=== PATIENT | male | born 1965 | race Caucasian/White ===

== ENCOUNTER 2023-06-26 22:52 | Inpatient (IN) | payer OTHER, SELFPAY ==
[2023-06-26 18:03] VITALS: BP 139/77
[2023-06-26 18:07] LABS: Glucose - Point of Care 334 mg/dl (70-99)
[2023-06-26 18:22] VITALS: BP 129/76
[2023-06-26 18:28] VITALS: BMI 15.7
[2023-06-26] MEDS: NSS 1000 IV ×2 (18:44→21:41)
[2023-06-26 18:47] LABS: Venous Blood Gas B.E. -3.2 mmol/L (-4 to +4); Venous Blood Gas pCO2 39 mmHg (35-48); Venous Blood Gas pH 7.36 (7.32-7.43); Venous Blood Gas pO2 49 mmHg (30-50)
[2023-06-26 18:57] LABS: % Basophils 0.6 % (0-2); % Eosinophils 3.3 % (0-6); % Immature Granulocytes 0.4 % (0-0.5); % Lymphocytes 19.8 % (20.5-51.1); % Monocytes 9.4 % (1.7-9.3); % Neutrophils 66.5 % (42.2-75.2); Absolute Basophils 0.1 10^3/uL (0-0.2); Absolute Eosinophils 0.3 10^3/uL (0-0.7); Absolute Lymphocytes 1.9 10^3/uL (1.2-3.4); Absolute Monocytes 0.9 10^3/uL (0.1-0.6); Absolute Neutrophils 6.3 10^3/uL (1.4-6.5); Hematocrit 28.6 % (39.0-52.0); Hemoglobin 10.6 g/dL (13.0-18.0); Mean Corp Hgb Conc. 37.1 g/dL (33.0-37.0); Mean Corpuscular Hgb 34.9 pg (27.0-31.0); Mean Corpuscular Volume 94.1 fL (80.0-94.0); Nucleated Red Blood Cells % 0 % (-); Red Blood Cell Count 3.04 10^6/uL (4.70-6.10); Red Cell Dist. Width 14.4 % (11.5-14.5); White Blood Cell Count 9.5 10^3/uL (4.8-10.8)
--- NOTE | 2023-06-26 18:58 | ED.GENMED ---
History of Present Illness
General
Chief Complaint: Blood Sugar Problem
Time Seen by Provider: 06/26/23 18:40
Travel History
Have you had any contact with someone who has COVID-19?: No
Do you have any symptoms of coronavirus? Fever > 100 degrees, chills, cough, shortness of breath, sore throat, loss of taste or smell, muscle aches, or headache?: No
History of Present Illness
History of Present Illness:
57-year-old male with history of insulin-dependent diabetes, alcoholic cirrhosis with ascites, and hypertension presents to the emergency department from [facility], accompanied by a staff member, for evaluation of mental status changes
in association with elevated blood sugar for the past 5 days. According to staff member the sugars are occasionally reading 'high' but today were in the 500s. Patient states to me he has been a resident at the [facility] for 6 months but the
staff member refutes this states it has been much shorter than that, states 'probably a few weeks'. Pt can provide little history otherwise.
Review of Systems
Review of Systems
Allergies reviewed?: Yes
All Other Systems: ROS reviewed and negative except as documented in HPI and ROS
Phy Exam
Physical Exam
Physical Exam:
GEN: Well appearing, NAD, WDWN
Eyes: PERRLA, EOMs intact, no scleral icterus
HENT: NCAT, oral mucosa moist, no JVD, no cervical adenopathy.
Lungs: CTAB, no wheezes, rales, rhonchi, normal chest wall excursion
Cardiac: RRR, no M/R/G, no peripheral edema. Radial pulses 2+ bilat
Abdomen: S, NT, ND, NABS, no masses or hepatosplenomegaly
Neuro: Alert, follows commands however appears to be confused, disoriented to time place and year, appears to be ataxic when ambulating, no focal extremity weakness
MSK: No gross deformity or ecchymosis. No edema. No digital clubbing
Skin: No rashes, petechiae. Normal color, no pallor or jaundice.
Psych: Calm, cooperative, proper hygiene
Course
Orders/Labs/Results
Orders:
Orders
06/26/23 18:40
B-Hydroxybutyrate Urgent
Comment: ADDON
Complete Blood Count/With Diff Urgent
Comprehensive Metabolic Panel Urgent
Ferritin Urgent
Comment: ADD ON
Folate Urgent
Comment: ADD ON
Iron Urgent
Comment: ADD ON
Magnesium Urgent
Comment: ADD ON
Serum Osmolality Urgent
Comment: ADD ON
TSH Reflex To Free T4 Urgent
Comment: ADD ON
Total Iron Binding Urgent
Comment: ADD ON
Venous Blood Gas Urgent
%Oxygen/Room Air: 98
Vitamin B12 Urgent
Comment: ADD ON
06/26/23 18:43
0.9% Sodium Chloride 1000 ml [Nss] 1,000 ml IV BOLUS
06/26/23 18:56
Add On- LAB Urgent
Tests Added?: acetone (beta hydroxy)
06/26/23 19:17
Ammonia Urgent
Prothrombin Time Urgent
06/26/23 19:59
CT Head W/o Iv Contrast Urgent
Comment:
Reason For Exam: altered mental status
0.9% Sodium Chloride 1000 ml [Nss] 1,000 ml IV BOLUS
Insulin Aspart [NOVOLOG vial] 15 units SC NOW STA
06/26/23 20:40
Osmolality, Random Urine Urgent
Date Specimen was Collected: 06/26/23
Time Specimen was Collected: 19:00
Comment: ADD ON
Urinalysis Reflex To Culture Urgent
Date Specimen was Collected: 06/26/23
Time Specimen was Collected: 19:00
Urine Sodium Urgent
Date Specimen was Collected: 06/26/23
Time Specimen was Collected: 19:00
Comment: ADD ON
02/17/24 21:43
Bedside Glucose- Treatment ONCE
Lactulose [Duphalac/Chronulac] 20 grams PO NOW STA
06/26/23 22:08
US Abdomen Limited Urgent
Comment:
Reason For Exam: eval for ascites
06/26/23 22:10
Add On- LAB Urgent
Tests Added?: tsh with free t4, urine na, urine osmo , serum osmo,mag
06/26/23 22:19
Add On- LAB Urgent
Tests Added?: b12 folate iron tibc, ferritin
06/26/23 22:20
Admit/Transfer Patient As Directed
Co-Sign Provider:
Level of Care: Inpatient admission
Assign to:: Telemetry
Physician / Group: evelyn blanco
Diagnosis: enceph poss etoh wtihdrawal vs wernicki vs hyperammonemia
Reason for Telemetry: Arrhythmia
Date to Stop Telemetry: 06/29/23
Time to Stop Telemetry: 11:00
Reason for Hospitalization: enceph poss etoh wtihdrawal vs wernicki vs hyperammonemia
Expected length of stay greater than two midnights?: Yes
ELOS- Estimated Length of Stay in days: 4
I certify the patient meets the requirements for IP care: Yes
Code Status As Directed
Resuscitation Status: Full Code
CefTRIAXone [Rocephin] 1,000 mg IV NOW STA
06/26/23 22:24
Sterile Water [Sterile Water For Injection] 10 ml IV NOW STA
06/26/23 23:00
Flush (0.9% Sodium Chloride) [Flush (Nss)] See Dose Instructions IV PER PROTOCOL
06/26/23 23:31
0.9% Sodium Chloride 1000 ml [Nss] 1,000 ml IV 60 mls/hr
0.9% Sodium Chloride [Nss (Preservative Free)] See Protocol IV PRN PRN
Dextrose 50%-Water [Dextrose 50% Syringe] 12.5 grams IV [id number] PRN
FOLic ACID [Folvite] 1 mg 0.9% Sodium Chloride 50 ml [Nss] 50 ml IV DAILYPRN
Glucagon [GlucaGen] 1 mg IM PRN PRN
Lorazepam [Ativan] 1 mg IV Q1HPRN PRN
Lorazepam [Ativan] 1 mg PO Q2HPRN PRN
Lorazepam [Ativan] 2 mg IV Q1HPRN PRN
Mirtazapine [Remeron] 15 mg PO HS PRN
Pantoprazole [Protonix] 40 mg PO HSPRN PRN
06/26/23 23:31
Case Management Consult Once
Case Management Consult: Other
Comment: Substance abuse counseling
DIETARY CONSULT Routine
Reason for Consult: Nutrition support, possible refeeding guidelines
Urinalysis Routine
Urine Drug Abuse Screen Routine
Activity As Directed
Activity Level: As Tolerated
Bedside Glucose Monitoring As Directed
Frequency: AC&HS
Comment: Change to q6h if pt on TPN, tube feeding or not eating
Intake/ Output As Directed
Frequency: Per unit guidelines
MSAS SCORE As Directed
MSAS Score 0-4: Repeat MSAS every 2 hours until 0-4 for three consecutive assessments, then every 4 hours x 48
hours.
MSAS Score 5-7: For MILD withdrawl symptoms. Repeat MSAS and RASS every 2 hours
MSAS Score 8-11: For MODERATE withdrawal symptoms. Repeat MSAS and RASS every 1 hour. Consider ICU or IMU
level of care.
MSAS Score > 11: For SEVERE withdrawal symptoms. Repeat MSAS and RASS every 1 hour. Notify provider, consider
ICU level of care.
MSAS Additional Instructions: If no improvement or no decrease in score from severe to moderate within 12
hours, consult psychiatry
MSAS Notify Provider: Notify provider if patient requires more than 10 mg of Lorazepam in eight hour period.
Neurological Checks As Directed
Frequency: q4h
Pneumatic Compression Sleeves As Directed
Type: Knee high
Precautions As Directed
Type of Precautions: Other
Comment: fall
Vital Signs As Directed
Frequency: Per unit guidelines
Ot Eval And Treat Routine
Pt Eval And Treat Routine
Activity Level: As Tolerated
DX Deep Vein Thrombosis Video Routine
06/26/23 23:47
Alcohol Urgent
B-Hydroxybutyrate Urgent
GGTP Urgent
Magnesium Urgent
Phosphorus Urgent
06/27/23 00:00
Thiamine Injection 200 mg IV Q8
06/27/23 Breakfast
1800 calorie (15 carb) Diabetic
At Your Request: Full Participation
Complete Blood Count/With Diff IN AM
Comprehensive Metabolic Panel IN AM
Glycohemoglobin (HgbA1c) IN AM
06/27/23 07:30
Insulin Aspart Corrective Mod [Novolog Flexpen-Moderate Resistance] See Protocol SC AC
06/27/23 08:00
Docusate Sodium [Colace] 100 mg PO BID
FOLic ACID [Folvite] 1 mg PO DAILY
Ferrous Sulfate [Feosol] 325 mg PO DAILY
Fluticasone/Salmeterol 115/21 [Advair Hfa 115/21 Mcg Inhaler] 2 puff INH R BID
Ipratropium/Albuterol Sulfate [Duoneb] 3 ml INH R TID
Lactulose [Duphalac/Chronulac] 45 grams PO TID
venlafaxine 150 mg PO DAILY
06/27/23 22:00
ARIPiprazole [Abilify] 5 mg PO HS
Prazosin HCl [Minipress] 5 mg PO HS
06/27/23 23:00
CefTRIAXone [Rocephin] 1,000 mg IV Q24H
Sterile Water [Sterile Water For Injection] 10 ml IV Q24H
06/28/23 06:00
Complete Blood Count/With Diff IN AM
Comprehensive Metabolic Panel IN AM
06/29/23 06:00
Complete Blood Count/With Diff IN AM
Comprehensive Metabolic Panel IN AM
06/29/23 11:00
DC Protocol for Telemetry ONCE
06/30/23 08:00
Thiamine HCl [Vitamin B1] 100 mg PO BID
Abnormal Lab Results
06/26/23 06/26/23 06/26/23
18:06 18:40 19:17
RBC 3.04 L 10^6/uL
(4.70-6.10)
Hgb 10.6 L g/dL
(13.0-18.0)
Hct 28.6 L %
(39.0-52.0)
MCV 94.1 H fL
(80.0-94.0)
MCH 34.9 H pg
(27.0-31.0)
MCHC 37.1 H g/dL
(33.0-37.0)
Plt Count 65 L 10^3/uL
(130-400)
MPV 10.9 H fL
(7.4-10.4)
Absolute Monos (auto) 0.9 H 10^3/uL
(0.1-0.6)
Lymphocytes % 19.8 L %
(20.5-51.1)
Monocytes % 9.4 H %
(1.7-9.3)
PT 19.0 H Sec
(11.4-14.6)
Sodium 129 L mmol/L
(135-145)
Carbon Dioxide 21 L mmol/L
(22-30)
BUN 24 H mg/dl
(9-20)
Creatinine 1.7 H mg/dL
(0.7-1.3)
Glucose 314 H mg/dl
(70-99)
TIBC 212 L ug/dl
(261-462)
Total Bilirubin 2.5 H mg/dl
(0.2-1.3)
ALT 57 H U/L
(0-50)
Ammonia 66 H umol/L
(9-30)
Total Protein 5.6 L g/dl
(6.3-8.2)
Albumin 2.5 L g/dl
(3.5-5.0)
Urine Glucose
POC Glucose 334 H mg/dl
(70-99)
06/26/23 06/26/23 06/26/23
20:40 20:50 22:05
RBC
Hgb
Hct
MCV
MCH
MCHC
Plt Count
MPV
Absolute Monos (auto)
Lymphocytes %
Monocytes %
PT
Sodium
Carbon Dioxide
BUN
Creatinine
Glucose
TIBC
Total Bilirubin
ALT
Ammonia
Total Protein
Albumin
Urine Glucose Trace A
(Negative)
POC Glucose 314 H mg/dl 273 H mg/dl
(70-99) (70-99)
06/26/23 18:40
06/26/23 18:40
Vital Signs
Initial and Last Documented VS:
Initial Vital Signs
Temp Pulse Resp BP Pulse Ox
98.2 F 89 18 139/77 100
06/26/23 18:03 06/26/23 18:03 06/26/23 18:03 06/26/23 18:03 06/26/23 18:03
Last Documented Vital Signs
Temp Pulse Resp BP Pulse Ox
98.2 F 86 14 106/70 99
06/26/23 18:03 06/26/23 23:15 06/26/23 23:15 06/26/23 23:00 06/26/23 19:45
MDM/Problems Addressed
MDM/Problems Addressed:
Patient is clearly encephalopathic but the source is not known at this time. Certainly could consider Warnicke Korsakoff syndrome however patient's recent sobriety would suggest against this developing acutely. I feel he is likely out of the
timeframe for alcohol withdrawal. That said it is not known exactly how long he has been in a sober living house and how compliant with restrictions he has been. Unfortunately history is quite limited as the patient cannot provide any solid
details. Elevated ammonia level may suggest hepatic encephalopathy however he was noted to be elevated to a greater degree earlier this week at his facility and his mental status is only worsened. CT of the head is unremarkable. Will admit to the
hospitalist service for further management
*Critical Care Note
Total Time (30-74mins, 75-104mins- exclusive of procedures): Not Applicable
ED Attending Note
-
Portions of this chart may have been created with voice recognition software.� Occasional wrong word or��sound alike� substitutions may have occurred due to the inherent limitations of voice recognition software.
Discharge Plan
Departure
Patient Disposition: Admit
Date of Disposition: 06/26/23
Time of Disposition: 21:45
Presentation/result/management discussed w/ accepting MD/DO: Hospitalist
Discharge Problem:
Acute metabolic encephalopathy, Hyperammonemia
Interventions
Interventions:
*Risk Screen - Suicide Last Done: 06/26/23 18:28
*General Assessment Last Done: 06/26/23 18:28
*Neglect/Abuse Screening Last Done: 06/26/23 18:28
ED- Fall Risk Assessment Last Done: 06/26/23 18:28
*ED COVID-19 Vaccine History Last Done: 06/26/23 18:28
*Nursing Disposition Last Done: 06/26/23 23:40
ED- Neurological Assessment Last Done: 06/26/23 18:28
Discharge Date and Time
Discharge Date/Time: 06/26/23 23:41
[2023-06-26 19:00] VITALS: BP 109/49
[2023-06-26 19:00] LABS: Venous Blood Gas O2 Therapy %Oxygen/Room Air 98
[2023-06-26 19:10] LABS: ALT (SGPT) 57 U/L (0-50); AST (SGOT) 46 U/L (17-59); Albumin 2.5 g/dl (3.5-5.0); Alkaline Phosphatase 90 U/L (38-126); Blood Urea Nitrogen 24 mg/dl (9-20); Calcium 9.1 mg/dl (8.4-10.2); Carbon Dioxide 21 mmol/L (22-30); Chloride 102 mmol/L (98-107); Estimated Creatinine Clearance 37 ml/min; Glucose 314 mg/dl (70-99); Potassium 4.2 mmol/L (3.5-5.1); Sodium 129 mmol/L (135-145); Total Bilirubin 2.5 mg/dl (0.2-1.3); Total Protein 5.6 g/dl (6.3-8.2); eGFR 47.02
[2023-06-26 19:15] LABS: Mean Platelet Volume 10.9 fL (7.4-10.4)
[2023-06-26 19:16] LABS: Platelet Count 65 10^3/uL (130-400)
[2023-06-26 19:22] LABS: B-Hydroxybutyrate 0.08 mmol/L (0.02-0.27)
--- NOTE | 2023-06-26 19:31 | PHANOTE ---
06/26/2023, [employer], spoke to Behavioral Health Wrapper Stemmer Operator (BHT) from [facility] to obtain pt.'s med history; used a list that BHT provided; could not confirm these meds. with another source as pt. has no pharmacy fill data or [facility]
records. Nurse Practitioner from facility states that pt. uses Novolog Insulin on a sliding scale ACHS (sliding scale: if BS 130 = 2 units; 180 = 4 units; 230 = 6 units; 280 = 8 units; 330 = 10 units; 380 = 12 units; over 400 call BIZTALK SOFTWARE DEVELOPER).
[2023-06-26 19:46] LABS: INR 1.62
[2023-06-26 19:48] LABS: Ammonia 66 umol/L (9-30)
[2023-06-26] MEDS: NOVOLOG vial 15 UNITS SC (20:46)
[2023-06-26 20:53] LABS: Urine Albumin Negative (Neg - Trace); Urine Bilirubin Negative (Negative); Urine Character Clear (Clear); Urine Color Yellow; Urine Glucose Trace (Negative); Urine Ketone Negative (Negative); Urine Leukocyte Negative (Negative); Urine Nitrite Negative (Negative); Urine Occult Blood Negative (Negative); Urine Urobilinogen 1+ (Neg - 1+)
[2023-06-26 20:55] LABS: Glucose - Point of Care 314 mg/dl (70-99)
[2023-06-26 21:00] VITALS: BP 135/65
--- NOTE | 2023-06-26 21:54 | HPS.HSE ---
Addendum entered and electronically signed by Oliver Pollard MD 06/26/23 23:28:
Attending addendum.
Pt independently seen, interviewed and examined. Agree with DIRECTOR CLINICAL RESEARCH note below.
57 man with change of mental status and confusion, alcoholism, not currently drinking.
Exam: Abd soft, non-focal. Very confused.
ct head:�chronic small vessel ischemic disease
A/P:
Change of mental status can be Encephalopathy� 2/2 to poss Wernickes vs Alcohol withdrawal vs Hyperammonemia, vs hyperglycemia
SBP less likely given normal WBC, no fever, no abd pain, no ascites on US.
+ Visual hallucinations seeing 'zebras'
INR 1.62, ALT 57, T. bili 2.5
Start MSAs screen protocol and give
IV thiamine,
IV folate,
IV Ativan
See integrity manager note below for further details on
-PT/OT/case management consult
#Hx alcoholic cirrhosis with history of ascites
#HX paracentesis X 1 in past unsure when
#Hyperammonemia
#DM2 with acute hyperglycemia
#ERIN versus CKD 3B
#Hyponatremia�mild
#chronic daily prednisone unclear reason?
#Gerd
#Anemia�macrocytic
#Thrombocytopenia likely secondary to alcoholic serum versus
#Depression
#Restless leg syndrome
�
Original Note:
Family Physician
-
Family Physician: * NONE
Chief Complaint
-
confusion
History of Present Illness
57-year-old male from [facility] with hyperglycemia for the past 5 days sugars in the 500s. The staff reported to ER ammonia was 88 and currently in the ER is 66. Patient is currently confused when asked where he is at he stated'
my business'. He believes he is in a hospital he is not oriented to year or month. He answers questions with '2 hours' he believes he has been confused he states he believes he has not taken his meds in a few days although is unsure. He denies
current headache, blurred vision, chest pain, palpitations, shortness of breath, cough, nausea, vomiting, diarrhea he denies abdominal pain although was tender on palpation but states 'I always have that'. he has past medical history of alcoholic
cirrhosis with ascites, history of paracentesis x 1 in past HTN, DM 2 since age 32s.
Medical History
Past Medical History
Past Medical History: Reports Other ( alcoholic cirrhosis with ascites, HTN, DM 2.)
Past Surgical History: Reports None
Social History
Tobacco: Non-smoker
Alcohol: Former (24- 30 beers day thinks stopped 2 months ago )
Drug: None
Family History
Family History: Unable to Obtain
Allergies / Home Medications
Allergies reflects when Allergies were last updated in [employer].
Home Medications with original date entered in [employer]
Allergy/Medication List:
Allergies
Allergy/AdvReac Type Severity Reaction Status Date / Time
bee venom protein (honey bee) Allergy Unknown Verified 06/26/23 18:07
Home Medications
aripiprazole 5 mg tablet 5 mg PO HS 06/26/23
ascorbic acid (vitamin C) 500 mg tablet (Vitamin C) 500 mg PO DAILY 06/26/23
diclofenac sodium 1 % topical gel 1 g topical DAILYPRN PRN apply to B/L knees 06/26/23
docusate sodium 100 mg capsule 100 mg PO BID 06/26/23
ferrous sulfate 325 mg (65 mg iron) tablet 325 mg PO DAILY 06/26/23
fluticasone 250 mcg-salmeterol 50 mcg/dose blistr powdr for inhalation (Wixela Inhub) 1 inh inhalation R BID 06/26/23
glipizide 2.5 mg tablet 2.5 mg PO DAILY 06/26/23
insulin aspart U-100 100 unit/mL (3 mL) subcutaneous pen (Novolog FlexPen U-100 Insulin aspart) 0 sliding scale dose SC ACHS 06/26/23
ipratropium 0.5 mg-albuterol 3 mg (2.5 mg base)/3 mL nebulization soln 3 ml inhalation R TID 06/26/23
lactulose 10 gram/15 mL oral solution 45 ml PO TID 06/26/23
lisinopril 10 mg tablet 10 mg PO DAILY 06/26/23
mirtazapine 15 mg tablet 15 mg PO HS PRN antidepressant 06/26/23
omeprazole 20 mg capsule,delayed release 20 mg PO HSPRN PRN gerd 06/26/23
prazosin 5 mg capsule 5 mg PO HS 06/26/23
prednisone 20 mg tablet 20 mg PO DAILY 06/26/23
spironolactone 100 mg tablet 100 mg PO DAILY 06/26/23
venlafaxine 75 mg tablet 150 mg PO DAILY 06/26/23
Review of Systems
-
History Source: Patient and Other (staff at sober living )
A 12 point ROS was completed and negative except as noted: Yes
Constitutional: Reports Other (confusion); Denies Fever or Chills
EENT: Denies Tearing or Runny Nose
Respiratory: Denies Cough or Trouble Breathing
Cardiac: Denies Chest Pain, Diaphoresis, Palpitations or Syncope
Abdomen/GI: Denies Abdominal Pain, Nausea, Vomiting, Diarrhea, Constipated, Bloody Stools or Black Stools
: Denies Dysuria, Frequency or Flank Pain
Musculoskeletal: Denies Joint Pain or Edema
Skin: Denies Itching or Rash
Neurological: Denies Dizzy, Headache or Weakness
Endocrine: Reports No Symptoms
Hematologic/Lymphatic: Reports No Symptoms
Psych: Reports Calm
Physical Exam
Vital Signs
Vital Signs
Temp Pulse Resp BP Pulse Ox
98.2 F 78 13 135/65 99
06/26/23 18:03 06/26/23 21:15 06/26/23 21:15 06/26/23 21:00 06/26/23 19:45
Physical Exam
General: Comfortable and Other (confused but awake thinks he is at a hospital in [place] unsure of year , date month or place of living, answers with ' its my buisness or 2 hours')
HEENT: NormoCephalic, Anicteric, Moist mucous membranes, PERRLA, Offerle Conjunctivae and Neck Nontender
Respiratory: Clear; No Wheezes, Rales or Rhonchi
Cardiac: S1/S2 and Regular Rhythm; No Murmur, Rub, Gallop or Peripheral Edema
Breast: Deferred by me
GI: Soft, Non Distended, Normal Bowel Sounds, Tender (generalized but soft abdomen ) and No Hepatosplenomegaly
Genito-urinary: Deferred by me
Musculoskeletal: No Clubbing, No Cyanosis and No Edema
Neuro: Awake, Alert (confused but awake thinks he is at a hospital in [place] unsure of year , date month or place of living, answers with ' its my buisness or 2 hours'), No Motor Deficits and No Sensory Deficits; No Slurred Speech, Facial Droop or
Tremors
Psych: Calm
Laboratory Results
-
06/26/23 18:40
06/26/23 18:40
Laboratory Results
PT 19.0 Sec (11.4-14.6) H 06/26/23 19:17
INR 1.62 06/26/23 19:17
Total Bilirubin 2.5 mg/dl (0.2-1.3) H 06/26/23 18:40
AST 46 U/L (17-59) 06/26/23 18:40
ALT 57 U/L (0-50) H 06/26/23 18:40
Alkaline Phosphatase 90 U/L (38-126) 06/26/23 18:40
Impression/Plan
-
Impression/plan:
Admit to telemetry
#Encephalopathy 2/2 to poss Wernickes vs Alcohol withdrawal vs Hyperammonemia
Visual hallucinations seeing zebras to Er although denies
INR 1.62, ALT 57, T. bili 2.5
-MSAs screen protocol IV thiamine, IV folate, IV Ativan
-PT/OT/case management consult
ct head: chronic small vessel ischemic disease
#Hx alcoholic cirrhosis with history of ascites
#HX paracentesis X 1 in past unsure when
WBC negative, afebrile low suspicion for SBP but reports tenderness on exam
will check abd ultrasound for ascites if present will need IR consult for paracentesis
- Will cover for SBP with Iv Rocephin
#Hyperammonemia
Ammonia 66
-Resume lactulose 45mg tid
#DM2 with acute hyperglycemia
BS 314 check HgbA1c, beta hydroxybutyrate
-SSI
hold glipizide
#ERIN versus CKD 3B
creat 1.7, bun 24
Iv Nss 60 cc/hr x 1 liter
-Hold Lisinopril 10 mg daily ,hold spironlactone
#Hyponatremia�mild
NA 129
TSH with T4 reflex, urine Osmo, urine NA, serum Osmo
#chronic daily prednisone unclear reason?
cont prednisone 20 mg daily
#Gerd
-cont omeprazole
#Anemia�macrocytic
Hgb 10.6, MCV 94.1
-Check B12, folate, iron panel
-cont feosol
#Thrombocytopenia likely secondary to alcoholic serum versus
PLT 65 follow CBC
#Depression
cont effexor
#Restless leg syndrome
cont requip
DVT prophylaxis
SCDs
Full code
[2023-06-26 22:00] VITALS: BP 136/70
[2023-06-26] MEDS: DUPHALAC/CHRONULAC 20 GRAMS PO (22:06)
[2023-06-26 22:07] LABS: Glucose - Point of Care 273 mg/dl (70-99)
[2023-06-26 22:57] LABS: Osmolality Urine 339 mOsm/kg (300-900)
[2023-06-26 22:59] LABS: Osmolality Serum 289 mOsm/kg (275-300)
[2023-06-26 23:00] VITALS: BP 106/70
[2023-06-26 23:05] LABS: Iron 56 ug/dl (49-181); Magnesium 1.8 mg/dl (1.6-2.3)
[2023-06-26 23:14] LABS: Percent Saturation 26 % (20-50); Total Iron Binding Capacity 212 ug/dl (261-462)
[2023-06-26] MEDS: STERILE WATER FOR INJECTION 10 ML IV (23:14)
[2023-06-26] MEDS: ROCEPHIN 1000 MG IV (23:14)
[2023-06-26 23:28] LABS: TSH Reflex To Free T4 2.13 uIU/ml (0.47-4.68)
[2023-06-26 23:34] LABS: Urine Sodium 40 mmol/L (30-90)
--- NOTE | 2023-06-26 23:45 | PTCARENOTE ---
Received pt from ED via stretcher. Ambulated to bed with assist x1. AAOx1-2. Unable to state place, month and president. Pt unable to answer all admission questions and difficulty following commands. Pt unable to demonstrate use of call traylor. Bed
alarm placed. telemetry monitor #15 placed and reading NSR. Assessed and oriented to room. Call traylor within close reach. Will continue to monitor.
[2023-06-26 23:47] LABS: Glucose - Point of Care 212 mg/dl (70-99)
[2023-06-27] VITALS (8 sets, daily range): BP systolic 136–160; BP diastolic 66–86; PULSE 89; O2SAT 97; BMI 29.6
[2023-06-27 00:17] LABS: Magnesium 1.8 mg/dl (1.6-2.3); Phosphorus 3.2 mg/dl (2.5-4.5)
[2023-06-27] MEDS: NSS 1000 IV (00:17)
[2023-06-27] MEDS: THIAMINE INJECTION 200 MG IV ×4 (00:18→23:13)
[2023-06-27 00:23] LABS: B-Hydroxybutyrate 0.09 mmol/L (0.02-0.27)
[2023-06-27 00:26] LABS: GGTP 85 U/L (15-73)
[2023-06-27 00:39] LABS: Folate 5.7 ng/ml (2.76-20); Vitamin B12 > 1000 pg/ml (239-931)
[2023-06-27 00:40] LABS: Alcohol None Detected
[2023-06-27 08:02] LABS: Glucose - Point of Care 155 mg/dl (70-99)
[2023-06-27] MEDS: DUONEB 3 ML INH ×3 (08:22→20:13)
[2023-06-27] MEDS: ADVAIR HFA 115/21 MCG INHALER 2 PUFF INH ×2 (08:23→20:14)
[2023-06-27] MEDS: NOVOLOG FLEXPEN-MODERATE RESISTANCE 1 UNITS SC (08:29)
[2023-06-27] MEDS: FEOSOL 325 MG PO (08:30)
[2023-06-27] MEDS: COLACE 100 MG PO ×2 (08:30→21:05)
[2023-06-27] MEDS: EFFEXOR XR 150 MG PO (08:30)
[2023-06-27] MEDS: DELTASONE 20 MG PO (08:31)
[2023-06-27] MEDS: FOLVITE 1 MG PO (08:31)
[2023-06-27] MEDS: DUPHALAC/CHRONULAC 45 GRAMS PO ×3 (08:31→21:15)
[2023-06-27 08:32] LABS: ALT (SGPT) 52 U/L (0-50); AST (SGOT) 49 U/L (17-59); Albumin 2.4 g/dl (3.5-5.0); Alkaline Phosphatase 83 U/L (38-126); Blood Urea Nitrogen 24 mg/dl (9-20); Calcium 8.7 mg/dl (8.4-10.2); Carbon Dioxide 20 mmol/L (22-30); Chloride 109 mmol/L (98-107); Estimated Creatinine Clearance 75 ml/min; Glucose 145 mg/dl (70-99); Potassium 4.1 mmol/L (3.5-5.1); Sodium 134 mmol/L (135-145); Total Bilirubin 2.5 mg/dl (0.2-1.3); Total Protein 5.5 g/dl (6.3-8.2); eGFR 59.36
[2023-06-27 08:37] LABS: % Basophils 0.8 % (0-2); % Eosinophils 4.7 % (0-6); % Immature Granulocytes 0.8 % (0-0.5); % Lymphocytes 21.1 % (20.5-51.1); % Monocytes 12.5 % (1.7-9.3); % Neutrophils 60.1 % (42.2-75.2); Absolute Basophils 0.1 10^3/uL (0-0.2); Absolute Eosinophils 0.3 10^3/uL (0-0.7); Absolute Immature Granulocytes 0.1 10^3/uL (0-0.05); Absolute Lymphocytes 1.4 10^3/uL (1.2-3.4); Absolute Monocytes 0.8 10^3/uL (0.1-0.6); Hematocrit 28.7 % (39.0-52.0); Hemoglobin 10.6 g/dL (13.0-18.0); Mean Corp Hgb Conc. 36.9 g/dL (33.0-37.0); Mean Corpuscular Hgb 33.3 pg (27.0-31.0); Mean Corpuscular Volume 90.3 fL (80.0-94.0); Mean Platelet Volume 11.4 fL (7.4-10.4); Nucleated Red Blood Cells % 0 % (-); Platelet Count 59 10^3/uL (130-400); Red Blood Cell Count 3.18 10^6/uL (4.70-6.10); Red Cell Dist. Width 14.7 % (11.5-14.5); White Blood Cell Count 6.6 10^3/uL (4.8-10.8)
[2023-06-27 10:26] LABS: Glycohemoglobin (HgbA1c) 8.8 % (4.0-5.6)
--- NOTE | 2023-06-27 11:13 | W.PN.HOSP.TC ---
Today's Communication/Plan
-
consult psych and neuro
follow ammonia
agree with high dose thiamine repletion
check MRI w & w/o contrast
Assessment / Plan
Assessment / Plan
pt is a 57 year old male
Encephalopathy�of unclear cause--doubt CVA, doubt ETOH WD, seems to be an expressive and receptive aphasia--possible Wernicke's vs Hyperammonemia (NH3 66)--reported Visual hallucinations with seeing zebras to ED although denied to admitting MD--cont
MSAS, cont thiamine, folate--start lactulose and follow ammonia--consult psych/neuro
Hx alcoholic cirrhosis with history of ascites/HX paracentesis X 1 in past unsure when--low suspicion for SBP--US no ascites--stop rocephin
Hyperammonemia--lactulose 45mg tid--follow level
DM2 with acute hyperglycemia--BS 314 check HgbA1c, beta hydroxybutyrate--SSI--�restart glipizide
ERIN versus CKD 3B--no previous labs here--creat improved from 1.7 to 1.4�-Hold Lisinopril 10 mg daily, hold spironlactone--restart as soon as able
Hyponatremia�mild--improved from 129 to 134--TSH WNL
chronic daily prednisone unclear reason?--cont prednisone 20 mg daily--watch for stress dose steroid needs
GERD-�-cont omeprazole
Anemia of chronic disease--iron, B12, folate all WNL�cont feosol
Thrombocytopenia likely secondary to alcoholic serum versus--plt low
Depression--�cont effexor
Restless leg syndrome--cont requip
DVT prophylaxis--SCDs
CODE STATUS -- FULL CODE
Anticipated Discharge: > 48 hours
Subjective/Interval History
-
Date of Service: June 27, 2023
pt with expressive aphasia and what seems like receptive as well from speaking with nursing and therapy
Objective Data
-
Labs:
Laboratory Results
06/27/23
06:47
WBC 6.6
Hgb 10.6 L
Hct 28.7 L
Plt Count 59 L
Sodium 134 L
Potassium 4.1
Chloride 109 H
Carbon Dioxide 20 L
BUN 24 H
Creatinine 1.4 H
Glucose 145 H
Calcium 8.7
Total Bilirubin 2.5 H
AST 49
ALT 52 H
Alkaline Phosphatase 83
Vital Signs:
max temp for 24 hours
06/27/23
03:41
Temp 99.2 F
Vital Signs
Temp Pulse Resp BP Pulse Ox
98.6 F 88 14 149/68 95
06/27/23 07:48 06/27/23 08:29 06/27/23 08:29 06/27/23 07:48 06/27/23 08:29
I&O
06/26/23 06/27/23 06/28/23
06:59 06:59 06:59
Intake Total 450 / 450
Balance 450 / 450
Review of Systems
-
Unable to obtain full review of systems at this time due to: Acuity
Physical Exam
-
General: Well Developed, Well Nourished and No Apparent Distress
HEENT: Normocephalic and Atraumatic; Negative Oxygen
Respiratory: Clear to Auscultation; Negative Wheezes, Rhonchi or Crackles
Cardiac: Regular Rhythm and S1/S2; Negative Murmur
GI: Soft, Nontender, Nondistended and Normal Bowel Sounds
Musculoskeletal: No Clubbing, No Cyanosis and No Edema
Neuro: Awake
Psych: Calm
--- NOTE | 2023-06-27 11:47 | CON.NEURO ---
Consultation
Order
Date of Consultation: 06/27/23
Reason for Consult: encephalopathy
CC: none
HPI: This is a 57-year-old RH man who presented to [facility] on June 26, 2023 with encephalopathy.
Mr. Mccormack is unable to provide a history due to dysphasia. He denies history of headache, recent head trauma, motor or sensory deficits and states that he had a seizure in the past
ER VS: 139/77, 89, afebrile
PDMP:no Rxed meds
Labs: glucose�212, creatinine�1.4, negative alcohol, unremarkable urinalysis, hemoglobin A1c�8.8, platelets�59, normal WBCs, ammonia-66.
CT head-Mild volume loss and leukoaraiosis.
EKG-not available
PMH: EtOH addiction in remission, HTN, DM, obesity, hepatic cirrhosis, EARLINE,
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
FH: Noncontributory to current presenting
All NKDA:
ROS: Negative for headache, tongue injury, weakness, change in vision strength or sensory
General: Well developed. In no acute distress.
Cardio: Regular rate and rhythm without murmur. Extremities are without cyanosis or edema.
Neuro:
Mental Status: Alert, oriented to age, not to place or time. Expressive greater than receptive nonfluent aphasia. Perseverates.
Cranial Nerves: Pupils are equally round and reactive to light. EOMs full. BTT BL. No ptosis. No nystagmus. Face symmetric. Normal hearing AU. The palate elevated well. SCMs and traps 5/5. Tongue midline. No dysarthria.
Motor: Normal bulk and tone. No pronator or arm drift. Strength 5/5 throughout. No clonus.
Reflexes: 2+ throughout the upper extremities and 3 knees. Plantar responses flexor bilaterally. Negative Marcella's bilateral
Sensory: Limited exam due to poor attention
Coordination: Bilateral UE myoclonus
Gait: deferred
Assessment and Plan:
I. Encephalopathy, likely toxic-metabolic. Rule out vascular and infectious etiologies
II. Thrombocytopenia
III. History of EtOH addiction
-Seizure precautions
-Will obtain collateral history
-Brain MRI wo earline MAURO
-Routine EEG
-Please check TFTs, CK, ua tox.
-Start acyclovir
-Continue IV thiamine
-EKG
-Will follow
I personally reviewed all radiology and labs along with past medical records pertinent to current medical problems. Total time spent in patient care is 60 minutes.
Thank you for allowing us to participate in the care of this patient. We will continue to follow. Please do not hesitate to contact us with any questions or concerns.
Subjective/Objective
Subjective Data
Date of Service: June 27, 2023
Objective Data
Vital Signs
Temp Pulse Resp BP Pulse Ox
36.8 C 97 18 147/83 100
06/27/23 11:19 06/27/23 11:19 06/27/23 11:19 06/27/23 11:19 06/27/23 11:19
Lab Results
06/27/23 06:47
06/27/23 06:47
PT 19.0 Sec (11.4-14.6) H 06/26/23 19:17
INR 1.62 06/26/23 19:17
Sodium 134 mmol/L (135-145) L 06/27/23 06:47
Potassium 4.1 mmol/L (3.5-5.1) 06/27/23 06:47
BUN 24 mg/dl (9-20) H 06/27/23 06:47
Glucose 145 mg/dl (70-99) H 06/27/23 06:47
Calcium 8.7 mg/dl (8.4-10.2) 06/27/23 06:47
Phosphorus 3.2 mg/dl (2.5-4.5) 06/26/23 23:47
Vitamin B12 > 1000 pg/ml (239-931) H 06/26/23 18:40
Patient Allergies
bee venom protein (honey bee) Allergy (Verified 06/26/23 18:07)
Unknown
Medications
-
Active Medications
Generic Name Dose Route Start Last Admin
Trade Name Freq PRN Reason Stop Dose Admin
Albuterol/Ipratropium 3 ml 06/27/23 08:00 06/27/23 08:22
Ipratropium 0.5/Albuterol 3 Mg (3 Ml Ampul) INH 07/25/23 07:59 3 ml
R TID SHIRA Administration
Protocol
Aripiprazole 5 mg 06/27/23 22:00
Aripiprazole 5 Mg Tablet PO 07/25/23 21:59
HS SHIRA
Dextrose 12.5 grams 06/26/23 23:31
Dextrose 50% (0.5 Grams/Ml) 50 Ml Syringe IV 07/24/23 23:30
[id number] PRN
hypoglycemia
Protocol
Docusate Sodium 100 mg 06/27/23 08:00 06/27/23 08:30
Docusate Sodium 100 Mg Capsule PO 07/25/23 07:59 100 mg
BID SHIRA Administration
Ferrous Sulfate 325 mg 06/27/23 08:00 06/27/23 08:30
Ferrous Sulfate 325 Mg Tablet PO 07/25/23 07:59 325 mg
DAILY SHIRA Administration
Folic Acid 1 mg 06/27/23 08:00 06/27/23 08:31
Folic Acid 1 Mg Tablet PO 07/25/23 07:59 1 mg
DAILY SHIRA Administration
Glucagon 1 mg 06/26/23 23:31
Glucagon 1 Mg Vial IM 07/24/23 23:30
PRN PRN
hypoglycemia
Protocol
Folic Acid 1 mg/ Sodium 50.2 mls @ 200.8 mls/hr 06/26/23 23:31
Chloride IV 07/24/23 23:30
DAILYPRN PRN
if NPO
Sodium Chloride 1,000 mls @ 60 mls/hr 06/26/23 23:31 06/27/23 00:17
Nss IV 06/27/23 16:10 1,000 mls
.[id number] SHIRA Administration
Insulin Aspart 0 units 06/27/23 07:30 06/27/23 08:29
Insulin Aspart Moderate Resistance 300 Units/3 Ml Pen.Injctr SC 07/25/23 07:29 1 units
AC SHIRA Administration
Protocol
Lactulose 45 grams 06/27/23 08:00 06/27/23 08:31
Lactulose Solution (20 Grams/30 Ml) 30 Ml Cup PO 07/25/23 07:59 45 grams
TID SHIRA Administration
Lorazepam 1 mg 06/26/23 23:31
Lorazepam 1 Mg Tablet PO 07/24/23 23:30
Q2HPRN PRN
MSAS 5-7
Lorazepam 1 mg 06/26/23 23:31
Lorazepam 2 Mg/Ml Vial IV 07/24/23 23:30
Q1HPRN PRN
MSAS 8-11
Lorazepam 2 mg 06/26/23 23:31
Lorazepam 2 Mg/Ml Vial IV 07/24/23 23:30
Q1HPRN PRN
MSAS > 11
Mirtazapine 15 mg 06/26/23 23:31
Mirtazapine 15 Mg Regular Release Tablet PO 07/24/23 23:30
HS PRN
antidepressant
Pantoprazole Sodium 40 mg 06/26/23 23:31
Pantoprazole 40 Mg Delayed Release Tablet PO 07/24/23 23:30
HSPRN PRN
GERD
Prazosin HCl 5 mg 06/27/23 22:00
Prazosin 5 Mg Capsule PO 07/25/23 21:59
HS SHIRA
Prednisone 20 mg 06/27/23 08:00 06/27/23 08:31
Prednisone 20 Mg Tablet PO 07/25/23 07:59 20 mg
DAILY SHIRA Administration
Fluticasone/Salmeterol 2 puff 06/27/23 08:00 06/27/23 08:23
Advair Hfa 115/21 Inhaler INH 07/25/23 07:59 2 puff
R BID SHIRA Administration
Sodium Chloride 0 flush 06/26/23 23:00
Sodium Chloride 0.9% (Flush) Syringe IV 07/24/23 22:59
PER PROTOCOL SHIRA
Sodium Chloride 0 ml 06/26/23 23:31
Sodium Chloride 0.9% (Preservative Free) 10 Ml Vial IV 07/24/23 23:30
PRN PRN
To dilute IV Ativan
Protocol
Thiamine HCl 200 mg 06/27/23 00:00 06/27/23 08:30
Thiamine (100 Mg/Ml) 2 Ml Vial IV 06/29/23 16:01 200 mg
Q8 SHIRA Administration
Thiamine HCl 100 mg 06/30/23 08:00
Thiamine 100 Mg Tablet PO 07/28/23 07:59
BID SHIRA
Venlafaxine HCl 150 mg 06/27/23 08:30 06/27/23 08:30
Venlafaxine 150 Mg Extended Release Capsule PO 07/25/23 08:29 150 mg
DAILY SHIRA Administration
Home Medications
Medication Instructions Recorded
aripiprazole 5 mg tablet 5 mg PO HS Mental Health/Anxiety 06/26/23
ascorbic acid (vitamin C) 500 mg 500 mg PO DAILY Supplement 06/26/23
tablet (Vitamin C)
diclofenac sodium 1 % topical gel 1 g topical DAILYPRN PRN apply to 06/26/23
B/L knees
docusate sodium 100 mg capsule 100 mg PO BID Constipation 06/26/23
ferrous sulfate 325 mg (65 mg 325 mg PO DAILY Supplement 06/26/23
iron) tablet
fluticasone 250 mcg-salmeterol 50 1 inh inhalation R BID 06/26/23
mcg/dose blistr powdr for Lung/Breathing Issues
inhalation (Wixela Inhub)
glipizide 2.5 mg tablet 2.5 mg PO DAILY Diabetes 06/26/23
insulin aspart U-100 100 unit/mL 0 sliding scale dose SC ACHS 06/26/23
(3 mL) subcutaneous pen (Novolog Diabetes
FlexPen U-100 Insulin aspart)
ipratropium 0.5 mg-albuterol 3 mg 3 ml inhalation R TID 06/26/23
(2.5 mg base)/3 mL nebulization Lung/Breathing Issues
soln
lactulose 10 gram/15 mL oral 45 ml PO TID Liver Issues 06/26/23
solution
lisinopril 10 mg tablet 10 mg PO DAILY Blood Pressure 06/26/23
mirtazapine 15 mg tablet 15 mg PO HS PRN antidepressant 06/26/23
omeprazole 20 mg capsule,delayed 20 mg PO HSPRN PRN gerd 06/26/23
release
prazosin 5 mg capsule 5 mg PO HS Blood Pressure 06/26/23
prednisone 20 mg tablet 20 mg PO DAILY Liver Issues 06/26/23
spironolactone 100 mg tablet 100 mg PO DAILY Liver Issues 06/26/23
venlafaxine 75 mg tablet,extended 150 mg PO DAILY Depression 06/27/23
release 24 hr
Vital Signs and Labs
-
Vital Signs and Labs:
Vital Signs
Temp Pulse Resp BP Pulse Ox
36.8 C 97 18 147/83 100
06/27/23 11:19 06/27/23 11:19 06/27/23 11:19 06/27/23 11:19 06/27/23 11:19
Lab Results
06/27/23 06:47
06/27/23 06:47
PT 19.0 Sec (11.4-14.6) H 06/26/23 19:17
INR 1.62 06/26/23 19:17
Sodium 134 mmol/L (135-145) L 06/27/23 06:47
Potassium 4.1 mmol/L (3.5-5.1) 06/27/23 06:47
BUN 24 mg/dl (9-20) H 06/27/23 06:47
Glucose 145 mg/dl (70-99) H 06/27/23 06:47
Calcium 8.7 mg/dl (8.4-10.2) 06/27/23 06:47
Phosphorus 3.2 mg/dl (2.5-4.5) 06/26/23 23:47
Vitamin B12 > 1000 pg/ml (239-931) H 06/26/23 18:40
Home Medications
-
Home Medications
aripiprazole 5 mg tablet 5 mg PO HS Mental Health/Anxiety 06/26/23
ascorbic acid (vitamin C) 500 mg tablet (Vitamin C) 500 mg PO DAILY Supplement 06/26/23
diclofenac sodium 1 % topical gel 1 g topical DAILYPRN PRN apply to B/L knees 06/26/23
docusate sodium 100 mg capsule 100 mg PO BID Constipation 06/26/23
ferrous sulfate 325 mg (65 mg iron) tablet 325 mg PO DAILY Supplement 06/26/23
fluticasone 250 mcg-salmeterol 50 mcg/dose blistr powdr for inhalation (Wixela Inhub) 1 inh inhalation R BID Lung/Breathing Issues 06/26/23
glipizide 2.5 mg tablet 2.5 mg PO DAILY Diabetes 06/26/23
insulin aspart U-100 100 unit/mL (3 mL) subcutaneous pen (Novolog FlexPen U-100 Insulin aspart) 0 sliding scale dose SC ACHS Diabetes 06/26/23
ipratropium 0.5 mg-albuterol 3 mg (2.5 mg base)/3 mL nebulization soln 3 ml inhalation R TID Lung/Breathing Issues 06/26/23
lactulose 10 gram/15 mL oral solution 45 ml PO TID Liver Issues 06/26/23
lisinopril 10 mg tablet 10 mg PO DAILY Blood Pressure 06/26/23
mirtazapine 15 mg tablet 15 mg PO HS PRN antidepressant 06/26/23
omeprazole 20 mg capsule,delayed release 20 mg PO HSPRN PRN gerd 06/26/23
prazosin 5 mg capsule 5 mg PO HS Blood Pressure 06/26/23
prednisone 20 mg tablet 20 mg PO DAILY Liver Issues 06/26/23
spironolactone 100 mg tablet 100 mg PO DAILY Liver Issues 06/26/23
venlafaxine 75 mg tablet,extended release 24 hr 150 mg PO DAILY Depression 06/27/23
Medications
-
Medications:
Generic Name Dose Route Start Last Admin
Trade Name Freq PRN Reason Stop Dose Admin
Albuterol/Ipratropium 3 ml 06/27/23 08:00 06/27/23 08:22
Ipratropium 0.5/Albuterol 3 Mg (3 Ml Ampul) INH 07/25/23 07:59 3 ml
R TID SHIRA Administration
Protocol
Aripiprazole 5 mg 06/27/23 22:00
Aripiprazole 5 Mg Tablet PO 07/25/23 21:59
HS SHIRA
Dextrose 12.5 grams 06/26/23 23:31
Dextrose 50% (0.5 Grams/Ml) 50 Ml Syringe IV 07/24/23 23:30
[id number] PRN
hypoglycemia
Protocol
Docusate Sodium 100 mg 06/27/23 08:00 06/27/23 08:30
Docusate Sodium 100 Mg Capsule PO 07/25/23 07:59 100 mg
BID SHIRA Administration
Ferrous Sulfate 325 mg 06/27/23 08:00 06/27/23 08:30
Ferrous Sulfate 325 Mg Tablet PO 07/25/23 07:59 325 mg
DAILY SHIRA Administration
Folic Acid 1 mg 06/27/23 08:00 06/27/23 08:31
Folic Acid 1 Mg Tablet PO 07/25/23 07:59 1 mg
DAILY SHIRA Administration
Glucagon 1 mg 06/26/23 23:31
Glucagon 1 Mg Vial IM 07/24/23 23:30
PRN PRN
hypoglycemia
Protocol
Folic Acid 1 mg/ Sodium 50.2 mls @ 200.8 mls/hr 06/26/23 23:31
Chloride IV 07/24/23 23:30
DAILYPRN PRN
if NPO
Insulin Aspart 0 units 06/27/23 07:30 06/27/23 08:29
Insulin Aspart Moderate Resistance 300 Units/3 Ml Pen.Injctr SC 07/25/23 07:29 1 units
AC SHIRA Administration
Protocol
Lactulose 45 grams 06/27/23 08:00 06/27/23 08:31
Lactulose Solution (20 Grams/30 Ml) 30 Ml Cup PO 07/25/23 07:59 45 grams
TID SHIRA Administration
Lorazepam 1 mg 06/26/23 23:31
Lorazepam 1 Mg Tablet PO 07/24/23 23:30
Q2HPRN PRN
MSAS 5-7
Lorazepam 1 mg 06/26/23 23:31
Lorazepam 2 Mg/Ml Vial IV 07/24/23 23:30
Q1HPRN PRN
MSAS 8-11
Lorazepam 2 mg 06/26/23 23:31
Lorazepam 2 Mg/Ml Vial IV 07/24/23 23:30
Q1HPRN PRN
MSAS > 11
Mirtazapine 15 mg 06/26/23 23:31
Mirtazapine 15 Mg Regular Release Tablet PO 07/24/23 23:30
HS PRN
antidepressant
Pantoprazole Sodium 40 mg 06/26/23 23:31
Pantoprazole 40 Mg Delayed Release Tablet PO 07/24/23 23:30
HSPRN PRN
GERD
Prazosin HCl 5 mg 06/27/23 22:00
Prazosin 5 Mg Capsule PO 07/25/23 21:59
HS SHIRA
Prednisone 20 mg 06/27/23 08:00 06/27/23 08:31
Prednisone 20 Mg Tablet PO 07/25/23 07:59 20 mg
DAILY SHIRA Administration
Fluticasone/Salmeterol 2 puff 06/27/23 08:00 06/27/23 08:23
Advair Hfa 115/21 Inhaler INH 07/25/23 07:59 2 puff
R BID SHIRA Administration
Sodium Chloride 0 flush 06/26/23 23:00
Sodium Chloride 0.9% (Flush) Syringe IV 07/24/23 22:59
PER PROTOCOL SHIRA
Sodium Chloride 0 ml 06/26/23 23:31
Sodium Chloride 0.9% (Preservative Free) 10 Ml Vial IV 07/24/23 23:30
PRN PRN
To dilute IV Ativan
Protocol
Thiamine HCl 200 mg 06/27/23 00:00 06/27/23 08:30
Thiamine (100 Mg/Ml) 2 Ml Vial IV 06/29/23 16:01 200 mg
Q8 SHIRA Administration
Thiamine HCl 100 mg 06/30/23 08:00
Thiamine 100 Mg Tablet PO 07/28/23 07:59
BID SHIRA
Venlafaxine HCl 150 mg 06/27/23 08:30 06/27/23 08:30
Venlafaxine 150 Mg Extended Release Capsule PO 07/25/23 08:29 150 mg
DAILY SHIRA Administration
--- NOTE | 2023-06-27 11:53 | PTCARENOTE ---
Pt neuro status' When asked his name he stated over and over again '7 7' When i asked his name he stated 'terrible' several times. I again looked at his wrist band Id and said. Your name is... and stated his first name, he was then able to say both
his first and last name. I then asked him his day and he stated [birth year] but mumbled the year. I stated 1965 and he nodded. he was not able to tell me where he lives or where he was at. He was speaking in one word responses to me saying the same
thing but never an appropriate response. When i asked him yes or no questions, he was able to appropriately say yes or no. I asked are you in pain he said 'yes in my head.' When i asked where he said right but jestured to his left ear. Then i
said where is your pain and he said 'seven' I pressed on his belly and said does this hurt and he said'yes' and he guarded. During my neuro check i asked him to raise his eye brows. He raised his eye brows but would not release them until i
stated, ok relax your eyes. Same thing occured with every task i gave him. When i asked raise your arms he kept his arms up (no pronation) until i stated. To test this, I asked him to raise his arms and walked into the bathroom to empty his
urinal, his arms were stilled up in the air. his pupils 4 and brisk. expressive and possible receptive aphasia noted. When giving him his pills. He was unable to do the task. he was unsure on how to take the pills. he said what do i do. I said you
need to swollow your pills. he stated how. I said open your mouth. he then openend his mouth. I put pill on his tongue and then i said now you need to swollow. he swallowed BEFORE i even put the straw in his mouth. Then i attempted another pill
this time i structed to suck on the straw for water and he was able to complete the task. When breakfast came he did well with his eggs and moldovan toast. no mess noted. There was a bowl of cereal to the left of the main dish. I was standing in the
hallway to observe how he did. he attempted to pick up truck driver bowel of cereal, instead he picked up the main dish and took it to his mouth to drink the milk. At this point, i assisted the patient and helped him to eat his cereal. when asked to use his
spoon he was unable to do so, but when i put the spoon in his hand, he did and started but he spilled it eery where. I did help to feed him cereal. I spoke with nutrition to ensure he has more finger foods to preserve his independence. MD aware
of the above findings and testing ordered. HRR I++ with PVD looking BLE good pulses. ABD very large, distended hyperactive BS obese tender with guarding. Bed alarm on and call traylor in hand. Pt has made no attempts to get OOB without assistance
[2023-06-27 11:58] LABS: Glucose - Point of Care 304 mg/dl (70-99)
[2023-06-27 12:23] LABS: Ammonia 128 umol/L (9-30)
[2023-06-27 12:36] LABS: Creatine Phosphokinase 198 U/L (55-170)
[2023-06-27] MEDS: NOVOLOG FLEXPEN-MODERATE RESISTANCE 7 UNITS SC (13:56)
--- NOTE | 2023-06-27 14:31 | CM ---
sugar cane farm manager reviewed patient's chart and met with patient and patient was admitted from [facility] in [place] [phone] to [facility]. Patient has been at the [facility] for 34 days and plan is to complete 6 months.
Per Jonas patient's FIELD ADMINISTRATOR [phone] at [facility] in [place] patient is generally independent with adl's and ambulation, no dme, patient was living in [place], never but has parents that are still living there per Jonas.
Per Jonas patient has been clean and sober for 8 months with one relapse. Patient has a benefits appointment on 06/29, and if patient is still at [facility] she will need to be notified to reschedule the appointment.
[facility] Need to call [facility] at [phone] to make them aware that patient was admitted to [facility]
Plan; To follow up with Jonas the FIELD ADMINISTRATOR at [facility], who manages patient care.
--- NOTE | 2023-06-27 14:36 | PTCARENOTE ---
Ammonia level noted, Pt pale with large abdomen tender hyperactive BS, distended no fluid wave noted, stool pasty pale orange song large amount foul odor. Pt unaware that he moved his bowels . Pt had large amount of urine in diaper as well. Pt
needs to have a st cath for UA UDS, i encouraged pt to drink some fluid so i can do straigth cath shortly. PT now resting
--- NOTE | 2023-06-27 14:43 | PTCARENOTE ---
Pt had acute on set of jumping out of bed to stand to void. when he stands to void, he puts both hands in his diaper to cup the urine. He has two urinals at the bedside, brand new one on left and one on right. when we found him he was tangled in
his IV wrapped one ict account manager around his top of head. He was unable to tell me why he jumped out of bed. We did institute continuous video monitoring to assist with saftey. In addition, the FINE UNHAIRER and my self have instituted bi hourly rounding to asses
comfort, pain, need to deficate, void or to drink something in attempt to reduce jumping out of bed. Pt is currently resting in his bed with call traylor in hand.
--- NOTE | 2023-06-27 16:44 | CON.MD ---
Consultation - Medical
-
Pt seen/ chart reviewed; discussed with nursing staff.
Pt is a 57 year old white male who was brought to the ER by staff at the sober house where he lives. Unfortunately there is no psychiatric history available, and pt is unable to give a history. ER note stated that they were told pt had a recent
change in mental status.
Pt was calm but completely confused on exam. He could repeat his name, and then the number 238 as an answer to every other question. He was unable to speak even one coherent sentence. I asked him several basic questions, and he could not
comprehend my meaning. When I asked him to raise his arms he did not follow orders; when I demonstrated raising my arms he copied my motion.
Unable to obtain either history or full MSE at this time.
Of note pt's medications from home include Abilify 5, Effexor 150 and remeron 15- which would suggest diagnosis of depression.
My impression from the limited info available is a neurological disorder- most likely encephalopathy, unlikely a psychiatric disorder. MRI scheduled for tomorrow.
[2023-06-27 17:20] LABS: Glucose - Point of Care 432 mg/dl (70-99)
[2023-06-27] MEDS: ZOVIRAX INJECTION 270 MG IV (17:54)
[2023-06-27] MEDS: DUPHALAC/CHRONULAC PO (18:01)
[2023-06-27 18:23] LABS: Glucose 390 mg/dl (70-99)
[2023-06-27] MEDS: NOVOLOG FLEXPEN-MODERATE RESISTANCE 11 UNITS SC (18:31)
--- NOTE | 2023-06-27 19:48 | PTCARENOTE ---
accuchecks at diner time was unable to read. we did a stat gluocse. Trim Setter unable to draw due to patient resistance . We got assistance with another magazine grinder loader and i assisted to help keep him calm. They were able to draw blood glucose
and it resulted at 390. After docking the accumeter bs was found to be 432. I did cover him with 11 units as per protocol and notified the provisioning specialist MD . Report given to next Rn
[2023-06-27] MEDS: KEPPRA 500 MG IV (21:06)
[2023-06-27] MEDS: ABILIFY 5 MG PO (21:07)
[2023-06-27] MEDS: MINIPRESS 5 MG PO (21:11)
[2023-06-27 21:20] LABS: Glucose - Point of Care 214 mg/dl (70-99)
[2023-06-28] VITALS (7 sets, daily range): BP systolic 125–159; BP diastolic 68–84; BMI 29.4
[2023-06-28 06:20] LABS: % Basophils 0.5 % (0-2); % Eosinophils 4.6 % (0-6); % Immature Granulocytes 0.8 % (0-0.5); % Lymphocytes 33.8 % (20.5-51.1); % Monocytes 12.3 % (1.7-9.3); Absolute Eosinophils 0.2 10^3/uL (0-0.7); Absolute Lymphocytes 1.3 10^3/uL (1.2-3.4); Absolute Monocytes 0.5 10^3/uL (0.1-0.6); Absolute Neutrophils 1.9 10^3/uL (1.4-6.5); Hematocrit 26.7 % (39.0-52.0); Hemoglobin 9.9 g/dL (13.0-18.0); Mean Corp Hgb Conc. 37.1 g/dL (33.0-37.0); Mean Corpuscular Hgb 34.5 pg (27.0-31.0); Mean Platelet Volume 10.4 fL (7.4-10.4); Nucleated Red Blood Cells % 0 % (-); Platelet Count 50 10^3/uL (130-400); Red Blood Cell Count 2.87 10^6/uL (4.70-6.10); Red Cell Dist. Width 14.2 % (11.5-14.5); White Blood Cell Count 3.9 10^3/uL (4.8-10.8)
[2023-06-28 07:10] LABS: ALT (SGPT) 46 U/L (0-50); AST (SGOT) 39 U/L (17-59); Albumin 2.3 g/dl (3.5-5.0); Alkaline Phosphatase 84 U/L (38-126); Blood Urea Nitrogen 27 mg/dl (9-20); Carbon Dioxide 17 mmol/L (22-30); Chloride 109 mmol/L (98-107); Estimated Creatinine Clearance 66 ml/min; Glucose 269 mg/dl (70-99); Potassium 4.2 mmol/L (3.5-5.1); Sodium 134 mmol/L (135-145); Total Bilirubin 2.1 mg/dl (0.2-1.3); Total Protein 5.3 g/dl (6.3-8.2); eGFR 50.57
[2023-06-28 07:41] LABS: Ammonia 82 umol/L (9-30)
[2023-06-28] MEDS: DUONEB 3 ML INH ×3 (07:52→19:33)
[2023-06-28] MEDS: ADVAIR HFA 115/21 MCG INHALER 2 PUFF INH ×2 (07:52→19:33)
[2023-06-28] MEDS: COLACE 100 MG PO ×2 (07:56→19:53)
[2023-06-28] MEDS: EFFEXOR XR 150 MG PO (07:57)
[2023-06-28] MEDS: FOLVITE 1 MG PO (07:57)
[2023-06-28] MEDS: THIAMINE INJECTION 200 MG IV ×2 (07:57→17:37)
[2023-06-28] MEDS: FEOSOL 325 MG PO (07:57)
[2023-06-28] MEDS: DELTASONE 20 MG PO (07:57)
[2023-06-28 07:59] LABS: Glucose - Point of Care 265 mg/dl (70-99)
[2023-06-28] MEDS: DUPHALAC/CHRONULAC 45 GRAMS PO ×4 (08:02→21:03)
[2023-06-28] MEDS: NOVOLOG FLEXPEN-MODERATE RESISTANCE 5 UNITS SC ×2 (08:05→11:57)
[2023-06-28] MEDS: KEPPRA IV (08:21)
--- NOTE | 2023-06-28 08:27 | W.PN.NEURO.1 ---
Today's Communication / Plan
-
-Check routine EEG
-Continue IV thiamine
-Continue monitoring glucose and aiming for goal normoglycemia
-Not going to recommend antiseizure medications
-Minimize sedating medications
-Follow liver function
-Continue Lactulose
Will follow as needed call with questions and concerns
Neuro Assessment/Plan
Assessment
57-year-old male presenting with change in mental status, history of cirrhosis, alcohol abuse, hypertensio, diabetes
Blood glucose was in the 500s range
Elevated ammonia
Examination showed asterixis and tremor
Mental status examination was concerning for aphasia
MRI brain with and without contrast shows no acute abnormality no chronic stroke or acute stroke no masses or edema
Patient appears to be improving as did fairly well on language testing 06/28
Presumed toxic metabolic encephalopathy due to hyperglycemia and hyperammonemia
Subjective/Objective
Subjective Data
Date of Service: June 28, 2023
No acute events, discussed my thought that patient likely had some brain dysfunction from high ammonia and hyperglycemia
Objective Data
Vital Signs
Temp Pulse Resp BP Pulse Ox
98.2 F 88 18 133/70 97
06/28/23 07:49 06/28/23 07:54 06/28/23 07:54 06/28/23 07:49 06/28/23 07:54
Lab Results
06/28/23 06:09
06/28/23 06:09
PT 19.0 Sec (11.4-14.6) H 06/26/23 19:17
INR 1.62 06/26/23 19:17
Sodium 134 mmol/L (135-145) L 06/28/23 06:09
Potassium 4.2 mmol/L (3.5-5.1) 06/28/23 06:09
BUN 27 mg/dl (9-20) H 06/28/23 06:09
Glucose 269 mg/dl (70-99) H 06/28/23 06:09
Calcium 9.0 mg/dl (8.4-10.2) 06/28/23 06:09
Phosphorus 3.2 mg/dl (2.5-4.5) 06/26/23 23:47
Vitamin B12 > 1000 pg/ml (239-931) H 06/26/23 18:40
Patient Allergies
bee venom protein (honey bee) Allergy (Verified 06/26/23 18:07)
Unknown
Review of Systems
-
History Source: Patient
All other systems: Reviewed and negative
Constitutional: No Symptoms
EENT: No Symptoms Reported
Respiratory: No Symptoms
Cardiac: No Symptoms
Abdomen/GI: No Symptoms
Genitourinary: No Symptoms
Musculoskeletal: No Symptoms
Skin: No Symptoms
Neuro: Speech Problem
Endocrine: No Symptoms
Hematologic / Lymphatic: No Symptoms
Allergy / Immunology: No Symptoms
Physical Exam
-
General: Comfortable
Eyes: No Ptosis
HEENT: Normocephalic
Neck: No Bruits Bilaterally
Respiratory: Clear to Auscultation
Cardiac: Regular Rhythm
GI: Normal Bowel Sounds
Skin: Unremarkable
Extremities: No Clubbing
Psych: Confused; Negative Agitated
Extended Neurological Exam
Attention Span & Concentration: Awake, Alert, Interactive and Other (Names about 3 states of [place] within 60 seconds, cannot tell time on the clock properly, difficulty with naming months of the backwards showing some inattention and difficulty with
mild complexity tasks, wide awake and conversational, pleasant)
Memory: Reduced
Tremor: Asterixis and Distal
Involuntary Movement: Asterixis
Speech: Other (Names simple objects well, obeys 3 and 4 step commands, repeats well)
Cranial Nerve II: Left Eye: Pupillary Reactivity Unremarkable, Pupillary Size Unremarkable and Visual Robins Intact
Cranial Nerve II: Right Eye: Pupillary Reactivity Unremarkable, Pupillary Size Unremarkable and Visual Robins Intact
Cranial Nerves III, IV, : Extraocular Movement: Extraocular Movement Full in all Directions
Cranial Nerve XI: Shoulder Shrug: Unremarkable
Cranial Nerve XII: Tongue Protusion: Midline
Muscle Strength, Overall: Full Throughout
Muscle Bulk & Tone: Bulk Unremarkable
Pronator Drift: No Drift in Upper Extremities
Data Reviewed
-
CT Head: Report Reviewed and Image Reviewed
MRI Head: Report Reviewed and Image Reviewed
EEG: Ordered and Pending
[2023-06-28 09:51] LABS: Urine Albumin Negative (Neg - Trace); Urine Bilirubin Negative (Negative); Urine Character Clear (Clear); Urine Color Amber; Urine Glucose Trace (Negative); Urine Ketone Negative (Negative); Urine Leukocyte Negative (Negative); Urine Nitrite Negative (Negative); Urine Occult Blood Negative (Negative); Urine Urobilinogen 2+ (Neg - 1+)
--- NOTE | 2023-06-28 10:38 | EEG.RPT ---
Electroencephalogram Report
Recording
Date of EE06/28/23
Type of EEG: Routine
Length of EEG recordin minutes
Done with Video Recording: Yes
Patient Status: Inpatient
Recording Conditions: Awake and Drowsy
Hyperventilation Performed: No
Photic Stimulation Performed: Yes
Report
LOW THAN 1 HOUR EEG REPORT
EEG INTERPRETATION:
Moderately abnormal EEG for age in wakefulness through sleep due to diffuse bihemispheric slowing
CLINICAL CORRELATION:
This study was suggestive of diffuse cortical dysfunction without focal abnormality. No seizures were recorded.
Clinical correlation is advised.
METHODS:
A 21 channel digitized electroencephalogram (EEG) was performed at the bedside. The 10/20 international system of electrode placement was used with ECG and lateral/vertical eye movements recorded. Persyst quantitative EEG analysis was performed.
QUALITY OF STUDY:
Fair-good
ELECTROENCEPHALOGRAPHER IMPRESSION(S):
Background
Amplitude: Unremarkable
Anterior-Posterior Organization: Fair
Maximum: Theta
Asymmetry: None
Sleep
Drowsiness present
Photic Stimulation
Failed to activate the record
ECG
Normal sinus rhythm
[2023-06-28 10:40] LABS: Amphetamines Negative (Negative); Barbiturates Negative (Negative); Benzodiazepines Negative (Negative); Buprenorphine Negative (Negative); Cocaine Negative (Negative); Marijuana Negative (Negative); Methadone Negative (Negative); Methamphetamines Negative (Negative); Opiates Negative (Negative); Phencyclidine Negative (Negative); Tricyclic Antidepressants Negative (Negative)
[2023-06-28 11:45] LABS: Glucose - Point of Care 259 mg/dl (70-99)
--- NOTE | 2023-06-28 12:10 | W.PN.UPDATE ---
Update Note
Progress Note Update
Pt seen, chart reviewed. Pt lying in bed, sleeping soundly, not waking to verbal attempts to arouse him. Pt has elevated ammonia level, hx of alcoholic cirrhosis. Unable to obtain any further history regarding his psych med regimen/treatment.
Imp: TME, with lethargy
history of depression, details unavailable
Rec: continue current mgt
will continue to follow and assess when pt's mental state more clear
--- NOTE | 2023-06-28 16:13 | W.PN.HOSP.TC ---
Today's Communication/Plan
-
continue lactulose
continue supportive measures
stop msas/ativan
Assessment / Plan
Assessment / Plan
pt is a 57 year old male
Acute toxic metabolic encephalopathy
-CT head and MRI brain did not show any CVA
-Ammonia level with history of liver dysfunction question of hepatic encephalopathy, on lactulose therapy continue
-Patient had reported visual hallucination, neuro/psychiatric evaluation requested.
-UDS neg, alc neg. d/c ativan/MSAS
-EEG did not show any seizue activity
-avoid sedative medication, holding Remeron ,
Hx alcoholic cirrhosis with history of ascites
HX paracentesis X 1 in past unsure when
-low suspicion for SBP
-US no ascites
-stop rocephin
DM2 with acute hyperglycemia
-Hbga1c of 8.8, maintain on ISS.
ERIN versus CKD 3B
-no baseline labs available to compare with
-maintain on
-Hold Lisinopril 10 mg daily, hold spironolactone
Hyponatremia
- mild, monitor. TSH WNL
Chronic steroids use
-unclear reason, on prednisone 20mg/d
GERD
Anemia of chronic disease--iron, B12, folate all WNL�cont feosol
Thrombocytopenia likely secondary to alcoholic serum versus--plt low
Depression--�cont effexor
Restless leg syndrome--cont requip
DVT prophylaxis--SCDs
CODE STATUS -- FULL CODE
Anticipated Discharge: 24 - 48 hours
Subjective/Interval History
-
Date of Service: June 28, 2023
patient more awake and communicative today
Undergoing routine EEG
Objective Data
-
Labs:
Laboratory Results
06/28/23
06:09
WBC 3.9 L
Hgb 9.9 L
Hct 26.7 L
Plt Count 50 L
Sodium 134 L
Potassium 4.2
Chloride 109 H
Carbon Dioxide 17 L
BUN 27 H
Creatinine 1.6 H
Glucose 269 H
Calcium 9.0
Total Bilirubin 2.1 H
AST 39
ALT 46
Alkaline Phosphatase 84
Vital Signs:
Vital Signs
Temp Pulse Resp BP Pulse Ox
98.1 F 72 18 130/69 100
06/28/23 13:23 06/28/23 14:00 06/28/23 14:00 06/28/23 13:23 06/28/23 14:00
I&O
06/27/23 06/28/23 06/29/23
06:59 06:59 06:59
Intake Total 450 / 450 480 / 480
Balance 450 / 450 480 / 480
Review of Systems
-
Unable to obtain full review of systems at this time due to: Acuity
Physical Exam
-
General: No Apparent Distress
HEENT: Negative Oxygen
Respiratory: Clear to Auscultation; Negative Wheezes
Cardiac: Regular Rhythm and S1/S2; Negative Murmur
GI: Soft, Nontender and Nondistended
Musculoskeletal: No Edema
Neuro: Awake and Alert; Negative Oriented
Psych: Calm
[2023-06-28 17:07] LABS: Glucose - Point of Care 446 mg/dl (70-99)
[2023-06-28 17:47] LABS: Glucose 431 mg/dl (70-99)
[2023-06-28] MEDS: NOVOLOG FLEXPEN-MODERATE RESISTANCE 11 UNITS SC (17:48)
[2023-06-28] MEDS: NOVOLOG FLEXPEN 3 UNITS SC (17:53)
--- NOTE | 2023-06-28 18:05 | PTCARENOTE ---
When the tech took pt.'s blood sugar at 1630 the glucometer read RR High. When docked the glucose showed up as 446. The nurse put a stat blood glucose in. Result showed 431. Protocol followed pt. giving 3 unit standing scale and 11 units sliding
scale.
[2023-06-28] MEDS: ABILIFY 5 MG PO (21:03)
[2023-06-28] MEDS: MINIPRESS 5 MG PO (21:04)
[2023-06-28 21:56] LABS: Glucose - Point of Care 341 mg/dl (70-99)
[2023-06-29] VITALS (8 sets, daily range): BP systolic 137–159; BP diastolic 70–85; PULSE 87
[2023-06-29] MEDS: THIAMINE INJECTION 200 MG IV ×3 (00:41→15:55)
--- NOTE | 2023-06-29 04:36 | PTCARENOTE ---
Pt with large incontinent episode of stool/urine overnight. PCT reports pt found using chewing tobacco. Patient belonging searched and chewing tobacco placed in med bin on nurse cart. Pt aware.
[2023-06-29 06:51] LABS: % Basophils 0.3 % (0-2); % Eosinophils 5.5 % (0-6); % Monocytes 10.6 % (1.7-9.3); % Neutrophils 52.6 % (42.2-75.2); Absolute Eosinophils 0.2 10^3/uL (0-0.7); Absolute Lymphocytes 0.9 10^3/uL (1.2-3.4); Absolute Monocytes 0.3 10^3/uL (0.1-0.6); Absolute Neutrophils 1.6 10^3/uL (1.4-6.5); Hemoglobin 9.8 g/dL (13.0-18.0); Mean Corp Hgb Conc. 37.7 g/dL (33.0-37.0); Mean Corpuscular Hgb 35.6 pg (27.0-31.0); Mean Corpuscular Volume 94.5 fL (80.0-94.0); Mean Platelet Volume 11.4 fL (7.4-10.4); Nucleated Red Blood Cells % 0 % (-); Platelet Count 41 10^3/uL (130-400); Red Blood Cell Count 2.75 10^6/uL (4.70-6.10); White Blood Cell Count 3.1 10^3/uL (4.8-10.8)
[2023-06-29 06:57] LABS: ALT (SGPT) 54 U/L (0-50); AST (SGOT) 44 U/L (17-59); Albumin 2.5 g/dl (3.5-5.0); Alkaline Phosphatase 101 U/L (38-126); Blood Urea Nitrogen 24 mg/dl (9-20); Calcium 8.3 mg/dl (8.4-10.2); Carbon Dioxide 17 mmol/L (22-30); Chloride 107 mmol/L (98-107); Estimated Creatinine Clearance 70 ml/min; Glucose 294 mg/dl (70-99); Potassium 3.8 mmol/L (3.5-5.1); Sodium 129 mmol/L (135-145); Total Bilirubin 1.6 mg/dl (0.2-1.3); Total Protein 5.5 g/dl (6.3-8.2); eGFR 54.64
[2023-06-29 07:15] LABS: Glucose - Point of Care 292 mg/dl (70-99)
[2023-06-29] MEDS: ADVAIR HFA 115/21 MCG INHALER 2 PUFF INH ×2 (07:39→19:24)
[2023-06-29] MEDS: DUONEB 3 ML INH ×3 (07:39→19:24)
[2023-06-29] MEDS: NOVOLOG FLEXPEN-MODERATE RESISTANCE 5 UNITS SC (07:45)
[2023-06-29] MEDS: EFFEXOR XR 150 MG PO (07:45)
[2023-06-29] MEDS: NOVOLOG FLEXPEN 3 UNITS SC (07:46)
[2023-06-29] MEDS: COLACE 100 MG PO ×2 (07:47→20:08)
[2023-06-29] MEDS: DELTASONE 20 MG PO (07:47)
[2023-06-29] MEDS: FOLVITE 1 MG PO (07:47)
[2023-06-29] MEDS: FEOSOL 325 MG PO (07:47)
[2023-06-29] MEDS: DUPHALAC/CHRONULAC 45 GRAMS PO ×2 (09:07→12:13)
--- NOTE | 2023-06-29 10:30 | W.PN.UPDATE ---
Update Note
Progress Note Update
Patient seen at bedside, chart reviewed, discussed with staff. Mr. Mccormack is more awake and alert this AM.Still confused as to how he got to the hospital and what for. he was able to tell me he had a cold and was having a hard time recovering from
this, he was having difficulty breathing and was recently started on steroids (possibly a factor in initial presentation). He was also able to share that he was started on mediations for depression around the time he became sober (although his
timeline was difficult to recall). He feels the medications have been helpful. He was seeing a psychiatrist in [place]? and was [facility] while here in [place]. Remeron has been held for
lethargy. Today he is awake, alert, and oriented but with some continued confusion. He was cooperative and pleasant. Sleep reported as good overnight. No other issues or concerns at this time.
Impression/Plan:� TME with lethargy, elevated ammonia - improving; history of depression - continue with Effexor and Abilify, could resume Remeron once stabilized. To follow with OP psych on DC.
--- NOTE | 2023-06-29 10:36 | PN.DE.MGMTRT ---
Insulin Management
- -
06/29/2023 Diabetes Management Consult
Patient admitted from sober living facility with blood sugar problem. PMH of alcoholic cirrhosis with ascites, HTN, type 2 diabetes. Prior to admission was on novolog ss only. CRIME SCENE SPECIALIST from facility reported to pharmacist here that patient has huge
appetite and she was going to start lantus but was admitted here before first dose.
A1C on admission 8.8%, cr 1.5, egfr 54.64.
Glucose range 159 to 446.
Will start lantus 15 units @ hs and increase AC novolog to 5 units with corrective insulin.
Will follow.
Diabetes History
- -
Type of Diabetes: 2
Pre-Admission Diabetes Regimen
06/29/23
06:01
Creatinine 1.5 H
Lab Results
Hemoglobin A1c 8.8 % (4.0-5.6) H 06/27/23 06:47
Insulin Pump Settings
IP Diabetes Regimen
06/28/23 06/28/23 06/28/23
11:43 17:03 17:22
Glucose 431 H
POC Glucose 259 H 446 H
06/28/23 06/29/23 06/29/23
21:54 06:01 07:13
Glucose 294 H
POC Glucose 341 H 292 H
Patient Education
[2023-06-29 11:58] LABS: Glucose - Point of Care 363 mg/dl (70-99)
[2023-06-29] MEDS: NOVOLOG FLEXPEN-MODERATE RESISTANCE 9 UNITS SC ×2 (12:14→17:07)
[2023-06-29] MEDS: NOVOLOG FLEXPEN 6 UNITS SC ×2 (12:14→17:06)
--- NOTE | 2023-06-29 12:14 | PN.CDI ---
CDI
- -
CDI:
Physician Documentation Request
Admit Date: 06/26/23 22:52
Dear Doctor Tobi,
Please review the following and provide your response in the progress notes.
Clinical Indicators:
Pt admitted with Acute toxic metabolic encephalopathy/ Visual hallucinations
Progress note 06/28, ' ...-Ammonia level with history of liver dysfunction question of hepatic encephalopathy...'
Being treated with 45G QID / Ammonia levels 66, 128, 82
Clarify which of the following accurately represents the suspected acuity of the ( Hepatic Encephalopathy) :
Acute
Acute on Chronic
Chronic
Other
Use of terms such as suspected, likely, concern for, or probable (associated with a specific diagnosis that is being evaluated, monitored, or treated as if it exists) are acceptable and can be coded in the inpatient setting, when documented at the
time of discharge.
Thank you,
Nasra Barlow RN
CDI Specialist
[place] [facility]
Please use your independent medical judgment in providing your response.
--- NOTE | 2023-06-29 15:01 | W.PN.HOSP.TC ---
Today's Communication/Plan
-
BG control
continue lactulose
discharge tomorrow
Assessment / Plan
Assessment / Plan
pt is a 57 year old male
Acute toxic metabolic encephalopathy - Improved
-CT head and MRI brain did not show any CVA
-Ammonia level with history of liver dysfunction question of hepatic encephalopathy, on lactulose therapy continue
-Patient had reported visual hallucination, neuro/psychiatric evaluation requested.
-UDS neg, alc neg. d/c ativan/MSAS
-EEG did not show any seizue activity
-avoid sedative medication, holding Remeron ,
Hx alcoholic cirrhosis with history of ascites
HX paracentesis X 1 in past unsure when
-low suspicion for SBP
-US no ascites
-stop rocephin
DM2 with acute hyperglycemia
-Hbga1c of 8.8
-Diabetic CALL CENTER ASSOCIATE involved and patient insulin adjusted.
Presumed CKD 3B
-no baseline labs available to compare with
-maintain on
-Hold Lisinopril 10 mg daily, hold spironolactone
Hyponatremia
- mild, monitor. TSH WNL
Chronic steroids use
-unclear reason, on prednisone 20mg/d
GERD
Anemia of chronic disease--iron, B12, folate all WNL�cont feosol
Thrombocytopenia likely secondary to alcoholic serum versus--plt low
Depression--�cont effexor
Restless leg syndrome--cont requip
DVT prophylaxis--SCDs
CODE STATUS -- FULL CODE
Anticipated Discharge: Within 24 hours
Subjective/Interval History
-
Date of Service: June 29, 2023
mentation much better and patient coherent, have some slowness of thoughts
no other reported problems
Objective Data
-
Labs:
Laboratory Results
06/29/23
06:01
WBC 3.1 L
Hgb 9.8 L
Hct 26.0 L
Plt Count 41 L
Sodium 129 L
Potassium 3.8
Chloride 107
Carbon Dioxide 17 L
BUN 24 H
Creatinine 1.5 H
Glucose 294 H
Calcium 8.3 L
Total Bilirubin 1.6 H
AST 44
ALT 54 H
Alkaline Phosphatase 101
Vital Signs:
Vital Signs
Temp Pulse Resp BP Pulse Ox
97.3 F 91 16 159/78 99
06/29/23 11:22 06/29/23 13:55 06/29/23 13:55 06/29/23 11:22 06/29/23 13:55
I&O
06/28/23 06/29/23 06/30/23
06:59 06:59 06:59
Intake Total 480 / 480 4320 / 4320
Output Total 400 / 400
Balance 480 / 480 3920 / 3920
Review of Systems
-
Respiratory: Reports No Symptoms
Cardiac: Reports No Symptoms
Abdomen/GI: Reports No Symptoms
Physical Exam
-
General: No Apparent Distress
HEENT: Negative Oxygen
Respiratory: Clear to Auscultation; Negative Wheezes
Cardiac: Regular Rhythm and S1/S2; Negative Murmur
Musculoskeletal: No Edema
Neuro: Awake and Alert; Negative Oriented
Psych: Calm
--- NOTE | 2023-06-29 15:53 | CM ---
Received notification from attending that patient may be medically cleared for d/c tomorrow. [facility] and got a Notification # of [id number] after speaking to Jelly. She stated that all bills and
medical records should be faxed to: [facility] office of finance [id number] [place], [place].
Plan: Case management will continue to follow and assist with discharge planning. Patient may be medically stable for discharge tomorrow.
[2023-06-29] MEDS: SODIUM BICARBONATE 1300 MG PO ×2 (15:54→22:43)
[2023-06-29 16:31] LABS: Glucose - Point of Care 448 mg/dl (70-99)
[2023-06-29 17:00] LABS: Glucose 384 mg/dl (70-99)
[2023-06-29] MEDS: DUPHALAC/CHRONULAC PO ×2 (17:33→22:44)
[2023-06-29 22:00] LABS: Glucose - Point of Care 174 mg/dl (70-99)
[2023-06-29] MEDS: LANTUS 0.149999999999999994 UNITS SC (22:41)
[2023-06-29] MEDS: ABILIFY 5 MG PO (22:42)
[2023-06-29] MEDS: MINIPRESS 5 MG PO (22:42)
[2023-06-30] VITALS (7 sets, daily range): BP systolic 124–166; BP diastolic 75–88; PULSE 86; O2SAT 100
--- NOTE | 2023-06-30 04:39 | DOWNTIME ---
There was a [employer] Solutions Consultant Downtime on 06/30/2023 from 0111 to 06/30/2023 at 0405. Downtime documentation of patient's care, including medication administrations, has been reconciled in the electronic record per guidelines. Refer to the
patient's paper chart under the miscellaneous tab to see printed paper medication records and downtime forms.
[2023-06-30] MEDS: DUONEB 3 ML INH ×3 (07:29→20:10)
[2023-06-30] MEDS: ADVAIR HFA 115/21 MCG INHALER 2 PUFF INH ×2 (07:29→20:10)
[2023-06-30 08:01] LABS: Glucose - Point of Care 160 mg/dl (70-99)
[2023-06-30] MEDS: DUPHALAC/CHRONULAC 45 GRAMS PO ×3 (08:23→22:03)
[2023-06-30] MEDS: COLACE 100 MG PO ×2 (08:24→20:17)
[2023-06-30] MEDS: NOVOLOG FLEXPEN 10 UNITS SC ×3 (08:24→16:55)
[2023-06-30] MEDS: SODIUM BICARBONATE 1300 MG PO ×3 (08:24→22:03)
[2023-06-30] MEDS: DELTASONE 20 MG PO (08:24)
[2023-06-30] MEDS: FEOSOL 325 MG PO (08:24)
[2023-06-30] MEDS: VITAMIN B1 100 MG PO ×2 (08:24→20:17)
[2023-06-30] MEDS: FOLVITE 1 MG PO (08:24)
[2023-06-30] MEDS: EFFEXOR XR 150 MG PO (08:24)
[2023-06-30] MEDS: NOVOLOG FLEXPEN-MODERATE RESISTANCE 1 UNITS SC ×2 (08:25→11:40)
--- NOTE | 2023-06-30 10:58 | W.PN.UPDATE ---
Update Note
Progress Note Update
patient seen chart reviewed. discussed w dr kumar. the patient is a 57 yr old admitted for change in mental status. he is currently much improved and was able to converse very reasonably with me about the reasons for admission. he has hx of
alcoholism and is residing in a sober house currently. since coming to alcoholic cirrhosis w notably high ammonia, diabetes, uri sx all noted and are being treated. he remains however w glucose of 384 today sodium of 129 and cr of 1.5 as
well as anemia w hgb of 9.8 and macrocytic indices.(b12 folate are normal). the sodium is particulary relevant to psych among other medical issues given that he takes effexor. we discussed lowering the effexor to 112. 5 as stopping it abruptly can
cause wd sx. abilify less common but still can contribute to low sodium and it is not so clear he could not do w a lower dose and it has been decreased to 2 mg. explained to him the risk of TD w antipsychotics. mental status vill[facility] mr aranda looks
good. would follow sodium if it does not normalize or continues to fall would consider alternative antidep eg remeron or wellbutrin which can still cause hyponatremia but less likely. he told me of his odyssey to get rx for his med/psych issues. [place] [facility] will follow
[2023-06-30 11:37] LABS: Glucose - Point of Care 198 mg/dl (70-99)
--- NOTE | 2023-06-30 13:19 | PN.DE.MGMTRT ---
Insulin Management
- -
06/29/2023 Diabetes Management Consult
Patient admitted from sober living facility with blood sugar problem. PMH of alcoholic cirrhosis with ascites, HTN, type 2 diabetes. Prior to admission was on novolog ss only. TREE FARMER from facility reported to pharmacist here that patient has huge
appetite and she was going to start lantus but was admitted here before first dose.
A1C on admission 8.8%, cr 1.5, egfr 54.64.
Glucose range 159 to 446.
Will start lantus 15 units @ hs and increase AC novolog to 5 units with corrective insulin.
Will follow.
06/30/2023 Diabetes Management Follow up
Lantus started @ hs 15 units last hs., fasting glucose this AM 174. Will increase hs lantus to 17 units. Pre meal glucose as high as 448 yesterday with 6 units novolog AC. Will increase AC novolog to 10 units. Will follow.
Diabetes History
- -
Type of Diabetes: 2
Pre-Admission Diabetes Regimen
Lab Results
Hemoglobin A1c 8.8 % (4.0-5.6) H 06/27/23 06:47
Insulin Pump Settings
IP Diabetes Regimen
06/29/23 06/29/23 06/29/23
16:30 16:39 21:58
Glucose 384 H
POC Glucose 448 H 174 H
06/30/23 06/30/23
08:00 11:35
Glucose
POC Glucose 160 H 198 H
Patient Education
--- NOTE | 2023-06-30 14:38 | W.PN.HOSP.TC ---
Today's Communication/Plan
-
BG control
check BMP in AM
possible discharge tomorrow if BG better controlled
Assessment / Plan
Assessment / Plan
Acute toxic metabolic encephalopathy - Improved
-CT head and MRI brain did not show any CVA
-Ammonia level with history of liver dysfunction question of hepatic encephalopathy, on lactulose therapy continue
-Patient had reported visual hallucination, neuro/psychiatric evaluation requested.
-UDS neg, alc neg. d/c ativan/MSAS
-EEG did not show any seizue activity
-avoid sedative medication, holding Remeron ,
Hx alcoholic cirrhosis with history of ascites
HX paracentesis X 1 in past unsure when
-low suspicion for SBP
-US no ascites
-stop rocephin
DM2 with acute hyperglycemia
-Hbga1c of 8.8
-Blood glucose remains significantly uncontrolled, Premeal insulin dose increased to 10 units AC. Diabetic SENIOR ACCOUNT EXECUTIVE help appreciated.
Presumed CKD 3B
-no baseline labs available to compare with
-maintain on
-Hold Lisinopril 10 mg daily, hold spironolactone
Hyponatremia
-Likely from ADH excess with underlying liver issues. TSH within normal limit
-Discussed with patient if continues to trend down, will require to restrict fluid intake.
Chronic steroids use
-unclear reason, on prednisone 20mg/d
GERD
Anemia of chronic disease--iron, B12, folate all WNL�cont feosol
Thrombocytopenia likely secondary to alcoholic serum versus--plt low
Depression--�cont effexor
Restless leg syndrome--cont requip
DVT prophylaxis--SCDs
CODE STATUS -- FULL CODE
Anticipated Discharge: Within 24 hours
Subjective/Interval History
-
Date of Service: June 30, 2023
Mentation remains clear
no other issues .
Objective Data
-
Vital Signs:
Vital Signs
Temp Pulse Resp BP Pulse Ox
97.5 F 74 18 150/80 100
06/30/23 11:00 06/30/23 13:37 06/30/23 13:37 06/30/23 11:00 06/30/23 13:37
I&O
06/29/23 06/30/23 07/01/23
06:59 06:59 06:59
Intake Total 4320 / 4320 2039
Output Total 400 / 400
Balance 3920 / 3920 2039
Review of Systems
-
All other systems: Reviewed and negative
Physical Exam
-
General: No Apparent Distress
HEENT: Negative Oxygen
Respiratory: Clear to Auscultation; Negative Wheezes
Cardiac: Regular Rhythm and S1/S2; Negative Murmur
Musculoskeletal: No Edema
Neuro: Awake and Alert; Negative Oriented
Psych: Calm
[2023-06-30] MEDS: NOVOLOG FLEXPEN-MODERATE RESISTANCE SC (16:38)
[2023-06-30 16:53] LABS: Glucose - Point of Care 341 mg/dl (70-99)
[2023-06-30] MEDS: NOVOLOG FLEXPEN-MODERATE RESISTANCE 7 UNITS SC (16:54)
[2023-06-30] MEDS: DUPHALAC/CHRONULAC PO (17:46)
[2023-06-30 21:22] LABS: Glucose - Point of Care 126 mg/dl (70-99)
[2023-06-30] MEDS: ABILIFY 2 MG PO (22:04)
[2023-06-30] MEDS: MINIPRESS 5 MG PO (22:04)
[2023-06-30] MEDS: LANTUS 0.170000000000000012 UNITS SC (22:07)
[2023-07-01 03:02] VITALS: BP 130/74
[2023-07-01 06:53] LABS: Hematocrit 24.7 % (39.0-52.0); Hemoglobin 9.1 g/dL (13.0-18.0); Mean Corp Hgb Conc. 36.8 g/dL (33.0-37.0); Mean Corpuscular Hgb 33.7 pg (27.0-31.0); Mean Corpuscular Volume 91.5 fL (80.0-94.0); Mean Platelet Volume 10.7 fL (7.4-10.4); Platelet Count 37 10^3/uL (130-400); Red Cell Dist. Width 14.3 % (11.5-14.5); White Blood Cell Count 3.8 10^3/uL (4.8-10.8)
[2023-07-01 07:00] VITALS: BP 138/74
[2023-07-01 07:13] LABS: Blood Urea Nitrogen 19 mg/dl (9-20); Calcium 8.2 mg/dl (8.4-10.2); Carbon Dioxide 18 mmol/L (22-30); Chloride 109 mmol/L (98-107); Estimated Creatinine Clearance 75 ml/min; Glucose 152 mg/dl (70-99); Potassium 3.7 mmol/L (3.5-5.1); Sodium 130 mmol/L (135-145); eGFR 59.36
[2023-07-01] MEDS: ADVAIR HFA 115/21 MCG INHALER 2 PUFF INH (07:15)
[2023-07-01] MEDS: DUONEB 3 ML INH (07:15)
--- NOTE | 2023-07-01 07:34 | PN.DE.MGMTRT ---
Insulin Management
- -
06/29/2023 Diabetes Management Consult
Patient admitted from sober living facility with blood sugar problem. PMH of alcoholic cirrhosis with ascites, HTN, type 2 diabetes. Prior to admission was on novolog ss only. PEOPLESOFT HR DEVELOPER from facility reported to pharmacist here that patient has huge
appetite and she was going to start lantus but was admitted here before first dose.
A1C on admission 8.8%, cr 1.5, egfr 54.64.
Glucose range 159 to 446.
Will start lantus 15 units @ hs and increase AC novolog to 5 units with corrective insulin.
Will follow.
06/30/2023 Diabetes Management Follow up
Lantus started @ hs 15 units last hs., fasting glucose this AM 174. Will increase hs lantus to 17 units. Pre meal glucose as high as 448 yesterday with 6 units novolog AC. Will increase AC novolog to 10 units. Will follow.
07/01/2023 Diabetes Management Follow up
Lantus increased to 17 units @ HS, fasting glucose this AM 152, will continue 17 units lantus @ HS. Pre meal novolog increased to 10 units, required 7 units corrective insulin with dinner. Will increase AC novolog to 12 units. Will provide and
instruct on glucose monitor.
Diabetes History
- -
Type of Diabetes: 2
Pre-Admission Diabetes Regimen
07/01/23
06:15
Creatinine 1.4 H
Lab Results
Hemoglobin A1c 8.8 % (4.0-5.6) H 06/27/23 06:47
Insulin Pump Settings
IP Diabetes Regimen
06/30/23 06/30/23 06/30/23
08:00 11:35 16:50
Glucose
POC Glucose 160 H 198 H 341 H
06/30/23 07/01/23
21:20 06:15
Glucose 152 H
POC Glucose 126 H
Meal type: Lunch
Meal type: Breakfast
Amount consumed: 100%
Amount consumed: 100%
Patient Education
[2023-07-01 07:49] LABS: Glucose - Point of Care 192 mg/dl (70-99)
[2023-07-01] MEDS: NOVOLOG FLEXPEN-MODERATE RESISTANCE 1 UNITS SC (07:55)
[2023-07-01] MEDS: NOVOLOG FLEXPEN 12 UNITS SC ×3 (07:55→16:39)
[2023-07-01] MEDS: SODIUM BICARBONATE 1300 MG PO ×2 (07:59→16:38)
[2023-07-01] MEDS: VITAMIN B1 100 MG PO (07:59)
[2023-07-01] MEDS: COLACE 100 MG PO (07:59)
[2023-07-01] MEDS: FOLVITE 1 MG PO (08:00)
[2023-07-01] MEDS: EFFEXOR XR 75 MG PO (08:00)
[2023-07-01] MEDS: EFFEXOR XR 37.5 MG PO (08:00)
[2023-07-01] MEDS: FEOSOL 325 MG PO (08:01)
[2023-07-01] MEDS: DELTASONE 20 MG PO (08:01)
[2023-07-01] MEDS: DUPHALAC/CHRONULAC 45 GRAMS PO ×2 (08:01→13:16)
[2023-07-01] MEDS: NOVOLOG FLEXPEN SC (08:18)
--- NOTE | 2023-07-01 10:47 | W.PN.UPDATE ---
Update Note
Progress Note Update
patient seen chart reviewed. spoke with nursing and with dr kumar. patient continues to improve both physically and mentally. blood sugar is better. serum sodium still on the low side at 130 and will need to be monitored and a decision made in the
future as to whether effexor should be continued or switched to an antidep less likely to reduce sodium. the patient remains anemic. he is aware of these issues and the need to followup. we also talked about the importance of diet and exercise. he
is aware of the concept of the glycemic index.he knows he needs to make some changes eg. patient admits he was drinking 'sweet tea' despite knowing it could raise blood sugar and will now do unsweetened tea. patient likely to leave in the next 24
hours. psych will sign off. he will follow up with the [facility] for psych
[2023-07-01 12:00] LABS: Glucose - Point of Care 148 mg/dl (70-99)
[2023-07-01 12:02] VITALS: BP 144/81; PULSE 97; O2SAT 97
--- NOTE | 2023-07-01 12:10 | PTOTSP ---
PATIENT FUNCTIONING INDEPENDENTLY ON LEVEL SURFACES WELL ELEVATIONS. ENCOURAGED PATIENT TO AMBULATE IN HALLS- RN AND PCT AWARE. WILL DISCHARGE FROM P.T. SERVICES.
--- NOTE | 2023-07-01 12:42 | PN.CDI ---
CDI
- -
CDI:
Physician Documentation Request
Admit Date: 06/26/23 22:52
Dear Doctor Tobi,
Please review the following and provide your response in the progress notes.
Clinical Indicators:
Pt admitted with ERIN/Hyponatremia /TME/Hepatic encephalopathy
Documented in the record, ' Anemia of chronic disease-...Thrombocytopenia likely secondary to alcoholic serum versus--plt low.'
Trended labs below
06/28/23 06/29/23 07/01/23
06:09 06:01 06:15
WBC 3.9 L 3.1 L 3.8L
Hgb 9.9 L 9.8 L 9.1L
Hct 26.7 L 26.0 L 24.7 L
Plt Count 50 L 41 L 37 L
Please provide a diagnosis for the above lab abnormalities:
Pancytopenia
Anemia of chronic disease/Thrombocytopenia only
Other
Use of terms such as suspected, likely, concern for, or probable (associated with a specific diagnosis that is being evaluated, monitored, or treated as if it exists) are acceptable and can be coded in the inpatient setting, when documented at the
time of discharge.
Thank you,
Nasra Barlow RN
CDI Specialist
[place] [facility]
Please use your independent medical judgment in providing your response.
--- NOTE | 2023-07-01 12:45 | W.PN.HOSP.TC ---
Addendum entered and electronically signed by Jason Britton MD 07/02/23 09:15:
Acute hepatic encephalopathy only - no chronic component - mentation normalized completely
Addendum entered and electronically signed by Jason Britton MD 07/01/23 15:40:
Add on to diagnosis list
Pancytopenia - mild, continue monitor
Original Note:
Today's Communication/Plan
-
d/c home
Assessment / Plan
Assessment / Plan
Acute toxic metabolic encephalopathy - Improved
-CT head and MRI brain did not show any CVA
-Ammonia level with history of liver dysfunction question of hepatic encephalopathy, on lactulose therapy continue
-Patient had reported visual hallucination, neuro/psychiatric evaluation requested.
-UDS neg, alc neg. d/c ativan/MSAS
-EEG did not show any seizure activity
-Psychiatry evaluated and dose of venlafaxine and Abilify decreased.
Hx alcoholic cirrhosis with history of ascites
HX paracentesis X 1 in past unsure when
-low suspicion for SBP
-US no ascites
-stop rocephin
DM2 with acute hyperglycemia
-Hbga1c of 8.8
-Steroid discontinued and will help better control blood glucose
-Patient being discharged on Basaglar 17 units at bedtime, NovoLog 12 unit AC with sliding scale. Contour glucometer/strips/lancets/needle prescription provided.
Presumed CKD 3B
-no baseline labs available to compare with
-maintain on
-Resume lisinopril 10 and decrease spironolactone to 50 mg daily.
Hyponatremia
-Likely from ADH excess with underlying liver issues. TSH within normal limit
-Discussed with patient if continues to trend down, will require to restrict fluid intake to 40 0z.
Not on chronic steroids - discontinued predinsoine, patient was provided prescription of tapering course of steroids for upper respiratory tract infection by PCP office.
GERD
Anemia of chronic disease--iron, B12, folate all WNL�cont feosol
Thrombocytopenia likely secondary to alcoholic serum versus--plt low
Depression--�cont effexor
Restless leg syndrome--cont requip
DVT prophylaxis--SCDs
CODE STATUS -- FULL CODE
More than 30 minutes spent in discharge including
Final examination of the patient
Summarizing hospital stay
Instructions for continuing care to all relevant caregivers
Preparation of discharge records, prescriptions, and referral forms
Total time spent (in minutes): 40mins
Anticipated Discharge: Today
Subjective/Interval History
-
Date of Service: July 01, 2023
No reported issues overnight
Resting comfortably in bed
Objective Data
-
Labs:
Laboratory Results
07/01/23
06:15
WBC 3.8 L
Hgb 9.1 L
Hct 24.7 L
Plt Count 37 L
Sodium 130 L
Potassium 3.7
Chloride 109 H
Carbon Dioxide 18 L
BUN 19
Creatinine 1.4 H
Glucose 152 H
Calcium 8.2 L
Vital Signs:
Vital Signs
Temp Pulse Resp BP Pulse Ox
98.3 F 87 16 138/74 98
07/01/23 07:00 07/01/23 07:17 07/01/23 07:17 07/01/23 07:00 07/01/23 11:14
I&O
06/30/23 07/01/23 07/02/23
06:59 06:59 06:59
Intake Total 2039 1200 / 1200
Balance 2039 1200 / 1200
Review of Systems
-
All other systems: Reviewed and negative
Physical Exam
-
General: No Apparent Distress
HEENT: Negative Oxygen
Respiratory: Clear to Auscultation; Negative Wheezes
Cardiac: Regular Rhythm and S1/S2; Negative Murmur
Musculoskeletal: No Edema
Neuro: Awake and Alert; Negative Oriented
Psych: Calm
[2023-07-01] MEDS: NOVOLOG FLEXPEN-MODERATE RESISTANCE SC ×2 (13:09→16:40)
[2023-07-01] MEDS: FLUZONE QUAD 2023-2024 SYRINGE 0.5 ML IM (13:17)
--- NOTE | 2023-07-01 15:07 | CM ---
Addendum entered by NADYA Sykes 07/01/23 17:09:
Received TT from RN that patient is unable to get through to his ride. Placed a call to patient's room and he stated that he has it taken care of and has the number to someone who can come get him. Spoke with RN who stated that he had success
calling the intermediate and confirmed someone is coming to get patient.
Original Note:
Patient was made aware that [facility] to [facility]. He was appreciative.
Plan: Case management will continue to follow and assist with discharge planning. Patient is discharged and going home.
[2023-07-01] MEDS: DUONEB INH (15:38)
[2023-07-01 16:36] LABS: Glucose - Point of Care 142 mg/dl (70-99)
--- NOTE | 2023-07-01 17:47 | PTCARENOTE ---
Pt discharged. Medication instructions reviewed with patient. Patient demonstrated understanding by reading standing and sliding scale orders for Novolog and administering to self for dinner. [facility] notified of discharge and sent
transport for pickup.
--- NOTE | 2023-07-01 18:17 | W.DCSUMMARY ---
Discharge Summary
Discharge Data
Date of Admission: 06/26/23
Date of Discharge: 07/01/23
-
Pending Results: No
Hospital Course
Discharging Physician : Dr Jason Britton
Disposition : To home
Primary care physician : None
Principal Discharge diagnosis :
Acute hepatic encephalopathy
Hyperglycemia with insulin-dependent diabetes mellitus
Chronic hyponatremia
Chronic Discharge diagnosis :
History of alcoholic cirrhosis
History of ascites
Chronic kidney disease stage IIIb
gastroesophageal flux disease
Anemia of chronic disease
Thrombocytopenia
Depression
Restless leg syndrome
History of Hospital Course :
Patient is a 57-year-old male with above medical history came to ER with new onset of hypoglycemia and confusion. Patient has a history of previous alcohol use and lives in sober home/independent apartment. Patient no previous hospitalization and
was in the hospital and based on records to compare with. Patient reported to have liver dysfunction/cirrhosis and is on oral lactulose therapy although patient was not able to take it for few days. Patient was having visual hallucination on
admission there was question of patient possibly having alcohol withdrawal versus hepatic encephalopathy versus Wernicke's related changes. CT head without contrast done in ER was normal. No clear signs of ongoing sepsis. Urine drug screen and
alcohol test were negative. Patient ammonia levels were elevated to 128. Patient was started on lactulose therapy. Neurology and psychiatry was involved in care as well. Patient had a follow-up EEG which did not show any seizure activity.
Patient mentation improved over next 48 hours. Psychiatry able to evaluate patient and patient dose of venlafaxine and Abilify was decreased. Patient considered to have hepatic encephalopathy is admitted with clinical improvement post lactulose
therapy.
Patient also was hyperglycemic during the hospital stay, required high doses of insulin with rapid up titration of doses. Patient was prescribed tapering course of steroids for upper respiratory tract infection by primary care physician before this
discharge, this was discontinued.
Patient also have component of hyponatremia likely with ADH excess from underlying liver issues. Discussed neuro fluid restriction if patient have future episode of true acute hyponatremia.
Important imaging findings :
None
Procedure findings :
None
Discharge Plan
-
Patient Disposition: Home (Routine Discharge)
Discharge Diagnosis/Procedures: Hepatic encephalopathy, uncontrolled IDDM
Condition: Fair
Diet: Diabetic, Carb Controlled
Activity: As tolerated
Driving Restrictions: As prior to admission
Bathing Restrictions: OK to Shower
Referrals:
NONE,* [Family Provider] -
Prescriptions:
New
aripiprazole 2 mg Tablet
2 mg PO HS Qty: 30 2RF
venlafaxine [Effexor XR] 37.5 mg Capsule,Extended Release 24hr
37.5 mg PO DAILY Qty: 30 2RF
venlafaxine 75 mg Capsule,Extended Release 24hr
75 mg PO DAILY Qty: 30 2RF
sodium bicarbonate 650 mg Tablet
1,300 mg PO TID Qty: 90 0RF
(DME) Contour Next Test Strips Strip
Qty: 200 0RF
Rx Instructions:
AC HS
(DME) insulin syringe-needle U-100 [Insulin Syringe] 1 mL 29 gauge x 1/2' Syringe
Qty: 100 0RF
Rx Instructions:
AC HS
insulin aspart U-100 [Novolog FlexPen U-100 Insulin] 100 unit/mL (3 mL) Insulin Pen
12 unit SC AC Qty: 5 2RF
insulin glargine [Basaglar KwikPen U-100 Insulin] 100 unit/mL (3 mL) Insulin Pen
17 unit SC HS Qty: 5 2RF
(DME) pen needle, diabetic [BD Ultra-Fine Rafia Pen Needle] 32 gauge x ' Needle
Qty: 200 0RF
Rx Instructions:
AC HS
(DME) lancets [Color Lancets] 21 gauge Misc
Qty: 200 0RF
Rx Instructions:
AC HS
Continued
fluticasone propion-salmeterol [Wixela Inhub] 250-50 mcg/dose Blister With Device
1 inh INHALATION R BID
ipratropium-albuterol 0.5 mg-3 mg(2.5 mg base)/3 mL Solution For Nebulization
3 ml INHALATION R TID
prazosin 5 mg Capsule
5 mg PO HS
ascorbic acid (vitamin C) [Vitamin C] 500 mg Tablet
500 mg PO DAILY
ferrous sulfate 325 mg (65 mg iron) Tablet
325 mg PO DAILY
lisinopril 10 mg Tablet
10 mg PO DAILY
docusate sodium 100 mg Capsule
100 mg PO BID
insulin aspart U-100 [Novolog FlexPen U-100 Insulin] 100 unit/mL (3 mL) Insulin Pen
0 sliding scale dose SC ACHS
Rx Instructions:
06/26/2023, 130 = 2 units; 180 = 4 units; 230 = 6 units; 280 = 8 units; 330 = 10 units; 380 = 12 units; over 400 call [employer].
diclofenac sodium 1 % Gel
1 g TOPICAL DAILYPRN PRN (Reason: apply to B/L knees)
lactulose 10 gram/15 mL Solution
45 ml PO TID Qty: 0 0RF
Rx Instructions:
HOLD FURTHER DOSE IF HAVE 3 BOWEL MOVEMENTS FOR THE DAY
Changed
spironolactone 100 mg Tablet
50 mg PO DAILY Qty: 0 0RF
Discontinued
prednisone 20 mg Tablet
20 mg PO DAILY
omeprazole 20 mg Capsule,Delayed Release(Dr/Ec)
20 mg PO HSPRN PRN (Reason: gerd)
mirtazapine 15 mg Tablet
15 mg PO HS PRN (Reason: antidepressant)
aripiprazole 5 mg Tablet
5 mg PO HS
glipizide 2.5 mg Tablet
2.5 mg PO DAILY
venlafaxine 75 mg Tablet Extended Release 24hr
150 mg PO DAILY
Discharge Orders:
Discharge Patient (As Directed); Ordered 07/01/23
Ordered By: Jason Britton
Discharge Date and Time
Discharge Date/Time: 07/01/23 17:43
== END 2023-07-01 17:43 | disposition home or self-care (01) | DRG 637 ==
LOC: 3 WEST ACU 22:52
PROVIDERS: Clinical Nurse Specialist Family Health; Internal Medicine; Physician Assistant; ADMITTING PHYSICIAN Internal Medicine; ATTENDING PHYSICIAN Hospitalist; CONSULT PHYSICIAN Psychiatry & Neurology Neurology; CONSULT PHYSICIAN Psychiatry & Neurology Psychiatry; EMERGENCY PHYSICIAN Emergency Medicine
PROC: 3E02340 Introduction of Influenza Vaccine into Muscle, Percutaneous Approach (ICD-10-PCS; 2023-07-01)
DX: E11.65 Type 2 diabetes mellitus with hyperglycemia (principal); G92.8 Other toxic encephalopathy; D61.818 Other pancytopenia; E87.1 Hypo-osmolality and hyponatremia; N17.9 Acute kidney failure, unspecified; R47.01 Aphasia; K76.82 Hepatic encephalopathy; I10 Essential (primary) hypertension; F10.21 Alcohol dependence, in remission; E11.649 Type 2 diabetes mellitus with hypoglycemia without coma; R44.1 Visual hallucinations; K21.9 Gastro-esophageal reflux disease without esophagitis; D69.6 Thrombocytopenia, unspecified; F41.1 Generalized anxiety disorder; E66.9 Obesity, unspecified; K70.30 Alcoholic cirrhosis of liver without ascites; D53.9 Nutritional anemia, unspecified; D63.8 Anemia in other chronic diseases classified elsewhere; N18.32 Chronic kidney disease, stage 3b; F32.A Depression, unspecified; G25.81 Restless legs syndrome; Z91.030 Bee allergy status; Z23 Encounter for immunization; Z79.52 Long term (current) use of systemic steroids; Z79.51 Long term (current) use of inhaled steroids; Z79.4 Long term (current) use of insulin; Z79.84 Long term (current) use of oral hypoglycemic drugs; Z68.29 Body mass index [BMI] 29.0-29.9, adult
CPT/HCPCS: 70450; 70553; 76705; 80048; 80053; 80306; 81003; 82010; 82077; 82140; 82550; 82607; 82728; 82746; 82805; 82947; 82962; 82977; 83036; 83540; 83550; 83735; 83930; 83935; 84100; 84300; 84443; 85025; 85027; 85610; 87070; 90686; 94640; 95816; 96360; 96361; 96372; 97116; 97163; 97167; 97530; 97535; 99285; A9575; G0008

== ENCOUNTER 2023-07-06 14:33 | Inpatient (IN) | payer OTHER, SELFPAY ==
[2023-07-06] VITALS (10 sets, daily range): BP systolic 96–171; BP diastolic 78–106; BMI 33.6; BMI 35.4
--- NOTE | 2023-07-06 09:46 | ED.GENMED ---
History of Present Illness
General
Chief Complaint: Change in Mental Status
Source: patient and ambulance crew
Exam Limitations: none
Time Seen by Provider: 07/06/23 09:40
Nursing documentation reviewed up to this point in time: agreed with
History of Present Illness
History of Present Illness:
57-year-old male with a past medical history of insulin-dependent diabetes, CKD, alcohol abuse, cirrhosis, GERD, hypertension who presents to the emergency room via EMS from drug/alcohol treatment [place] where he has been staying; he presents today
with change in mental status. Patient is very limited as historian. He can tell me his name and he can tell me that he is in the emergency room but he is very lethargic and confused. Per EMS they were called for 'diabetic emergency.' On arrival
they found patient confused, lethargic, somewhat sweaty. No signs of trauma. They checked his blood sugar and it was actually mildly elevated at 255. He was transported to the emergency room to be assessed. According to report from staff at
facility patient was in his normal state of health yesterday and had normal mentation.
Review of Systems
Review of Systems
Unable to obtain full review of systems at this time due to: other (Mental status changes)
All Other Systems: Not applicable
Phy Exam
Physical Exam
Physical Exam:
General: Laying in bed lethargic but becomes quite agitated with arousable; oriented to person and place but not time and occasionally incoherent responses
Head: Normocephalic, atraumatic
Eyes: Conjunctiva normal, EOMI, pupils equal round reactive to light bilaterally�approximately 4 mm bilaterally
Throat: Airway intact, handling secretions
Neck: Trachea midline, supple without meningismus
Lungs: Clear to auscultation bilaterally, no wheezing, rales, rhonchi
Heart: Regular rate and rhythm, no murmurs, gallops, or rubs
Abd: Soft, non distended, no masses
Neuro: Moving all extremities with no focal deficit, lethargic but arousable and becomes agitated with arousal
Extremities: Warm and well-perfused, good pulses in all extremities
Scores
Heart Failure Risk
Heart Failure Risk Score: Not Applicable
Heart Score for Chest Pain Patients
STEMI patient?: Not applicable
Withdrawal Assessment of Alcohol
Withdrawal Assessment Completed?: Not applicable
Course
Orders/Labs/Results
Orders:
Orders
07/06/23 09:37
Electrocardiogram (*1) Urgent
Reason for Study: Other
Other Reason for Exam: Possible Sepsis
CT Head W/o Iv Contrast Urgent
Comment:
Reason For Exam: ams
EKG- Treatment ONCE
IV Insert/Care/Rem.- Treatment PRN
O2 Therapy [RESP] Urgent
Titrate/Wean O2 to maintain O2 sat greater than (%): 93
Special Instructions: TO MAINTAIN CONTINUOUS O2 SATS > OR = 93%
Pulse Ox/cont/shift [RESP] Urgent
Quantity: 1
Special Instructions: CONTINUOUS
07/06/23 09:41
Bedside Glucose- Treatment ONCE
07/06/23 09:43
CR Chest Portable - 1 View Urgent
Comment:
Reason For Exam: sob
Reason Study Needs to be Portable: Unable to Transport
07/06/23 09:44
0.9% Sodium Chloride 1000 ml [Nss] 1,000 ml IV BOLUS
Naloxone [Narcan] 0.4 mg IV NOW STA
Thiamine Injection 100 mg IV NOW STA
07/06/23 09:47
Ammonia Urgent
Complete Blood Count/With Diff Urgent
07/06/23 10:30
Ketamine Concentrate Injection [Ketamine HCl] 500 mg IM NOW STA
07/06/23 11:37
Alcohol Urgent
Comprehensive Metabolic Panel Urgent
Drug Screen, Urine [Urine Drug Abuse Screen] Urgent
Date Specimen was Collected: 07/06/23
Time Specimen was Collected: 11:30
Urinalysis Reflex To Culture Urgent
Date Specimen was Collected: 07/06/23
Time Specimen was Collected: 11:31
07/06/23 12:00
FOLic ACID [Folvite] 1 mg 0.9% Sodium Chloride 50 ml [Nss] 50 ml IV ONCE
07/06/23 12:42
Lactulose [Duphalac/Chronulac] 20 grams PO ONCE ONE
07/06/23 13:48
Admit/Transfer Patient As Directed
Co-Sign Provider:
Level of Care: Inpatient admission
Assign to:: Telemetry
Physician / Group: Usman
Diagnosis: Hepatic Encephalopathy
Reason for Telemetry: Arrhythmia
Date to Stop Telemetry: 07/09/23
Time to Stop Telemetry: 11:00
Reason for Hospitalization: IVFs, Lactulose
Expected length of stay greater than two midnights?: Yes
ELOS- Estimated Length of Stay in days: 3
I certify the patient meets the requirements for IP care: Yes
07/06/23 13:56
Code Status As Directed
Resuscitation Status: Full Code
07/06/23 14:09
Lactulose [Duphalac/Chronulac] 20 grams PO NOW STA
07/09/23 11:00
DC Protocol for Telemetry ONCE
Abnormal Lab Results
07/06/23 07/06/23
09:47 11:37
RBC 2.95 L 10^6/uL
(4.70-6.10)
Hgb 10.4 L g/dL
(13.0-18.0)
Hct 28.2 L %
(39.0-52.0)
MCV 95.6 H fL
(80.0-94.0)
MCH 35.3 H pg
(27.0-31.0)
RDW 15.2 H %
(11.5-14.5)
Plt Count 50 L D 10^3/uL
(130-400)
Absolute Lymphs (auto) 0.9 L 10^3/uL
(1.2-3.4)
Immature Gran % 0.8 H %
(0-0.5)
Lymphocytes % 17.4 L %
(20.5-51.1)
Chloride 116 H mmol/L
(98-107)
Carbon Dioxide 20 L mmol/L
(22-30)
Glucose 206 H mg/dl
(70-99)
Total Bilirubin 2.1 H mg/dl
(0.2-1.3)
AST 88 H U/L
(17-59)
ALT 80 H U/L
(0-50)
Alkaline Phosphatase 129 H U/L
(38-126)
Ammonia 93 H umol/L
(9-30)
Total Protein 5.9 L g/dl
(6.3-8.2)
Albumin 2.6 L g/dl
(3.5-5.0)
POC Glucose 210 H mg/dl
(70-99)
07/06/23 09:47
07/06/23 11:37
Vital Signs
Initial and Last Documented VS:
Initial Vital Signs
Temp Pulse Resp Pulse Ox
36.6 C 80 13 100
07/06/23 09:41 07/06/23 09:41 07/06/23 09:41 07/06/23 09:41
Last Documented Vital Signs
Temp Pulse Resp BP Pulse Ox
36.6 C 86 12 136/78 97
07/06/23 09:41 07/06/23 14:15 07/06/23 14:15 07/06/23 14:00 07/06/23 14:15
MDM/Problems Addressed
Differential Diagnosis Includes:
Hepatic encephalopathy, uremia/worsening renal failure, infection, intracranial hemorrhage, drug/alcohol intoxication
MDM/Problems Addressed:
57-year-old male presents to the emergency room via EMS for altered mental status�lethargic and confused. Has had similar admissions in the past related to hepatic encephalopathy and blood glucose issues. He is actually mildly hyperglycemic on
arrival here. Vital signs are normal, he is afebrile. No signs of trauma. Exam as above. IV placed labs sent off including a CBC and a CMP, ammonia level. Urinalysis and UDS sent as well as an alcohol level. Will obtain a chest x-ray and EKG.
Monitor closely reassess after the above.
Patient very agitated with IV placement, pulling IVs. He has become quite aggressive towards staff, tried to kick and punch nurse at the bedside. He was sedated with IM ketamine to facilitate his initial workup for altered mental status.
CT head negative for any acute pathology. Initial labs reviewed: CBC shows anemia and thrombocytopenia which are chronic issues. CMP shows abnormal LFTs in keeping with his chronic alcohol abuse�these are similar to baseline values. His
urinalysis is negative for infection. UDS was negative. Alcohol level was negative. Chest x-ray shows no acute disease. His ammonia level was elevated and at this point working diagnosis is hepatic encephalopathy. Will treat with lactulose.
Case discussed with hospitalist for admission.
Chronic conditions affecting care:
Alcohol abuse and cirrhosis
*Radiology
Radiology exam reviewed: radiology read reviewed
*Pulse Oximetry
Patient hypoxic: no
*EKG
Interpreted by ED Provider?: Yes
Heart Rate: 82
Rate: normal
Rhythm: sinus
Iraan: normal axis
Interval: first degree heart block
QRS Pattern: normal QRS
Ischemia: no ischemia
*Critical Care Note
Total Time (30-74mins, 75-104mins- exclusive of procedures): 36
comment:
Critical care statement: A total of 36 minutes of critical care time was provided for this patient. This includes management of unstable vital signs, evaluation of the patient at bedside, frequent reassessment, discussion with
consultants/hospitalist, and review of pertinent medical records. This time was separate from time utilized to perform any aforementioned documented procedures
Data Reviewed
Review of Other/Old Records Reveals: Labs and Records
Source: patient, records and ambulance crew
Patient Management
Social determinants of health affecting care: Substance abuse
Discussion with other providers: Hospitalist (Discussed with hospitalist)
Escalation/DeEscalation of care consider admission/obs:
Admission indicated
ED Attending Note
-
Portions of this chart may have been created with voice recognition software.� Occasional wrong word or��sound alike� substitutions may have occurred due to the inherent limitations of voice recognition software.
Discharge Plan
Departure
Patient Disposition: Admit
Date of Disposition: 07/06/23
Time of Disposition: 12:43
Admit to doctor: Albina
Presentation/result/management discussed w/ accepting MD/DO: Hospitalist
Discharge Problem:
Encephalopathy
Interventions
Interventions:
*Risk Screen - Suicide Last Done: 07/06/23 09:52
*General Assessment Last Done: 07/06/23 09:52
*Neglect/Abuse Screening Last Done: 07/06/23 09:52
*ED COVID-19 Vaccine History Last Done: 07/06/23 09:52
ED- Neurological Assessment Last Done: 07/06/23 09:52
ED Swallowing Screen Last Done: 07/06/23 12:50
[2023-07-06 09:48] LABS: Glucose - Point of Care 210 mg/dl (70-99)
[2023-07-06 10:02] LABS: % Basophils 0.8 % (0-2); % Eosinophils 2.9 % (0-6); % Immature Granulocytes 0.8 % (0-0.5); % Lymphocytes 17.4 % (20.5-51.1); % Neutrophils 69.1 % (42.2-75.2); Absolute Eosinophils 0.2 10^3/uL (0-0.7); Absolute Lymphocytes 0.9 10^3/uL (1.2-3.4); Absolute Monocytes 0.5 10^3/uL (0.1-0.6); Absolute Neutrophils 3.6 10^3/uL (1.4-6.5); Hematocrit 28.2 % (39.0-52.0); Hemoglobin 10.4 g/dL (13.0-18.0); Mean Corp Hgb Conc. 36.9 g/dL (33.0-37.0); Mean Corpuscular Hgb 35.3 pg (27.0-31.0); Mean Corpuscular Volume 95.6 fL (80.0-94.0); Mean Platelet Volume 10.3 fL (7.4-10.4); Nucleated Red Blood Cells % 0 % (-); Platelet Count 50 10^3/uL (130-400); Red Blood Cell Count 2.95 10^6/uL (4.70-6.10); Red Cell Dist. Width 15.2 % (11.5-14.5); White Blood Cell Count 5.2 10^3/uL (4.8-10.8)
[2023-07-06 10:21] LABS: Ammonia 93 umol/L (9-30)
[2023-07-06] MEDS: KETAMINE HCL 500 MG IM (10:34)
--- NOTE | 2023-07-06 10:35 | EDRN ---
on attempted IV access with VAT RN and ED Attending pt started getting increasingly agitated. verbal de-escalation attempted multiple times to calm pt. pt reoriented to situation multiple times without success. pt remains agitated and swinging at
this RN as well as ECT. Gazmichelle back at bedside d/t pts increasing agitation. pt offered urinal multiple times for which each time pt attempted to get out of bed and swing and hit RN and ECT. pt medicated with 500 MG IM ketamine d.t pt IV now
infiltrated from pts extreme agitation. appropriate handling of patient remained throughout pts agitation and combative outbursts. pt remains on cafeteria monitor.
[2023-07-06] MEDS: THIAMINE INJECTION 100 MG IV (11:44)
[2023-07-06] MEDS: NSS 1000 IV ×2 (11:45→16:47)
--- NOTE | 2023-07-06 11:52 | EDRN ---
after multiple attempts IV access finally established. labs sent. pt remains intermittently attempting to get out of bed. pt continuously reoriented to situation. fluids infusing and meds given per MAR. pharmacy called for meds. pt intermittently
murmuring 'what the fuck is going on'
[2023-07-06 12:01] LABS: Urine Albumin Negative (Neg - Trace); Urine Bilirubin Negative (Negative); Urine Character Clear (Clear); Urine Color Yellow; Urine Glucose Negative (Negative); Urine Ketone Negative (Negative); Urine Leukocyte Negative (Negative); Urine Nitrite Negative (Negative); Urine Occult Blood Negative (Negative); Urine Specific Gravity 1.005 (<1.030); Urine Urobilinogen 1+ (Neg - 1+)
[2023-07-06 12:07] LABS: ALT (SGPT) 80 U/L (0-50); AST (SGOT) 88 U/L (17-59); Albumin 2.6 g/dl (3.5-5.0); Alkaline Phosphatase 129 U/L (38-126); Blood Urea Nitrogen 14 mg/dl (9-20); Calcium 8.5 mg/dl (8.4-10.2); Carbon Dioxide 20 mmol/L (22-30); Chloride 116 mmol/L (98-107); Estimated Creatinine Clearance 104 ml/min; Glucose 206 mg/dl (70-99); Sodium 138 mmol/L (135-145); Total Bilirubin 2.1 mg/dl (0.2-1.3); Total Protein 5.9 g/dl (6.3-8.2); eGFR > 60.00
[2023-07-06 12:22] LABS: Potassium 4.3 mmol/L (3.5-5.1)
[2023-07-06] MEDS: FOLVITE 50.2000000000000028 MG IV (12:25)
[2023-07-06 12:29] LABS: Amphetamines Negative (Negative); Barbiturates Negative (Negative); Benzodiazepines Negative (Negative); Buprenorphine Negative (Negative); Cocaine Negative (Negative); Marijuana Negative (Negative); Methadone Negative (Negative); Methamphetamines Negative (Negative); Opiates Negative (Negative); Phencyclidine Negative (Negative); Tricyclic Antidepressants Negative (Negative)
[2023-07-06] MEDS: DUPHALAC/CHRONULAC 20 GRAMS PO ×2 (12:51→14:44)
--- NOTE | 2023-07-06 13:47 | PHANOTE ---
Addendum entered by Jim Nicole 07/06/23 14:37:
07/06/2023, med rec tech, pt. only has Glipizide ER 2.5 mg daily in their pharmacy fill data and no [facility] records.
Original Note:
07/06/2023, med rec tech, used pt.'s discharge paperwork from 07/01/2023 to compile their med. list. Pt. filled Glipizide ER 2.5 mg to be taken daily for 30 days on 06/25/2023 but this med. was not included on their discharge paperwork so it was not
included on their med. list.
--- NOTE | 2023-07-06 14:02 | HPS.HSE ---
Addendum entered and electronically signed by Jose Ramon Mary MD 07/06/23 14:45:
I saw and examined the patient.
The NREMT or PA's note was reviewed and I agree with the note.
Comment: 57-year-old male with came with change in mental status. Patient was recently here with hepatic encephalopathy. Ammonia now 93. Unsure if patient is compliant with his lactulose. Give lactulose now. Aim for 3-4 bowel movement. Consult
GI. Clear liquid diet for now. Speech consult. Monitor mental status closely. Neuro work-up previous admission was negative for any CVA
General: Well Developed and Well Nourished
HEENT: NormoCephalic, Anicteric, Atraumatic
Respiratory: Clear and Non Labored Respirations
Cardiac: S1/S2 and Regular Rhythm
GI: Soft, Non Tender and Non Distended
Rectal: Deferred by Provider
Musculoskeletal: mild edema
Skin: Warm and Dry
Neuro: calm,lethargy
I spent a total of 77 minutes with the patient or on the floor. More than 50% of this time involved counseling and coordination of care.
Original Note:
Family Physician
-
Family Physician: NO INTERVIEW UNKNOWN
Chief Complaint
-
Change in Mental Status
History of Present Illness
Patient is a 57 y/o male past medical history of cirrhosis who presents with change in mental status. Patient is currently at a local alcohol recovery center. He was found by staff to be lethargic and was sent to the emergency department for
evaluation. At present time patient is unable to tell me where he is or why he came to the hospital. He is unable to tell me if he has been taking his lactulose. He denies cough, abdominal pain or dysuria.
Medical History
Past Medical History
Past Medical History: Reports Other
Additional Past Medical History:
Diabetes Mellitus, Type II
Alcoholic Cirrhosis
Hepatic Encephalopathy
Chronic Thrombocytopenia
Chronic Hyponatremia
Essential Hypertension
Anemia of Chronic Disease
Depression
Restless Leg Syndrome
Past Surgical History: Reports None
Social History
Tobacco: Non-smoker
Alcohol: Former
Family History
Family History: Unable to Obtain
Allergies / Home Medications
Allergies reflects when Allergies were last updated in [facility].
Home Medications with original date entered in [facility]
Allergy/Medication List:
Allergies
Allergy/AdvReac Type Severity Reaction Status Date / Time
bee venom protein (honey bee) Allergy Unknown Verified 06/26/23 18:07
Home Medications
ascorbic acid (vitamin C) 500 mg tablet (Vitamin C) 500 mg PO DAILY Supplement 06/26/23
diclofenac sodium 1 % topical gel 1 g topical DAILYPRN PRN apply to B/L knees 06/26/23
docusate sodium 100 mg capsule 100 mg PO BID Constipation 06/26/23
ferrous sulfate 325 mg (65 mg iron) tablet 325 mg PO DAILY Supplement 06/26/23
fluticasone 250 mcg-salmeterol 50 mcg/dose blistr powdr for inhalation (Wixela Inhub) 1 inh inhalation R BID Lung/Breathing Issues 06/26/23
insulin aspart U-100 100 unit/mL (3 mL) subcutaneous pen (Novolog FlexPen U-100 Insulin aspart) 0 sliding scale dose SC ACHS Diabetes 06/26/23
ipratropium 0.5 mg-albuterol 3 mg (2.5 mg base)/3 mL nebulization soln 3 ml inhalation R TID Lung/Breathing Issues 06/26/23
lisinopril 10 mg tablet 10 mg PO DAILY Blood Pressure 06/26/23
prazosin 5 mg capsule 5 mg PO HS Blood Pressure 06/26/23
aripiprazole 2 mg tablet 2 mg PO HS Mental Health/Anxiety #30 tabs 07/01/23
insulin aspart U-100 100 unit/mL (3 mL) subcutaneous pen (Novolog FlexPen U-100 Insulin aspart) 12 unit (0.12 mL) SC AC #5 ea 07/01/23
insulin glargine 100 unit/mL (3 mL) subcutaneous pen (Basaglar KwikPen U-100 Insulin) 17 unit (0.17 mL) SC HS #5 ea 07/01/23
lactulose 10 gram/15 mL oral solution 45 ml PO TID Liver Issues #0 mL 07/01/23
sodium bicarbonate 650 mg tablet 1,300 mg PO TID Acidosis #90 tabs 07/01/23
spironolactone 100 mg tablet 50 mg PO DAILY Liver Issues #0 tabs 07/01/23
venlafaxine 37.5 mg capsule,extended release 24 hr (Effexor XR) 37.5 mg PO DAILY Mental Health/Anxiety #30 caps 07/01/23
venlafaxine 75 mg capsule,extended release 24 hr 75 mg PO DAILY #30 caps 07/01/23
Review of Systems
-
Unable to obtain full review of systems at this time due to: Acuity
Physical Exam
Vital Signs
Vital Signs
Temp Pulse Resp BP Pulse Ox
97.9 F 97 13 132/106 97
07/06/23 09:41 07/06/23 13:30 07/06/23 13:30 07/06/23 13:00 07/06/23 13:15
Physical Exam
General: Well Developed and Well Nourished
HEENT: NormoCephalic, Anicteric, Atraumatic and Other (Mucous membrane appear dry)
Respiratory: Clear and Non Labored Respirations
Cardiac: S1/S2 and Regular Rhythm
GI: Soft, Non Tender and Non Distended
Rectal: Deferred by Provider
Musculoskeletal: No Clubbing, No Cyanosis and Other (+2 pitting edema bilateral lower ext)
Skin: Warm and Dry
Neuro: Other (Patient unable to participate in neurologic evaliation. Appears to move all four extremities appropriately. Lethargic but easily arousable and able to some simple questions)
Laboratory Results
-
07/06/23 09:47
07/06/23 11:37
Laboratory Results
Total Bilirubin 2.1 mg/dl (0.2-1.3) H 07/06/23 11:37
AST 88 U/L (17-59) H 07/06/23 11:37
ALT 80 U/L (0-50) H 07/06/23 11:37
Alkaline Phosphatase 129 U/L (38-126) H 07/06/23 11:37
Data Reviewed
-
Lab Data: Labs Reviewed by me
Impression/Plan
-
Acute Hepatic Encephalopathy
-Consult GI
-Resume Lactulose per prior admission
-Trend ammonia level
-Allow clear liquids until mentation improves
Alcoholic Cirrhosis
-Hold spironolactone as patient appears volume depleted
-Continue thiamine and folic acid
Chronic Thrombocytopenia
-Platelet stable from previous
Chronic Hyponatremia
-Sodium level currently within normal range
-Continue sodium bicarbonate
Anemia of Chronic Disease
-Continue iron supplement
Diabetes Mellitus, Type II
-HgbA1c 8.8 in Jun 2023
-Half usual dose of long acting insulin ordered until able to resume diet
-Monitors sugar and continue coverage insulin
Essential Hypertension
-Continue lisinopril and prazosin with hold parameters
Depression
-Continue Abilify and Effexor
DVT proph: SCDs
Code Status: Full Code
--- NOTE | 2023-07-06 14:08 | EDRN ---
pt calm and cooperative with staff presently. pt able to follow simple commands. pt reminded he needs to remain in bed @ this time and pt stated to this RN 'Okay, I don't want to get out of bed anyway'. Pt remains on plan nurse. pt on RA.
resting comfortably in stretcher @ this time.
--- NOTE | 2023-07-06 14:22 | CON.GI ---
Addendum entered and electronically signed by Varsha Becerra MD 07/06/23 19:33:
I saw and examined the patient.
The [facility] [employer] REPORTER's note was reviewed and I agree with the note.
Comment: This is a 57-year-old male with alcohol cirrhosis and prior ETOH hepatitis who is currently in alcohol recovery center who was admitted with altered mental status and recurrent hepatic encephalopathy. He had a recent admission also for
hepatic encephalopathy. It is unclear if he was taking his lactulose as prescribed. He denies any abdominal pain currently, no fevers or chills, no rectal bleeding or melena. He is currently awake and oriented to person, place and year.
Assessment and plan alcohol cirrhosis presenting with recurrent hepatic encephalopathy possible non compliance with lactulose, will increase lactulose to 30 mL every 4 hours currently has no signs of GI bleed or infection will get AFP and will also
add Xifaxan. US on 06/26 no ascites or liver mass seen. Had gallstones but he is currently asymptomatic from it. advised alcohol abstinence [facility] unclear when his last surveillance endoscopy for esophageal
varices was or colonoscopy was.
06/26 US IMPRESSION:
No ascites.
Cholelithiasis.
Original Note:
Consultation
-
Date/Time Consultation Requested: 07/06/23 1400
Date/Time Consultation Performed: 07/06/23 1415
Requesting Provider: Mary Wood PA-C
Performing Provider: DEV Tran, Varsha Becerra MD
Reason for Consultation: hepatic encephalopathy
Medical History
Chief Complaint / HPI
Chief Complaint: change in mental status
History of Present Illness:
Pt is a 57yo with hx cirrhosis presents with change in mental status currently at [facility] and noted with lethargy. Pt with recent admission 06/26-07/01 with similar with similar symptoms and concern for encephalopathy with inability to
take lactulose. During that admission ammonia was 128. He returns with ammonia 93. In reviewing with patient sister patient is a [facility]. He in originally from [place] has been
in several rehab program including [facility] in [place] along with recent [facility] program in [place], [place] and now [place]. She related he was moved several months ago and noted with ETOH use with 1 day out of the program. He was
evaluated for liver transplant in [place] several years ago but not a candidate due to continued ETOH and tobacco abuse. Sister did not recall hx hep C or prior GI bleeding but does recall prolonged admission in [place] which sounds like ETOH
hepatitis and prolonged ETOH withdrawal.
Pt is currently lethargic but denies dysphagia, GERD, nausea, vomiting, abdominal pain, diarrhea, constipation or rectal bleeding. Hx prior EGD and colonoscopy several years ago. Sister did not recall findings.
Past Medical History
Past Medical History: HTN, NIDDM, Psychiatric (depression) and Other (cirrhosis with hepatic encephalopathy, thrombocytopenia, hyponatremia, anemia, restless leg syndrome)
Social History
Tobacco: Former Smoker
Alcohol: Chronic Alcoholic (last ? several months ago)
Drug: Marijuana (possible in past and prior hx chronic pain med use with narcotic addition)
Living: [facility] ([facility])
Employment: Disabled
Family History
Family History: Other (father with COPD, mother CVA, no family member with cirrhosis)
Allergies / Home Medications
Allergy/AdvReac Type Severity Reaction Status Date / Time
bee venom protein (honey bee) Allergy Unknown Verified 06/26/23 18:07
Medication Instructions Recorded
ascorbic acid (vitamin C) 500 mg 500 mg PO DAILY Supplement 06/26/23
tablet (Vitamin C)
diclofenac sodium 1 % topical gel 1 g topical DAILYPRN PRN apply to 06/26/23
B/L knees
docusate sodium 100 mg capsule 100 mg PO BID Constipation 06/26/23
ferrous sulfate 325 mg (65 mg 325 mg PO DAILY Supplement 06/26/23
iron) tablet
fluticasone 250 mcg-salmeterol 50 1 inh inhalation R BID 06/26/23
mcg/dose blistr powdr for Lung/Breathing Issues
inhalation (Wixela Inhub)
insulin aspart U-100 100 unit/mL 0 sliding scale dose SC ACHS 06/26/23
(3 mL) subcutaneous pen (Novolog Diabetes
FlexPen U-100 Insulin aspart)
ipratropium 0.5 mg-albuterol 3 mg 3 ml inhalation R TID 06/26/23
(2.5 mg base)/3 mL nebulization Lung/Breathing Issues
soln
lisinopril 10 mg tablet 10 mg PO DAILY Blood Pressure 06/26/23
prazosin 5 mg capsule 5 mg PO HS Blood Pressure 06/26/23
aripiprazole 2 mg tablet 2 mg PO HS Mental Health/Anxiety 07/01/23
#30 tabs
insulin aspart U-100 100 unit/mL 12 unit (0.12 mL) SC AC #5 ea 07/01/23
(3 mL) subcutaneous pen (Novolog
FlexPen U-100 Insulin aspart)
insulin glargine 100 unit/mL (3 17 unit (0.17 mL) SC HS #5 ea 07/01/23
mL) subcutaneous pen (Basaglar
KwikPen U-100 Insulin)
lactulose 10 gram/15 mL oral 45 ml PO TID Liver Issues #0 mL 07/01/23
solution
sodium bicarbonate 650 mg tablet 1,300 mg PO TID Acidosis #90 tabs 07/01/23
spironolactone 100 mg tablet 50 mg PO DAILY Liver Issues #0 tabs 07/01/23
venlafaxine 37.5 mg 37.5 mg PO DAILY Mental 07/01/23
capsule,extended release 24 hr Health/Anxiety #30 caps
(Effexor XR)
venlafaxine 75 mg capsule,extended 75 mg PO DAILY #30 caps 07/01/23
release 24 hr
Review of Systems
-
History Source: Patient and Family
Constitutional: Reports Weight Loss (? per patient few lbs ) and Fatigue
EENT: Reports No Symptoms
Respiratory: Reports No Symptoms
Cardiac: Reports No Symptoms
Abdomen/GI: Reports No Symptoms
: Reports No Symptoms
Neurological: Reports Weakness and Other (confusion)
Endocrine: Reports No Symptoms
Hematologic/Lymphatic: Reports No Symptoms
Vital Signs
Temp Pulse Resp BP Pulse Ox
97.9 F 86 12 136/78 97
07/06/23 09:41 07/06/23 14:15 07/06/23 14:15 07/06/23 14:00 07/06/23 14:15
Physical Exam
Exam
General: Other (lethargic but awakens to voice)
HEENT: Normocephalic and Anicteric
Respiratory: Clear
Cardiac: Regular Rhythm
GI: Soft, Non Tender and Non Distended
Musculoskeletal: No Clubbing and No Cyanosis
Skin: Warm
Neuro: Other (lethargic but arousable )
Psych: Calm
Results
WBC 5.2 10^3/uL (4.8-10.8) 07/06/23 09:47
Hgb 10.4 g/dL (13.0-18.0) L 07/06/23 09:47
Hct 28.2 % (39.0-52.0) L 07/06/23 09:47
MCV 95.6 fL (80.0-94.0) H 07/06/23 09:47
Plt Count 50 10^3/uL (130-400) L D 07/06/23 09:47
Absolute Neuts (auto) 3.6 10^3/uL (1.4-6.5) 07/06/23 09:47
Sodium 138 mmol/L (135-145) 07/06/23 11:37
Potassium 4.3 mmol/L (3.5-5.1) 07/06/23 11:37
Chloride 116 mmol/L (98-107) H 07/06/23 11:37
Carbon Dioxide 20 mmol/L (22-30) L 07/06/23 11:37
BUN 14 mg/dl (9-20) 07/06/23 11:37
Creatinine 1.1 mg/dL (0.7-1.3) 07/06/23 11:37
Calcium 8.5 mg/dl (8.4-10.2) 07/06/23 11:37
Total Bilirubin 2.1 mg/dl (0.2-1.3) H 07/06/23 11:37
AST 88 U/L (17-59) H 07/06/23 11:37
ALT 80 U/L (0-50) H 07/06/23 11:37
Alkaline Phosphatase 129 U/L (38-126) H 07/06/23 11:37
Diagnostic Image Results:
07/06/23 US abdomen limited No ascites.
Cholelithiasis.
Prior GI Procedures:
EGD: several years ago sister unaware of findings
Colonoscopy: several years ago sister unware of findings
Assessment / Plan
-
Pt is a 57yo with hx cirrhosis presents with change in mental status currently at [facility] center and noted with lethargy. Pt with recent admission 06/26-07/01 with similar symptoms and concern for encephalopathy with inability to take
lactulose. During that admission ammonia was 128. He returns with ammonia 93. In reviewing with patient sister patient is a and [facility]. He in originally from [place] has been in
several rehab program including [facility] in [place] along with recent [facility] in [place], [place] and now [place]. She related he was moved several months ago and noted with ETOH use with 1 day out of the program. He was
evaluated for liver transplant in [place] several years ago but not a candidate due to continued ETOH and tobacco abuse. Sister did not recall hx hep C or prior GI bleeding but does recall prolonged admission in [place] which sounds like ETOH
hepatitis and prolonged ETOH withdrawal.
-hepatic encephalopathy
-cirrhosis
-coagulopathy
-thrombocytopenia
-ETOH abuse
other medical problems:
-anxiety
-chronic back issue with prior narcotic use
-DM
-HTN
-anemia
-restless leg syndrome
-tobacco ause
PLAN:
etiology of hepatic encephalopathy related to medication non compliance, infection, vs other-- current hbg stable no signs of GI bleed or electrolyte imbalance
agree with lactulose-- change to 30ml Q 4 hour
monitor mental status
check cx to rule out infection, CXR stable, UA neg
keep electrolytes corrected
check US ABD and AFP for HCC screening
will need follow up after discharge for repeat EGD for EV screening-- pt has followed at [facility] in past
updated sister on admission and plan not candidate for liver transplant in past due to continued ETOH use
cont Aldactone 50mg daily ( was not on lasix prior to admission )
ETOH and tobacco abstinence
will follow
-
-
Thank you for consultation and allowing me to participate in the patient's care. Please call the corrosion control technician GI physician during the after hours with any questions or concerns.
--- NOTE | 2023-07-06 14:52 | EDRN ---
pt given more lactulose per jul. pt tolerated well. pt given diet gingerale per GI ok. pt again tolerating PO well. pt remains in a calm manor with staff.
[2023-07-06] MEDS: DUONEB 3 ML INH ×2 (16:18→19:59)
[2023-07-06 16:31] LABS: AFP Male/Tumor Marker 6.28 ng/ml
[2023-07-06] MEDS: SODIUM BICARBONATE 1300 MG PO ×2 (16:45→21:21)
[2023-07-06] MEDS: DUPHALAC/CHRONULAC 30 GRAMS PO ×2 (16:45→21:19)
[2023-07-06 16:48] LABS: Glucose - Point of Care 251 mg/dl (70-99)
--- NOTE | 2023-07-06 16:50 | ED.GENMED ---
History of Present Illness
General
Chief Complaint: Change in Mental Status
Time Seen by Provider: 07/06/23 09:40
Travel History
Have you had any contact with someone who has COVID-19?: Unable to Answer
Do you have any symptoms of coronavirus? Fever > 100 degrees, chills, cough, shortness of breath, sore throat, loss of taste or smell, muscle aches, or headache?: Unable to Answer
Course
Orders/Labs/Results
Orders:
Orders
07/06/23 Breakfast
Clear Liquid
At Your Request: Full Participation
Does patient need a safe tray?: No
07/06/23 09:37
Electrocardiogram (*1) Urgent
Reason for Study: Other
Other Reason for Exam: Possible Sepsis
CT Head W/o Iv Contrast Urgent
Comment:
Reason For Exam: ams
EKG- Treatment ONCE
IV Insert/Care/Rem.- Treatment PRN
07/06/23 09:41
Bedside Glucose- Treatment ONCE
07/06/23 09:43
CR Chest Portable - 1 View Urgent
Comment:
Reason For Exam: sob
Reason Study Needs to be Portable: Unable to Transport
07/06/23 09:44
0.9% Sodium Chloride 1000 ml [Nss] 1,000 ml IV BOLUS
Naloxone [Narcan] 0.4 mg IV NOW STA
Thiamine Injection 100 mg IV NOW STA
07/06/23 09:47
Ammonia Urgent
Complete Blood Count/With Diff Urgent
07/06/23 10:30
Ketamine Concentrate Injection [Ketamine HCl] 500 mg IM NOW STA
07/06/23 11:37
AFP Male/Tumor Marker Urgent
Alcohol Urgent
Comprehensive Metabolic Panel Urgent
Drug Screen, Urine [Urine Drug Abuse Screen] Urgent
Date Specimen was Collected: 07/06/23
Time Specimen was Collected: 11:30
Urinalysis Reflex To Culture Urgent
Date Specimen was Collected: 07/06/23
Time Specimen was Collected: 11:31
07/06/23 12:00
FOLic ACID [Folvite] 1 mg 0.9% Sodium Chloride 50 ml [Nss] 50 ml IV ONCE
07/06/23 12:42
Lactulose [Duphalac/Chronulac] 20 grams PO ONCE ONE
07/06/23 13:48
Admit/Transfer Patient As Directed
Co-Sign Provider:
Level of Care: Inpatient admission
Assign to:: Telemetry
Physician / Group: Usman
Diagnosis: Hepatic Encephalopathy
Reason for Telemetry: Arrhythmia
Date to Stop Telemetry: 07/09/23
Time to Stop Telemetry: 11:00
Reason for Hospitalization: IVFs, Lactulose
Expected length of stay greater than two midnights?: Yes
ELOS- Estimated Length of Stay in days: 3
I certify the patient meets the requirements for IP care: Yes
07/06/23 13:56
Code Status As Directed
Resuscitation Status: Full Code
07/06/23 14:09
Lactulose [Duphalac/Chronulac] 20 grams PO NOW STA
07/06/23 16:05
0.9% Sodium Chloride 1000 ml [Nss] 1,000 ml IV 50 mls/hr
Acetaminophen [Tylenol] 650 mg PO Q4HPRN PRN
Dextrose 50%-Water [Dextrose 50% Syringe] 12.5 grams IV [id number] PRN
Glucagon [GlucaGen] 1 mg IM PRN PRN
Ipratropium/Albuterol Sulfate [Duoneb] 3 ml INH R TID
Sodium Bicarbonate 1,300 mg PO TID
07/06/23 16:05
GASTROINTESTINAL CONSULT Routine
Consulting Provider: Varsha Becerra
Was physician already notified: Yes
Activity As Directed
Activity Level: Out of Bed-Early Mobility
With Assistance
Bedside Glucose Monitoring As Directed
Frequency: AC&HS
Comment: Change to q6h if pt on TPN, tube feeding or not eating
I&O [Intake/ Output] As Directed
Frequency: q12h
Pneumatic Compression Sleeves As Directed
Type: Knee high
Vital Signs As Directed
Frequency: Per unit guidelines
Weight As Directed
Frequency: Daily
Ot Eval And Treat Routine
Pt Eval And Treat Routine
Activity Level: Out of Bed-Early Mobility
Speech Therapy Eval & Treat Routine
DX Deep Vein Thrombosis Video Routine
07/06/23 16:30
Insulin Aspart Corrective Mod [Novolog Flexpen-Moderate Resistance] See Protocol SC AC
07/06/23 20:00
Thiamine HCl [Vitamin B1] 100 mg PO BID
07/06/23 22:00
Aripiprazole [Abilify] 2 mg PO HS
Prazosin HCl [Minipress] 5 mg PO HS
insulin glargine [Basaglar KwikPen U-100 Insulin] 10 unit SC HS
07/07/23 06:00
Ammonia IN AM
Complete Blood Count/No Diff IN AM
Comprehensive Metabolic Panel IN AM
Magnesium IN AM
Prothrombin Time IN AM
07/07/23 08:00
Ascorbic Acid [Vitamin C] 500 mg PO DAILY
FOLic ACID [Folvite] 1 mg PO DAILY
Ferrous Sulfate [Feosol] 325 mg PO DAILY
Lisinopril [Zestril] 10 mg PO DAILY
Venlafaxine Extended Release [Effexor Xr] 37.5 mg PO DAILY
Venlafaxine Extended Release [Effexor Xr] 75 mg PO DAILY
07/09/23 11:00
DC Protocol for Telemetry ONCE
Abnormal Lab Results
07/06/23 07/06/23
09:47 11:37
RBC 2.95 L 10^6/uL
(4.70-6.10)
Hgb 10.4 L g/dL
(13.0-18.0)
Hct 28.2 L %
(39.0-52.0)
MCV 95.6 H fL
(80.0-94.0)
MCH 35.3 H pg
(27.0-31.0)
RDW 15.2 H %
(11.5-14.5)
Plt Count 50 L D 10^3/uL
(130-400)
Absolute Lymphs (auto) 0.9 L 10^3/uL
(1.2-3.4)
Immature Gran % 0.8 H %
(0-0.5)
Lymphocytes % 17.4 L %
(20.5-51.1)
Chloride 116 H mmol/L
(98-107)
Carbon Dioxide 20 L mmol/L
(22-30)
Glucose 206 H mg/dl
(70-99)
Total Bilirubin 2.1 H mg/dl
(0.2-1.3)
AST 88 H U/L
(17-59)
ALT 80 H U/L
(0-50)
Alkaline Phosphatase 129 H U/L
(38-126)
Ammonia 93 H umol/L
(9-30)
Total Protein 5.9 L g/dl
(6.3-8.2)
Albumin 2.6 L g/dl
(3.5-5.0)
POC Glucose 210 H mg/dl
(70-99)
07/06/23 09:47
07/06/23 11:37
Vital Signs
Initial and Last Documented VS:
Initial Vital Signs
Temp Pulse Resp Pulse Ox
97.9 F 80 13 100
07/06/23 09:41 07/06/23 09:41 07/06/23 09:41 07/06/23 09:41
Last Documented Vital Signs
Temp Pulse Resp BP Pulse Ox
97.9 F 77 11 96/78 99
07/06/23 09:41 07/06/23 15:30 07/06/23 15:30 07/06/23 15:00 07/06/23 15:30
ED Attending Note
-
Portions of this chart may have been created with voice recognition software.� Occasional wrong word or��sound alike� substitutions may have occurred due to the inherent limitations of voice recognition software.
Discharge Plan
Departure
Patient Disposition: Admit
Date of Disposition: 07/06/23
Time of Disposition: 12:43
Admit to doctor: Albina
Presentation/result/management discussed w/ accepting MD/DO: Hospitalist
Discharge Problem:
Encephalopathy
Interventions
Interventions:
*Risk Screen - Suicide Last Done: 07/06/23 09:52
*General Assessment Last Done: 07/06/23 09:52
*Neglect/Abuse Screening Last Done: 07/06/23 09:52
ED- Fall Risk Assessment Last Done: 07/06/23 16:01
*ED COVID-19 Vaccine History Last Done: 07/06/23 09:52
*Nursing Disposition Last Done: 07/06/23 16:01
ED- Pulmonary Assessment Last Done: 07/06/23 16:01
ED-Psychological Assessment Last Done: 07/06/23 16:01
ED- Neurological Assessment Last Done: 07/06/23 09:52
ED- Cardiac Assessment Last Done: 07/06/23 16:01
ED Swallowing Screen Last Done: 07/06/23 12:50
Discharge Date and Time
Discharge Date/Time: 07/06/23 16:02
--- NOTE | 2023-07-06 16:53 | PTOTSP ---
Dysphagia Evaluation
Patient presents with signs concerning for mild oral/pharyngeal dysphagia. Coughing concerning for aspiration was noted with consecutive drinking of thin liquids as a liquid wash following solids. Patient has acute on chronic risk factors for
dysphagia including current encephalopathy and history of alcohol abuse.
Recommend:
1. IDDSI Level 6 (Soft and Bite Sized), IDDSI Level 0 (Thin Liquids)
2. Medications - whole in puree
3. Supervision given AMS and verbal cues to use strategies
4. Strategies: PO only when awake/alert, small SINGLE sips/bites, slow rate, liquid wash as needed to clear oral cavity
5. Continued dysphagia tx to determine if/when solid advancement is appropriate.
[2023-07-06] MEDS: NOVOLOG FLEXPEN-MODERATE RESISTANCE 5 UNITS SC (17:11)
--- NOTE | 2023-07-06 17:50 | PTCARENOTE ---
Patient received from ER , awake , able to answer questions and follow commands. No SOB, no pain or discomfort. Seen by Speech therapy. Pt is on clear liquid tonite and will be NPO after midnite for test in am . Oriented to room , call traylor in
reach.
[2023-07-06] MEDS: ADVAIR HFA 115/21 MCG INHALER 2 PUFF INH (19:59)
[2023-07-06] MEDS: VITAMIN B1 100 MG PO (21:19)
[2023-07-06] MEDS: ABILIFY 2 MG PO (21:19)
[2023-07-06] MEDS: XIFAXAN 550 MG PO (21:19)
[2023-07-06] MEDS: MINIPRESS 5 MG PO (21:20)
[2023-07-06] MEDS: LANTUS 0.100000000000000006 UNITS SC (21:22)
[2023-07-07] MEDS: DUPHALAC/CHRONULAC 30 GRAMS PO ×6 (03:26→21:49)
[2023-07-07 04:14] VITALS: BMI 35.9
[2023-07-07 07:00] VITALS: BP 139/81
[2023-07-07 07:14] LABS: Glucose - Point of Care 246 mg/dl (70-99)
[2023-07-07] MEDS: SODIUM BICARBONATE 1300 MG PO ×3 (07:42→21:50)
[2023-07-07] MEDS: EFFEXOR XR 37.5 MG PO (07:43)
[2023-07-07] MEDS: XIFAXAN 550 MG PO ×2 (07:43→19:42)
[2023-07-07] MEDS: ZESTRIL 10 MG PO (07:43)
[2023-07-07] MEDS: FOLVITE 1 MG PO (07:43)
[2023-07-07] MEDS: FEOSOL 325 MG PO (07:43)
[2023-07-07] MEDS: VITAMIN C 500 MG PO (07:44)
[2023-07-07] MEDS: VITAMIN B1 100 MG PO ×2 (07:44→19:42)
[2023-07-07] MEDS: EFFEXOR XR 75 MG PO (07:44)
[2023-07-07 07:45] LABS: Hematocrit 23.6 % (39.0-52.0); Hemoglobin 8.5 g/dL (13.0-18.0); Mean Corpuscular Hgb 34.4 pg (27.0-31.0); Mean Corpuscular Volume 95.5 fL (80.0-94.0); Mean Platelet Volume 10.3 fL (7.4-10.4); Platelet Count 34 10^3/uL (130-400); Red Blood Cell Count 2.47 10^6/uL (4.70-6.10); Red Cell Dist. Width 15.1 % (11.5-14.5); White Blood Cell Count 2.6 10^3/uL (4.8-10.8)
[2023-07-07 07:50] LABS: INR 1.67; PT 19.8 Sec (11.4-14.6)
[2023-07-07 07:54] LABS: Glucose - Point of Care 215 mg/dl (70-99)
[2023-07-07] MEDS: NOVOLOG FLEXPEN-MODERATE RESISTANCE 3 UNITS SC (07:54)
[2023-07-07 08:08] LABS: Ammonia 65 umol/L (9-30)
[2023-07-07] MEDS: DUONEB 3 ML INH ×3 (08:18→19:48)
[2023-07-07] MEDS: ADVAIR HFA 115/21 MCG INHALER 2 PUFF INH ×2 (08:18→19:48)
[2023-07-07] MEDS: ALDACTONE 50 MG PO (09:19)
[2023-07-07 09:53] LABS: ALT (SGPT) 64 U/L (0-50); AST (SGOT) 63 U/L (17-59); Albumin 2.1 g/dl (3.5-5.0); Alkaline Phosphatase 76 U/L (38-126); Blood Urea Nitrogen 15 mg/dl (9-20); Calcium 7.9 mg/dl (8.4-10.2); Carbon Dioxide 22 mmol/L (22-30); Chloride 118 mmol/L (98-107); Estimated Creatinine Clearance 93 ml/min; Glucose 156 mg/dl (70-99); Magnesium 1.6 mg/dl (1.6-2.3); Sodium 139 mmol/L (135-145); Total Bilirubin 2.4 mg/dl (0.2-1.3); Total Protein 4.9 g/dl (6.3-8.2); eGFR > 60.00
[2023-07-07 11:00] VITALS: BP 135/62
[2023-07-07 11:30] VITALS: BP 130/70; PULSE 90; PULSE 92
[2023-07-07 11:55] LABS: Glucose - Point of Care 197 mg/dl (70-99)
--- NOTE | 2023-07-07 12:12 | W.PN.HOSP.TC ---
Today's Communication/Plan
-
Monitor vital signs see plan
Continue to monitor mental status
Ultrasound abdomen
Continue with lactulose
Assessment / Plan
Assessment / Plan
General: Well Developed and Well Nourished
HEENT: NormoCephalic, Anicteric, Atraumatic
Respiratory: Clear and Non Labored Respirations
Cardiac: S1/S2 and Regular Rhythm
GI: Soft, Non Tender and Non Distended
Rectal: Deferred by Provider
Musculoskeletal: mild edema
Skin: Warm and Dry
Neuro: calm,lethargy
Confusion likely 2/2 Acute Hepatic Encephalopathy
GI following
cw lactulose; not sure if patient is compliant with
-Trend ammonia level; now 65
-cw dysphagia diet
also started on Xifaxan
Alcoholic Cirrhosis
US abdomen pending
-aldactone restarted
-Continue thiamine and folic acid
Chronic Thrombocytopenia
likely 2/2 cirrhosis
-monitor Plts
hx of Hyponatremia
-Sodium level currently within normal range
History of metabolic acidosis
Continue with sodium bicarb
Anemia of Chronic Disease
-Continue iron supplement
Unclear if has hx of COPD
on duonebs and wixela at home; continue
Diabetes Mellitus, Type II
-HgbA1c 8.8 in Jun 2023
-cw lantus
-Monitors sugar and continue coverage insulin
Essential Hypertension
-Continue lisinopril and prazosin with hold parameters
Depression
-Continue Abilify and Effexor
DVT proph: SCDs
Code Status: Full Code
Anticipated Discharge: > 48 hours
Subjective/Interval History
-
Date of Service: July 07, 2023
Denies abdominal pain
Objective Data
-
Labs:
Laboratory Results
07/07/23
07:21
WBC 2.6 L
Hgb 8.5 L
Hct 23.6 L
Plt Count 34 L D
PT 19.8 H
INR 1.67
Sodium 139
Potassium 4.0
Chloride 118 H
Carbon Dioxide 22
BUN 15
Creatinine 1.2
Glucose 156 H
Calcium 7.9 L
Total Bilirubin 2.4 H
AST 63 H
ALT 64 H
Alkaline Phosphatase 76
Vital Signs:
Vital Signs
Temp Pulse Resp BP Pulse Ox
98.2 F 81 18 135/62 99
07/07/23 11:00 07/07/23 11:00 07/07/23 11:00 07/07/23 11:00 07/07/23 11:00
I&O
07/06/23 07/07/23 07/08/23
06:59 06:59 06:59
Intake Total 360 / 360
Balance 360 / 360
[2023-07-07] MEDS: NOVOLOG FLEXPEN-MODERATE RESISTANCE 1 UNITS SC (13:38)
--- NOTE | 2023-07-07 14:45 | CM ---
Patient seen bedside, initial assessment completed. Patient was falling asleep during assessment. Patient reports he resides at [facility] in [place], patient denies DME, VN, or SNF. Patient reports he has a PCP but does not know who,
patient confirms pharmacy [facility]. CM will continue to follow for discharge planning needs.
Plan; return to [facility] when medically stable.
--- NOTE | 2023-07-07 14:52 | W.PN.GI.CBS2 ---
Today's Communication / Plan
-
continue Lactulose and Xifaxan
possible DC in AM
f/u at the [facility]
ETOH abstinence
Assessment / Plan
-
Pt is a 57yo with hx cirrhosis presents with change in mental status currently at [facility] and noted with lethargy. Pt with recent admission 06/26-07/01 with similar symptoms and concern for encephalopathy with inability to take
lactulose. During that admission ammonia was 128. He returns with ammonia 93. In reviewing with patient sister patient is a and has been through the [facility] system for years with alcohol issues. He in originally from [place] has been in
several rehab program including [facility] in [place] along with recent [facility] in [place], [place] and now [place]. She related he was moved several months ago and noted with ETOH use with 1 day out of the program. He was
evaluated for liver transplant in [place] several years ago but not a candidate due to continued ETOH and tobacco abuse. Sister did not recall hx hep C or prior GI bleeding but does recall prolonged admission in [place] which sounds like ETOH
hepatitis and prolonged ETOH withdrawal.
-hepatic encephalopathy
-cirrhosis
-coagulopathy
-thrombocytopenia
-ETOH abuse
other medical problems:
-anxiety
-chronic back issue with prior narcotic use
-DM
-HTN
-anemia
-restless leg syndrome
-tobacco ause
PLAN:
etiology of hepatic encephalopathy related to medication non compliance, no signs of infection infection, no signs of GI bleed or electrolyte imbalance
agree with lactulose-- change to 30ml Q 4 hour
Also added Xifaxan
Mental status is improved
Alpha-fetoprotein level is normal ultrasound pending but he did have a recent ultrasound that was negative for mass
will need follow up after discharge for repeat EGD for EV screening-- pt has followed at [facility] in past
not candidate for liver transplant in past due to continued ETOH use
cont Aldactone 50mg daily ( was not on lasix prior to admission )
Pancytopenia most likely related to underlying cirrhosis and alcoholism
ETOH and tobacco abstinence
will follow
Subjective
Subjective
Date of Service: July 07, 2023
Patient looks more awake and oriented and alert today. He denies any abdominal pain no rectal bleeding or melena
Objective
Data Reviewed
Laboratory Data:
Laboratory Results
07/07/23 07:21
07/07/23 07:21
Laboratory Results
PT 19.8 Sec (11.4-14.6) H 07/07/23 07:21
INR 1.67 07/07/23 07:21
Magnesium 1.6 mg/dl (1.6-2.3) 07/07/23 07:21
Total Bilirubin 2.4 mg/dl (0.2-1.3) H 07/07/23 07:21
AST 63 U/L (17-59) H 07/07/23 07:21
ALT 64 U/L (0-50) H 07/07/23 07:21
Alkaline Phosphatase 76 U/L (38-126) 07/07/23 07:21
Vital Signs and I&O:
Vital Signs
Temp Pulse Resp BP Pulse Ox
98.2 F 89 16 135/62 100
07/07/23 11:00 07/07/23 13:34 07/07/23 13:34 07/07/23 11:00 07/07/23 13:34
I&O
07/06/23 07/07/23 07/08/23
06:59 06:59 06:59
Intake Total 360 / 360
Balance 360 / 360
Physical Exam
Physical Exam
Cardiology: Normal Sinus Rhythm
Pulmonary: Clear
GI: Soft, Non Distended, Non Tender and Normal Bowel Sounds
[2023-07-07 15:00] VITALS: BP 138/64
--- NOTE | 2023-07-07 16:27 | PTOTSP ---
SPEECH THERAPY SWALLOW FOLLOW UP NOTE:
Patient presents with grossly functional oropharyngeal swallow function at this time. Remains at risk for aspiration and related complications given impulsivity and increased size/rate of intake. Recommend Regular texture diet and thin liquids with
100% supervision/assistance; Aspiration precautions including: small single sips; small bites; slow rate of intake; Meds whole in puree or with liquid as tolerated; upright positioning. Speech therapy to continue to follow, assess diet tolerance and
modify as appropriate, and provide continued education regarding aspiration risks and precautions. Discussed with RN, patient and Dr. Mary.
RECOMMEND:
1) Regular texture diet and thin liquids
2) 100% supervision/assistance
3) Aspiration precautions including: small single sips; small bites; slow rate of intake; Meds whole in puree or with liquid as tolerated; upright positioning
4) Speech therapy to continue to follow, assess diet tolerance and modify as appropriate, and provide continued education regarding aspiration risks and precautions
[2023-07-07 16:39] LABS: Glucose - Point of Care 322 mg/dl (70-99)
[2023-07-07] MEDS: NOVOLOG FLEXPEN-MODERATE RESISTANCE 7 UNITS SC (16:40)
[2023-07-07 19:00] VITALS: BP 144/73
[2023-07-07] MEDS: ABILIFY 2 MG PO (21:48)
[2023-07-07] MEDS: MINIPRESS 5 MG PO (21:49)
[2023-07-07 21:51] LABS: Glucose - Point of Care 230 mg/dl (70-99)
[2023-07-07] MEDS: LANTUS 0.149999999999999994 UNITS SC (21:51)
[2023-07-07 22:30] VITALS: BP 162/78
[2023-07-08] MEDS: DUPHALAC/CHRONULAC 30 GRAMS PO ×3 (02:44→09:17)
[2023-07-08 03:00] VITALS: BP 154/70
[2023-07-08 05:16] VITALS: BMI 36.0
[2023-07-08 07:00] VITALS: BP 147/63
[2023-07-08] MEDS: ADVAIR HFA 115/21 MCG INHALER 2 PUFF INH (07:31)
[2023-07-08] MEDS: DUONEB 3 ML INH (07:31)
[2023-07-08 07:48] LABS: Glucose - Point of Care 208 mg/dl (70-99)
[2023-07-08] MEDS: NOVOLOG FLEXPEN-MODERATE RESISTANCE 3 UNITS SC (08:18)
[2023-07-08] MEDS: ALDACTONE 50 MG PO (08:18)
[2023-07-08] MEDS: EFFEXOR XR 75 MG PO (08:18)
[2023-07-08] MEDS: XIFAXAN 550 MG PO (08:18)
[2023-07-08] MEDS: FEOSOL 325 MG PO (08:19)
[2023-07-08] MEDS: FOLVITE 1 MG PO (08:19)
[2023-07-08] MEDS: VITAMIN B1 100 MG PO (08:19)
[2023-07-08] MEDS: SODIUM BICARBONATE 1300 MG PO (08:19)
[2023-07-08] MEDS: VITAMIN C 500 MG PO (08:19)
[2023-07-08] MEDS: ZESTRIL 10 MG PO (08:19)
[2023-07-08] MEDS: EFFEXOR XR 37.5 MG PO (08:19)
[2023-07-08 08:27] LABS: % Basophils 1.2 % (0-2); % Eosinophils 3.1 % (0-6); % Immature Granulocytes 0.4 % (0-0.5); % Monocytes 10.8 % (1.7-9.3); % Neutrophils 45.5 % (42.2-75.2); Absolute Eosinophils 0.1 10^3/uL (0-0.7); Absolute Monocytes 0.3 10^3/uL (0.1-0.6); Absolute Neutrophils 1.2 10^3/uL (1.4-6.5); Hematocrit 25.4 % (39.0-52.0); Hemoglobin 9.1 g/dL (13.0-18.0); Mean Corp Hgb Conc. 35.8 g/dL (33.0-37.0); Mean Corpuscular Hgb 34.6 pg (27.0-31.0); Mean Corpuscular Volume 96.6 fL (80.0-94.0); Mean Platelet Volume 10.6 fL (7.4-10.4); Nucleated Red Blood Cells % 0 % (-); Platelet Count 30 10^3/uL (130-400); Red Blood Cell Count 2.63 10^6/uL (4.70-6.10); Red Cell Dist. Width 15.1 % (11.5-14.5); White Blood Cell Count 2.6 10^3/uL (4.8-10.8)
[2023-07-08 08:53] LABS: ALT (SGPT) 63 U/L (0-50); AST (SGOT) 57 U/L (17-59); Albumin 2.3 g/dl (3.5-5.0); Alkaline Phosphatase 81 U/L (38-126); Blood Urea Nitrogen 15 mg/dl (9-20); Calcium 7.8 mg/dl (8.4-10.2); Carbon Dioxide 20 mmol/L (22-30); Chloride 113 mmol/L (98-107); Estimated Creatinine Clearance 93 ml/min; Glucose 184 mg/dl (70-99); Potassium 3.7 mmol/L (3.5-5.1); Sodium 134 mmol/L (135-145); Total Bilirubin 1.8 mg/dl (0.2-1.3); Total Protein 5.3 g/dl (6.3-8.2); eGFR > 60.00
[2023-07-08 09:35] LABS: Ammonia 51 umol/L (9-30)
--- NOTE | 2023-07-08 10:13 | W.PN.GI.CBS2 ---
Addendum entered and electronically signed by DEV Bennett 07/08/23 10:45:
also reviewed home meds was on 30mg/45ml (10gram/15ml) TID at home
Addendum entered and electronically signed by DEV Bennett 07/08/23 10:37:
reviewed dosing with pharmacy will change to 40ml (30gram) TID
Original Note:
Today's Communication / Plan
-
etiology of hepatic encephalopathy related to medication non compliance, no signs of infection infection, no signs of GI bleed or electrolyte imbalance
pt admits to taking lactulose BID but may have been ordered TID
change back to Lactulose 45mg TID and Xifaxan
mental status remains intact
AFP stable no mass on US
[facility]
per patient last ETOH 5 years ago -- will need hepatology reassessment for transplant candidancy-- last [facility] was not candidate with ETOH use
cont Aldactone 50mg daily ( was not on lasix prior to admission )
Pancytopenia most likely related to underlying cirrhosis and alcoholism
ETOH and tobacco abstinence
stable from GI for discharge with close [facility] follow up
Assessment / Plan
-
Pt is a 57yo with hx cirrhosis presents with change in mental status currently at [facility] recovery center and noted with lethargy. Pt with recent admission 06/26-07/01 with similar symptoms and concern for encephalopathy with inability to take
lactulose. During that admission ammonia was 128. He returns with ammonia 93. In reviewing with patient sister patient is a and [facility] with [facility] issues. He in originally from [place] has been in
several rehab program including [facility] in [place] along with [facility] in [place], [place] and now [place]. She related he was moved several months ago and noted with ETOH use with 1 day out of the program. He was
evaluated for liver transplant in [place] several years ago but not a candidate due to continued ETOH and tobacco abuse. Sister did not recall hx hep C or prior GI bleeding but does recall prolonged admission in [place] which sounds like ETOH
hepatitis and prolonged ETOH withdrawal.
-hepatic encephalopathy
-cirrhosis
-coagulopathy
-thrombocytopenia
-ETOH abuse
other medical problems:
-anxiety
-chronic back issue with prior narcotic use
-DM
-HTN
-anemia
-restless leg syndrome
-tobacco abuse
PLAN:
etiology of hepatic encephalopathy related to medication non compliance, no signs of infection infection, no signs of GI bleed or electrolyte imbalance
pt admits to taking lactulose BID but may have been ordered TID
change back to Lactulose 45mg TID and Xifaxan
mental status remains intact
AFP stable no mass on US
[facility]
per patient last ETOH 5 years ago -- will need hepatology reassessment for transplant candidancy-- last eval [place] was not candidate with ETOH use
cont Aldactone 50mg daily ( was not on lasix prior to admission )
Pancytopenia most likely related to underlying cirrhosis and alcoholism
ETOH and tobacco abstinence
stable from GI for discharge with close [facility] follow up
Subjective
Subjective
Date of Service: July 08, 2023
several stools per nursing, on ADA diet
Objective
Data Reviewed
Laboratory Data:
Laboratory Results
07/08/23 08:01
07/08/23 08:01
Laboratory Results
PT 19.8 Sec (11.4-14.6) H 07/07/23 07:21
INR 1.67 07/07/23 07:21
Magnesium 1.6 mg/dl (1.6-2.3) 07/07/23 07:21
Total Bilirubin 1.8 mg/dl (0.2-1.3) H 07/08/23 08:01
AST 57 U/L (17-59) 07/08/23 08:01
ALT 63 U/L (0-50) H 07/08/23 08:01
Alkaline Phosphatase 81 U/L (38-126) 07/08/23 08:01
Vital Signs and I&O:
Vital Signs
Temp Pulse Resp BP Pulse Ox
97.7 F 80 14 147/63 97
07/08/23 07:00 07/08/23 08:19 07/08/23 07:35 07/08/23 08:19 07/08/23 07:35
I&O
07/07/23 07/08/23 07/09/23
06:59 06:59 06:59
Intake Total 360 / 360 600 / 600
Balance 360 / 360 600 / 600
Physical Exam
Physical Exam
HEENT: Anicteric and Moist mucous membranes
Cardiology: Normal Sinus Rhythm
Pulmonary: Clear
GI: Soft, Non Distended and Non Tender
Extremities: No Edema
Neuro: Non Focal and Other (much improved since admission, no asterixis )
--- NOTE | 2023-07-08 10:58 | CM ---
Addendum entered by Anuradha Wilson 07/08/23 11:30:
CM spoke with Ksenia from [facility] [phone], passed information along that patient will be ready for discharge today around 2:00 p.m. Patient seen, updated with discharge time.
Original Note:
CM spoke with Jonas Napoles from [facility], emailed consent form and patients medlist, placed on patients chart. CM received call from Valery from the [facility] [phone] ext [phone], requested Hospitalist contact
information in regards to patient transferring to [facility]. Per Hospitalist, patient for discharge today. CM spoke with Valery, discussed disharged, requested information for outpatient hematology appointment for patient, Valery will call back
with contact information. CM spoke with Jonas from [facility], requesting call when patient is ready for discharge so someone can transport patient home. CM will continue to follow for discharge planning needs.
Plan; return to [facility], no needs.
[2023-07-08 11:00] VITALS: BP 152/81
--- NOTE | 2023-07-08 11:04 | W.PN.HOSP.TC ---
Today's Communication/Plan
-
Monitor vital signs
See plan
Mental status now back to baseline, discharge today
Continue with lactulose
Continue Xifaxan
Spoke with GI and patient is okay to be discharged from their standpoint
Time of discharge 37 minutes
Assessment / Plan
Assessment / Plan
General: Well Developed and Well Nourished
HEENT: NormoCephalic, Anicteric, Atraumatic
Respiratory: Clear and Non Labored Respirations
Cardiac: S1/S2 and Regular Rhythm
GI: Soft, Non Tender and Non Distended
Rectal: Deferred by Provider
Musculoskeletal: mild edema
Skin: Warm and Dry
Neuro: calm
Confusion likely 2/2 Acute Hepatic Encephalopathy
now resolved
GI following
cw lactulose; not sure if patient is compliant with
-Trend ammonia level; now 51
-cw dysphagia diet
also started on Xifaxan
Alcoholic Cirrhosis
US abdomen with cirrhosis, portal hypertension. Suspect chronic cholecystitis
-aldactone restarted
-Continue thiamine and folic acid
Chronic Thrombocytopenia
likely 2/2 cirrhosis
-monitor Plts
hx of Hyponatremia
-Sodium level currently within normal range
History of metabolic acidosis
Continue with sodium bicarb
Anemia of Chronic Disease
-Continue iron supplement
Unclear if has hx of COPD
on duonebs and wixela at home; continue
Diabetes Mellitus, Type II
-HgbA1c 8.8 in Jun 2023
-cw lantus
-Monitors sugar and continue coverage insulin
Essential Hypertension
-Continue lisinopril and prazosin with hold parameters
Depression
-Continue Abilify and Effexor
DVT proph: SCDs
Code Status: Full Code
Anticipated Discharge: Today
Subjective/Interval History
-
Date of Service: July 08, 2023
denies pain
Objective Data
-
Labs:
Laboratory Results
07/08/23
08:01
WBC 2.6 L
Hgb 9.1 L
Hct 25.4 L
Plt Count 30 L
Sodium 134 L
Potassium 3.7
Chloride 113 H
Carbon Dioxide 20 L
BUN 15
Creatinine 1.2
Glucose 184 H
Calcium 7.8 L
Total Bilirubin 1.8 H
AST 57
ALT 63 H
Alkaline Phosphatase 81
Vital Signs:
Vital Signs
Temp Pulse Resp BP Pulse Ox
97.7 F 80 14 147/63 97
07/08/23 07:00 07/08/23 08:19 07/08/23 07:35 07/08/23 08:19 07/08/23 07:35
I&O
07/07/23 07/08/23 07/09/23
06:59 06:59 06:59
Intake Total 360 / 360 600 / 600
Balance 360 / 360 600 / 600
--- NOTE | 2023-07-08 11:16 | W.DCSUMMARY ---
Discharge Summary
Discharge Data
Date of Admission: 07/06/23
Date of Discharge: 07/08/23
-
Pending Results: No
Hospital Course
57-year-old male with past medical history of liver cirrhosis, anemia of chronic disease, suspected COPD, type 2 diabetes mellitus, essential hypertension, depression, thrombocytopenia came to the hospital with confusion which was likely thought was
secondary to acute hepatic encephalopathy. Patient ammonia was very elevated on admission which was likely was cause for his confusion. He was put on lactulose and then his ammonia started to improve. His discharge ammonia was 51. His mental
status continue to improve. He was also seen by gastroenterology throughout hospitalization. He was started on Xifaxan. Ultrasound was done which was consistent with cirrhosis, portal hypertension. It also showed possible chronic cholecystitis.
Patient platelets were also low on this hospitalization which was thought was secondary to cirrhosis. Patient was seen by physical therapy who recommended home. Once his mentation improved GI thought patient could go from their standpoint.
Patient was then discharged with instructions to follow-up with all his physicians at [facility] outpatient.
Discharge Plan
-
Patient Disposition: Other
Discharge Diagnosis/Procedures: Confusion secondary to acute hepatic encephalopathy
Cirrhosis
Thrombocytopenia
Condition: Good
Diet: As tolerated
Activity: As tolerated
Driving Restrictions: As prior to admission
Bathing Restrictions: None
Blood Work: CBC next week at [facility]
Others Tests: Follow up with CT hepatology for continued liver disease management
Referrals:
UNKNOWN,NO INTERVIEW [Family Provider] - in less than 1 week
Prescriptions:
New
thiamine HCl (vitamin B1) 100 mg Tablet
100 mg PO BID Qty: 0 0RF
folic acid 1 mg Tablet
1 mg PO DAILY Qty: 0 0RF
Xifaxan 550 mg Tablet
550 mg PO BID Qty: 60 0RF
Continued
fluticasone propion-salmeterol [Wixela Inhub] 250-50 mcg/dose Blister With Device
1 inh INHALATION R BID
ipratropium-albuterol 0.5 mg-3 mg(2.5 mg base)/3 mL Solution For Nebulization
3 ml INHALATION R TID
prazosin 5 mg Capsule
5 mg PO HS
ascorbic acid (vitamin C) [Vitamin C] 500 mg Tablet
500 mg PO DAILY
ferrous sulfate 325 mg (65 mg iron) Tablet
325 mg PO DAILY
lisinopril 10 mg Tablet
10 mg PO DAILY
docusate sodium 100 mg Capsule
100 mg PO BID
insulin aspart U-100 [Novolog FlexPen U-100 Insulin] 100 unit/mL (3 mL) Insulin Pen
0 sliding scale dose SC ACHS
Rx Instructions:
07/06/2023, 130 = 2 units; 180 = 4 units; 230 = 6 units; 280 = 8 units; 330 = 10 units; 380 = 12 units; over 400 call SYNOPTIC METEOROLOGIST.
diclofenac sodium 1 % Gel
1 g TOPICAL DAILYPRN PRN (Reason: apply to B/L knees)
aripiprazole 2 mg Tablet
2 mg PO HS Qty: 30 2RF
sodium bicarbonate 650 mg Tablet
1,300 mg PO TID Qty: 90 0RF
lactulose 10 gram/15 mL Solution
45 ml PO TID Qty: 0 0RF
Rx Instructions:
HOLD FURTHER DOSE IF HAVE 3 BOWEL MOVEMENTS FOR THE DAY
spironolactone 100 mg Tablet
50 mg PO DAILY Qty: 0 0RF
venlafaxine [Effexor XR] 37.5 mg capsule,extended release 24hr
37.5 mg PO DAILY
venlafaxine 75 mg capsule,extended release 24hr
75 mg PO DAILY
insulin glargine [Basaglar KwikPen U-100 Insulin] 100 unit/mL (3 mL) insulin pen
17 unit SC HS
Changed
insulin aspart U-100 [Novolog FlexPen U-100 Insulin] 100 unit/mL (3 mL) insulin pen
5 unit SC AC Qty: 0 0RF
Discharge Orders:
Discharge Patient (As Directed); Ordered 07/08/23
Ordered By: Jose Ramon Mary
Discharge Date and Time
Discharge Date/Time: 07/08/23 14:08
[2023-07-08 11:29] LABS: Glucose - Point of Care 266 mg/dl (70-99)
[2023-07-08] MEDS: NOVOLOG FLEXPEN-MODERATE RESISTANCE 5 UNITS SC (12:05)
[2023-07-08] MEDS: DUONEB INH (13:34)
[2023-07-08 20:57] LABS: Hepatitis B Surface Antigen Negative (Negative)
[2023-07-08 21:03] LABS: Hepatitis B Core Ab, IgM Negative (Negative)
[2023-07-08 21:15] LABS: Hepatitis B Core Ab, Total Negative (Negative); Hepatitis B Surface Antibody Positive; Hepatitis C Antibody Negative (Negative)
[2023-07-08 21:20] LABS: Hepatitis A Antibody, Total Positive (Negative)
== END 2023-07-08 14:08 | DRG 442 ==
LOC: 4 WEST ACU 14:33
PROVIDERS: Nurse Practitioner Adult Health; Physician Assistant Medical; ADMITTING PHYSICIAN Internal Medicine; CONSULT PHYSICIAN Internal Medicine Gastroenterology; EMERGENCY PHYSICIAN Emergency Medicine
DX: K76.82 Hepatic encephalopathy (principal); D61.818 Other pancytopenia; E87.1 Hypo-osmolality and hyponatremia; D68.9 Coagulation defect, unspecified; K76.6 Portal hypertension; K70.30 Alcoholic cirrhosis of liver without ascites; E11.9 Type 2 diabetes mellitus without complications; I10 Essential (primary) hypertension; F10.10 Alcohol abuse, uncomplicated; K21.9 Gastro-esophageal reflux disease without esophagitis; D63.8 Anemia in other chronic diseases classified elsewhere; D69.6 Thrombocytopenia, unspecified; E86.9 Volume depletion, unspecified; I44.0 Atrioventricular block, first degree; F32.A Depression, unspecified; K81.1 Chronic cholecystitis; F41.9 Anxiety disorder, unspecified; G89.29 Other chronic pain; F11.21 Opioid dependence, in remission; G25.81 Restless legs syndrome; Z91.030 Bee allergy status; Z79.51 Long term (current) use of inhaled steroids; Z79.4 Long term (current) use of insulin; Z91.85 Personal history of military service; Z87.891 Personal history of nicotine dependence; Z82.5 Family history of asthma and other chronic lower respiratory diseases; Z82.3 Family history of stroke; Z91.148 Patient's other noncompliance with medication regimen for other reason
CPT/HCPCS: 70450; 71045; 76700; 80053; 80306; 81003; 82077; 82105; 82140; 82962; 83735; 85025; 85027; 85610; 86704; 86705; 86706; 86708; 86803; 87040; 87070; 87340; 92526; 92610; 93005; 94640; 96361; 96372; 96374; 96375; 97162; 97166; 99291

== ENCOUNTER 2023-07-14 13:33 | Inpatient (IN) | payer OTHER, SELFPAY ==
[2023-07-14] VITALS (7 sets, daily range): BP systolic 105–137; BP diastolic 61–76
--- NOTE | 2023-07-14 09:40 | ED.GENMED ---
History of Present Illness
General
Chief Complaint: Change in Mental Status
Exam Limitations: none
Time Seen by Provider: 07/14/23 09:31
Nursing documentation reviewed up to this point in time: agreed with
History of Present Illness
History of Present Illness:
Patient is a 57-year-old male with history of cirrhosis anemia chronic disease hypertension diabetes thrombocytopenia COPD who presents to the ER for evaluation. Patient is from alcohol recovery house was brought by EMS for increased confusion for
the past several weeks.
Patient was recently admitted to 07/06- for hepatic encephalopathy with with an elevated ammonia.
Patient arrives confused able to state name.Does not follow commands
Phy Exam
General Physical Exam
General Presentation: no apparent distress
General age: appears stated age
General Skin: warm and dry
General Habitus: normal
General Mental: alert
General Hydration: dry mucous membranes
Cardiovascular Exam
Cardiovascular Exam: regular rate/rhythm, no murmur and normal peripheral pulses
Pulmonary Exam
Pulmonary Exam: lungs clear and no respiratory distress
Neurological Exam
Neurological Exam: no motor deficits and other ( pt attempts to answers questions at times )
Musculoskeletal Exam
Musculoskeletal Exam: full ROM
Skin Exam
Skin Exam: warm/dry and jaundice
Psychiatric Exam
Psychiatric Exam: normal mood/affect
Course
Orders/Labs/Results
Orders:
Orders
07/14/23 09:47
Alcohol Urgent
Alcohol, Urine Screen/Quant [S] Urgent
Date Specimen was Collected: 07/14/23
Time Specimen was Collected: 09:46
Ammonia Urgent
Complete Blood Count/With Diff Urgent
Comprehensive Metabolic Panel Urgent
Direct Bilirubin Urgent
Comment: ADD ON
Lipase Urgent
Prothrombin Time Urgent
07/14/23 09:48
Urine Culture Reflexed from UA [Urinalysis Reflex To Culture] Urgent
Date Specimen was Collected: 07/14/23
Time Specimen was Collected: 09:46
07/14/23 10:13
CT Head W/o Iv Contrast Urgent
Comment:
Reason For Exam: ms changes
07/14/23 12:30
Add On- LAB Routine
Tests Added?: direct bilirubin
07/14/23 12:55
Lactulose Enema 300 ml RECTAL NOW STA
07/14/23 13:01
Admit/Transfer Patient As Directed
Co-Sign Provider:
Level of Care: Inpatient admission
Assign to:: Medical/Surgical
Physician / Group: tess
Diagnosis: hepatic encephalophaty
Reason for Hospitalization: hepatic encephalopathy
Expected length of stay greater than two midnights?: Yes
ELOS- Estimated Length of Stay in days: 3
I certify the patient meets the requirements for IP care: Yes
07/14/23 13:03
Code Status As Directed
Resuscitation Status: Full Code
07/14/23 14:00
Lactulose Enema 300 ml RECTAL Q4H
Abnormal Lab Results
07/14/23
09:47
WBC 2.7 L 10^3/uL
(4.8-10.8)
RBC 3.08 L 10^6/uL
(4.70-6.10)
Hgb 10.7 L g/dL
(13.0-18.0)
Hct 30.0 L %
(39.0-52.0)
MCV 97.4 H fL
(80.0-94.0)
MCH 34.7 H pg
(27.0-31.0)
RDW 15.4 H %
(11.5-14.5)
Plt Count 59 L D 10^3/uL
(130-400)
Absolute Neuts (auto) 1.2 L 10^3/uL
(1.4-6.5)
Absolute Lymphs (auto) 1.1 L 10^3/uL
(1.2-3.4)
Monocytes % 9.8 H %
(1.7-9.3)
PT 17.1 H Sec
(11.4-14.6)
Chloride 112 H mmol/L
(98-107)
Glucose 157 H mg/dl
(70-99)
Total Bilirubin 2.4 H mg/dl
(0.2-1.3)
Direct Bilirubin 0.6 H mg/dl
(0.0-0.4)
AST 92 H U/L
(17-59)
ALT 69 H U/L
(0-50)
Ammonia 147 H umol/L
(9-30)
Albumin 3.1 L g/dl
(3.5-5.0)
Lipase 826 H U/L
(23-300)
07/14/23 09:47
07/14/23 09:47
Vital Signs
Initial and Last Documented VS:
Initial Vital Signs
Pulse Resp BP Pulse Ox
71 13 128/61 100
07/14/23 09:30 07/14/23 09:30 07/14/23 09:30 07/14/23 09:30
Last Documented Vital Signs
Temp Pulse Resp BP Pulse Ox
97.7 F 64 11 137/62 100
07/14/23 09:52 07/14/23 11:45 07/14/23 11:45 07/14/23 12:00 07/14/23 12:00
MDM/Problems Addressed
Differential Diagnosis Includes:
Not limited to hepatic encephalopathy dehydration electrolyte abnormality
MDM/Problems Addressed:
Patient is a 57-year-old male with history of alcohol use alcohol cirrhosis with ascites encephalopathy hepatic presents from alcohol recovery house with increased confusion for the past couple weeks. Patient was recently admitted July 06
discharged June for elevated ammonia and hepatic encephalopathy. There is a questionable none .compliance with medications. Patient presents here confused minimally answers questions. Ammonia elevated at 147. Patient otherwise with stable
labs unchanged. Platelets are 59,000 June were 30,000. White count baseline 2.7 hemoglobin medically stable normal BUN and creatinine. Bilirubin 2.4 slight increase from June. Case reviewed with JIMY Becerra who recommends
lactulose enemas every 4 hours will admit. Attempted to call sisterMindy however no answer. Urinalysis negative CT unremarkable
Chronic conditions affecting care:
Alcoholic cirrhosis
*Radiology
Radiology exam reviewed: radiology read reviewed
*Pulse Oximetry
Patient hypoxic: no
*Critical Care Note
Total Time (30-74mins, 75-104mins- exclusive of procedures): Not Applicable
Patient Management
Discussion with other providers: Vending Machine Attendant (JIMY Becerra )
ED Attending Note
-
Portions of this chart may have been created with voice recognition software.� Occasional wrong word or��sound alike� substitutions may have occurred due to the inherent limitations of voice recognition software.
Discharge Plan
Departure
Patient Disposition: Admit
Date of Disposition: 07/14/23
Time of Disposition: 12:29
Admit to: Med/Surg
Admit to doctor: hospitalist
Presentation/result/management discussed w/ accepting MD/DO: Hospitalist
Patient with high blood pressure during this ER visit?: Yes
Condition: Fair
Covid-19: Not Applicable
Discharge Problem:
Acute hepatic encephalopathy
Interventions
Interventions:
*Risk Screen - Suicide Last Done: 07/14/23 09:30
*General Assessment Last Done: 07/14/23 09:30
*Neglect/Abuse Screening Last Done: 07/14/23 09:30
ED- Fall Risk Assessment Last Done: 07/14/23 09:58
*ED COVID-19 Vaccine History Last Done: 07/14/23 09:30
ED- Pulmonary Assessment Last Done: 07/14/23 09:58
ED- Neurological Assessment Last Done: 07/14/23 09:53
ED- Cardiac Assessment Last Done: 07/14/23 09:58
ED Swallowing Screen Last Done: 07/14/23 09:58
[2023-07-14 10:05] LABS: % Basophils 0.8 % (0-2); % Eosinophils 4.5 % (0-6); % Immature Granulocytes 0.4 % (0-0.5); % Monocytes 9.8 % (1.7-9.3); % Neutrophils 44.5 % (42.2-75.2); Absolute Eosinophils 0.1 10^3/uL (0-0.7); Absolute Lymphocytes 1.1 10^3/uL (1.2-3.4); Absolute Monocytes 0.3 10^3/uL (0.1-0.6); Absolute Neutrophils 1.2 10^3/uL (1.4-6.5); Hemoglobin 10.7 g/dL (13.0-18.0); Mean Corp Hgb Conc. 35.7 g/dL (33.0-37.0); Mean Corpuscular Hgb 34.7 pg (27.0-31.0); Mean Corpuscular Volume 97.4 fL (80.0-94.0); Mean Platelet Volume 9.8 fL (7.4-10.4); Nucleated Red Blood Cells % 0 % (-); Platelet Count 59 10^3/uL (130-400); Red Blood Cell Count 3.08 10^6/uL (4.70-6.10); Red Cell Dist. Width 15.4 % (11.5-14.5); White Blood Cell Count 2.7 10^3/uL (4.8-10.8)
[2023-07-14 10:09] LABS: Urine Albumin Negative (Neg - Trace); Urine Bilirubin Negative (Negative); Urine Character Clear (Clear); Urine Color Yellow; Urine Glucose Negative (Negative); Urine Ketone Negative (Negative); Urine Leukocyte Negative (Negative); Urine Nitrite Negative (Negative); Urine Occult Blood Negative (Negative); Urine Urobilinogen Negative (Neg - 1+)
[2023-07-14 10:17] LABS: INR 1.39; PT 17.1 Sec (11.4-14.6)
[2023-07-14 10:19] LABS: Ammonia 147 umol/L (9-30)
[2023-07-14 10:22] LABS: ALT (SGPT) 69 U/L (0-50); AST (SGOT) 92 U/L (17-59); Albumin 3.1 g/dl (3.5-5.0); Alkaline Phosphatase 102 U/L (38-126); Blood Urea Nitrogen 18 mg/dl (9-20); Calcium 8.9 mg/dl (8.4-10.2); Carbon Dioxide 22 mmol/L (22-30); Chloride 112 mmol/L (98-107); Glucose 157 mg/dl (70-99); Lipase 826 U/L (23-300); Potassium 4.5 mmol/L (3.5-5.1); Sodium 137 mmol/L (135-145); Total Bilirubin 2.4 mg/dl (0.2-1.3); Total Protein 6.6 g/dl (6.3-8.2); eGFR > 60.00
[2023-07-14 10:30] LABS: Alcohol None Detected
--- NOTE | 2023-07-14 12:31 | HPS.HSE ---
Addendum entered and electronically signed by Jasbir Mead DO 07/14/23 13:37:
Patient seen and examined and discussed with BELT NOTCHER Horacio, and agree with her note.
Gen-sleepy but arousable, does not want to be bothered.
HEENT-NC, AT, anicteric, clear oral mm
Neck-supple
CV-reg, no M, +S1/S2
Lungs-clear B/L
Abd-soft, NT, ND
Ext-bilateral lower extremity edema.
Musculoskeletal-no cyanosis, clubbing
Skin-warm and dry
Recurrent hepatic encephalopathy -suspect related to noncompliance with medications. This will be his third admission in the past 2 to 3 weeks. Admit to MedSurg. Lactulose enemas per gastroenterology. Resume rifaximin when able to take p.o.
Consult gastroenterology. Serum ammonia 147. No obvious evidence of infection.
Chronic pancytopenia -likely due to underlying cirrhosis. Counts are stable.
Chronic alcoholic cirrhosis
History of alcohol dependence -reportedly sober for several years now.
Essential hypertension -stable.
DM2 with hyperglycemia -hemoglobin A1c was 8.8% on 06/27/2023. Resume Lantus at home dose. Resume aspart when he is more awake and eating. Use low resistance NovoLog scale.
Restless leg syndrome
COPD without exacerbation -he is on fluticasone propionate/salmeterol inhaler twice daily. As needed DuoNebs.
Obesity due to excess calories
Full code
Original Note:
Family Physician
-
Family Physician: NO INTERVIEW UNKNOWN
Chief Complaint
-
confusion
History of Present Illness
57-year-old male with history of cirrhosis, anemia chronic disease, hypertension, diabetes, thrombocytopenia, COPD from alcohol recovery place with confusion. patient was just discharged from here on 07/05/2023. denied any acute pain. he can responds
saying no and I don't know to any questions. ROS is limited.
on arrival noted elevated ammonia level. lactulose ordered. admitting for further managment.
Medical History
Past Medical History
Past Medical History: Reports Other
Additional Past Medical History:
type 2 DM
depression
HTN
alcohol abuse
cirrhosis
portal htn
Past Surgical History: Reports None
Social History
Alcohol: Chronic Alcoholic
Family History
Family History: Not pertinent
Allergies / Home Medications
Allergies reflects when Allergies were last updated in [employer].
Home Medications with original date entered in [employer]
Allergy/Medication List:
Allergies
Allergy/AdvReac Type Severity Reaction Status Date / Time
bee venom protein (honey bee) Allergy Unknown Verified 06/26/23 18:07
Home Medications
ascorbic acid (vitamin C) 500 mg tablet (Vitamin C) 500 mg PO DAILY Supplement 06/26/23
diclofenac sodium 1 % topical gel 1 g topical DAILYPRN PRN apply to B/L knees 06/26/23
docusate sodium 100 mg capsule 100 mg PO BID Constipation 06/26/23
ferrous sulfate 325 mg (65 mg iron) tablet 325 mg PO DAILY Supplement 06/26/23
fluticasone 250 mcg-salmeterol 50 mcg/dose blistr powdr for inhalation (Wixela Inhub) 1 inh inhalation R BID Lung/Breathing Issues 06/26/23
insulin aspart U-100 100 unit/mL (3 mL) subcutaneous pen (Novolog FlexPen U-100 Insulin aspart) 0 sliding scale dose SC ACHS Diabetes 06/26/23
ipratropium 0.5 mg-albuterol 3 mg (2.5 mg base)/3 mL nebulization soln 3 ml inhalation R TID Lung/Breathing Issues 06/26/23
lisinopril 10 mg tablet 10 mg PO DAILY Blood Pressure 06/26/23
prazosin 5 mg capsule 5 mg PO HS Blood Pressure 06/26/23
aripiprazole 2 mg tablet 2 mg PO HS Mental Health/Anxiety #30 tabs 07/01/23
lactulose 10 gram/15 mL oral solution 45 ml PO TID Liver Issues #0 mL 07/01/23
sodium bicarbonate 650 mg tablet 1,300 mg PO TID Acidosis #90 tabs 07/01/23
spironolactone 100 mg tablet 50 mg PO DAILY Liver Issues #0 tabs 07/01/23
insulin glargine 100 unit/mL (3 mL) subcutaneous pen (Basaglar KwikPen U-100 Insulin) 17 unit SC HS diabetes 07/06/23
venlafaxine 37.5 mg capsule,extended release 24 hr (Effexor XR) 37.5 mg PO DAILY depression 07/06/23
venlafaxine 75 mg capsule,extended release 24 hr 75 mg PO DAILY depression 07/06/23
folic acid 1 mg tablet 1 mg PO DAILY #0 tabs 07/08/23
insulin aspart U-100 100 unit/mL (3 mL) subcutaneous pen (Novolog FlexPen U-100 Insulin aspart) 5 unit (0.05 mL) SC AC diabetes #0 mL 07/08/23
rifaximin 550 mg tablet (Xifaxan) 550 mg PO BID #60 tabs 07/08/23
thiamine HCl (vitamin B1) 100 mg tablet 100 mg PO BID #0 tabs 07/08/23
Review of Systems
-
Constitutional: Reports No Symptoms
EENT: Reports No Symptoms
Respiratory: Reports No Symptoms
Cardiac: Reports No Symptoms
Abdomen/GI: Reports No Symptoms
: Reports No Symptoms
Musculoskeletal: Reports No Symptoms
Skin: Reports No Symptoms
Neurological: Reports No Symptoms
Endocrine: Reports No Symptoms
Hematologic/Lymphatic: Reports No Symptoms
Psych: Reports No Symptoms
Physical Exam
Vital Signs
Vital Signs
Temp Pulse Resp BP Pulse Ox
97.7 F 64 11 137/62 100
07/14/23 09:52 07/14/23 11:45 07/14/23 11:45 07/14/23 12:00 07/14/23 12:00
Physical Exam
General: Well Developed, Well Nourished and No Apparent Distress
HEENT: NormoCephalic, Moist mucous membranes and Atraumatic
Respiratory: Clear
Cardiac: S1/S2 and Regular Rhythm; No Murmur or Rub
GI: Soft, Non Tender, Non Distended and Normal Bowel Sounds; No Organomegaly
Rectal: Deferred by Provider
Musculoskeletal: No Clubbing, No Cyanosis and No Edema
Skin: No Rash
Psych: Calm
Laboratory Results
-
07/14/23 09:47
07/14/23 09:47
Laboratory Results
PT 17.1 Sec (11.4-14.6) H 07/14/23 09:47
INR 1.39 07/14/23 09:47
Total Bilirubin 2.4 mg/dl (0.2-1.3) H 07/14/23 09:47
AST 92 U/L (17-59) H 07/14/23 09:47
ALT 69 U/L (0-50) H 07/14/23 09:47
Alkaline Phosphatase 102 U/L (38-126) 07/14/23 09:47
Lipase 826 U/L (23-300) H 07/14/23 09:47
Data Reviewed
-
Diagnostic Radiology: Report Reviewed by me
Lab Data: Labs Reviewed by me
Impression/Plan
-
# Confusion likely hepatic encephalopathy
-Ammonia 147
-ast 92,alt 69,lipase 826
-Lactulose enema every [address] head negative
-UA negative
-trend ammonia
-GI consulted
# Pancytopenia likely secondary to cirrhosis/portal hypertension
-WBC 2.7, hemoglobin 10.7, platelets 59
-ctm
-Ferrous sulfate continued for anemia
#hxt of alcohol abuse
-thiamine an folic acid continued
# History of cirrhosis, portal hypertension
-Spironolactone continued
#hx of COPD
on duonebs and wixela at home; continue
#Diabetes Mellitus, Type II
-HgbA1c 8.8 in Jun 2023
-cw lantus 17 units at bedtime
-Monitors sugar and continue coverage insulin
-Insulin 5 units with meals
#Essential Hypertension
-Continue lisinopril and prazosin with hold parameters
#Depression
-Continue Abilify and Effexor
#DVT proph: Lovenox
#Code Status: Full Code
[2023-07-14] MEDS: LACTULOSE ENEMA 300 ML RECTAL ×2 (13:20→22:10)
--- NOTE | 2023-07-14 13:39 | PHANOTE ---
07/14/2023, med rec tech, used discharge paperwork from 07/08/2023 to compile list of pt.'s meds.
--- NOTE | 2023-07-14 14:04 | CON.GI ---
Addendum entered and electronically signed by Varsha Becerra MD 07/14/23 15:35:
I saw and examined the patient.
The TALENT ACQUISITION PROJECT MANAGER's note was reviewed and I agree with the note.
Comment: This is a 57-year-old male who has a history of alcohol cirrhosis with recent multiple admissions for recurrent hepatic encephalopathy most likely from med noncompliance who was recently discharged from [facility] on who was brought in
again with symptoms of altered mental status. His admission ammonia was 147 he is currently oriented to person and is able to say that he is in the hospital but not oriented to time. He also denies any abdominal pain, no fevers or chills reported.
no withdrawal symptoms currently.
Assessment and plan alcoholic cirrhosis with recurrent hepatic encephalopathy, no signs of infection. His sodium and potassium levels are normal, he also had a recent ultrasound on 07/07/2023 that showed cirrhosis with no mass, splenomegaly noted and
only trace ascites was noted. AFP on 07/06/23 was normal- 6.28. Started him on lactulose enemas every 4 hours may need to increase to every 2 if no improvement and once able to tolerate p.o. will restart him on Xifaxan and switch to p.o. lactulose.
2. Also noted gallstones on ultrasound but asymptomatic from it. no signs of acute cholecystitis.
3. He does have mildly elevated LFTs from underlying alcoholic cirrhosis unclear if he was drinking prior to admission. He did have hepatitis serologies on 07/07/2023 hep A antibody total is positive, hepatitis B surface antibody is positive likely
from prior vaccination, HB surface antigen and B core antibody total are negative and hep C antibody was also negative.
Original Note:
Consultation
-
Date/Time Consultation Requested: 07/14/23 1220
Date/Time Consultation Performed: 07/14/23 1400
Requesting Provider: DEV Hopkins
Performing Provider: DEV Moreno, Varsha Becerra MD
Reason for Consultation: hepatic encephalopathy
Medical History
Chief Complaint / HPI
Chief Complaint: change in mental status
History of Present Illness:
Pt is a 57yo with recurrent admission with hx cirrhosis presents with change in mental status [facility] and noted with confusion. Pt with recent admission 06/26-07/01 then 07/06 - with similar symptoms and concern for
encephalopathy with inability to take lactulose. On discharge ammonia was 51 and now was 147 on return. During last visit I reviewed history with sister. Patient is a and [facility].
He in originally from [place] has been in several rehab program including [facility] in [place] along with [place] [facility] [place] Sister related hx ETOH use even in 1 day transition in past. Pt states
ETOH several years ago but now states 6 hours ago but noted with confusion in exam.There was also question of hep C in past but RNA neg. Per sister prolonged admission in [place] which sounds like ETOH hepatitis and prolonged ETOH withdrawal and
was told he was not liver transplant candidate.
Pt is currently lethargic but denies dysphagia, GERD, nausea, vomiting, abdominal pain, diarrhea, constipation or rectal bleeding. Hx prior EGD and colonoscopy several years ago. Sister did not recall findings.
Past Medical History
Past Medical History: HTN, NIDDM, Psychiatric (depression) and Other (cirrhosis with hepatic encephalopathy, thrombocytopenia, hyponatremia, anemia, restless leg syndrome)
Social History
Tobacco: Former Smoker
Alcohol: Chronic Alcoholic (last ? several months ago)
Drug: Marijuana (possible in past and prior hx chronic pain med use with narcotic addition)
[facility]
Employment: Disabled
Family History
Family History: Other (father with COPD, mother CVA, no family member with cirrhosis)
Allergies / Home Medications
Allergy/AdvReac Type Severity Reaction Status Date / Time
bee venom protein (honey bee) Allergy Unknown Verified 06/26/23 18:07
Medication Instructions Recorded
ascorbic acid (vitamin C) 500 mg 500 mg PO DAILY Supplement 06/26/23
tablet (Vitamin C)
diclofenac sodium 1 % topical gel 1 g topical DAILYPRN PRN apply to 06/26/23
B/L knees
docusate sodium 100 mg capsule 100 mg PO BID Constipation 06/26/23
ferrous sulfate 325 mg (65 mg 325 mg PO DAILY Supplement 06/26/23
iron) tablet
fluticasone 250 mcg-salmeterol 50 1 inh inhalation R BID 06/26/23
mcg/dose blistr powdr for Lung/Breathing Issues
inhalation (Wixela Inhub)
insulin aspart U-100 100 unit/mL 0 sliding scale dose SC ACHS 06/26/23
(3 mL) subcutaneous pen (Novolog Diabetes
FlexPen U-100 Insulin aspart)
ipratropium 0.5 mg-albuterol 3 mg 3 ml inhalation R TID 06/26/23
(2.5 mg base)/3 mL nebulization Lung/Breathing Issues
soln
lisinopril 10 mg tablet 10 mg PO DAILY Blood Pressure 06/26/23
prazosin 5 mg capsule 5 mg PO HS Blood Pressure 06/26/23
aripiprazole 2 mg tablet 2 mg PO HS Mental Health/Anxiety 07/01/23
#30 tabs
lactulose 10 gram/15 mL oral 45 ml PO TID Liver Issues #0 mL 07/01/23
solution
sodium bicarbonate 650 mg tablet 1,300 mg PO TID Acidosis #90 tabs 07/01/23
spironolactone 100 mg tablet 50 mg PO DAILY Liver Issues #0 tabs 07/01/23
insulin glargine 100 unit/mL (3 17 unit SC HS diabetes 07/06/23
mL) subcutaneous pen (Basaglar
KwikPen U-100 Insulin)
venlafaxine 37.5 mg 37.5 mg PO DAILY depression 07/06/23
capsule,extended release 24 hr
(Effexor XR)
venlafaxine 75 mg capsule,extended 75 mg PO DAILY depression 07/06/23
release 24 hr
folic acid 1 mg tablet 1 mg PO DAILY #0 tabs 07/08/23
insulin aspart U-100 100 unit/mL 5 unit (0.05 mL) SC AC diabetes 07/08/23
(3 mL) subcutaneous pen (Novolog #0 mL
FlexPen U-100 Insulin aspart)
rifaximin 550 mg tablet (Xifaxan) 550 mg PO BID #60 tabs 07/08/23
thiamine HCl (vitamin B1) 100 mg 100 mg PO BID #0 tabs 07/08/23
tablet
Review of Systems
-
History Source: Patient and Family
Constitutional: Reports Weight Loss (? per patient few lbs ) and Fatigue
EENT: Reports No Symptoms
Respiratory: Reports No Symptoms
Cardiac: Reports No Symptoms
Abdomen/GI: Reports No Symptoms
: Reports No Symptoms
Neurological: Reports Weakness and Other (confusion)
Endocrine: Reports No Symptoms
Hematologic/Lymphatic: Reports No Symptoms
Vital Signs
Temp Pulse Resp BP Pulse Ox
97.7 F 64 11 137/62 100
07/14/23 09:52 07/14/23 11:45 07/14/23 11:45 07/14/23 12:00 07/14/23 12:00
Physical Exam
Exam
General: Other (some word finding difficulty but answers most question )
HEENT: Normocephalic and Anicteric
Respiratory: Clear
Cardiac: Regular Rhythm
GI: Soft, Non Tender and Non Distended
Musculoskeletal: No Clubbing and No Cyanosis
Skin: Warm and Other (multiple bruises on arms, abdomen etc)
Neuro: Other (lethargic but arousable )
Psych: Calm
Results
WBC 2.7 10^3/uL (4.8-10.8) L 07/14/23 09:47
Hgb 10.7 g/dL (13.0-18.0) L 07/14/23 09:47
Hct 30.0 % (39.0-52.0) L 07/14/23 09:47
MCV 97.4 fL (80.0-94.0) H 07/14/23 09:47
Plt Count 59 10^3/uL (130-400) L D 07/14/23 09:47
Absolute Neuts (auto) 1.2 10^3/uL (1.4-6.5) L 07/14/23 09:47
PT 17.1 Sec (11.4-14.6) H 07/14/23 09:47
INR 1.39 07/14/23 09:47
Sodium 137 mmol/L (135-145) 07/14/23 09:47
Potassium 4.5 mmol/L (3.5-5.1) 07/14/23 09:47
Chloride 112 mmol/L (98-107) H 07/14/23 09:47
Carbon Dioxide 22 mmol/L (22-30) 07/14/23 09:47
BUN 18 mg/dl (9-20) 07/14/23 09:47
Creatinine 1.2 mg/dL (0.7-1.3) 07/14/23 09:47
Calcium 8.9 mg/dl (8.4-10.2) 07/14/23 09:47
Total Bilirubin 2.4 mg/dl (0.2-1.3) H 07/14/23 09:47
AST 92 U/L (17-59) H 07/14/23 09:47
ALT 69 U/L (0-50) H 07/14/23 09:47
Alkaline Phosphatase 102 U/L (38-126) 07/14/23 09:47
Lipase 826 U/L (23-300) H 07/14/23 09:47
Diagnostic Image Results:
07/07 US abdomen complete
Cirrhosis. No focal intrahepatic hyper or hypoechoic mass is sonographically demonstrable. Splenomegaly. Portal hypertension with recanalization of the paraumbilical vein, and prominent venous structures in the splenic hilum.
Cholelithiasis. Mild gallbladder wall thickening. Possibly related to chronic cholecystitis.
07/06 AFP 6.28
Trace ascites.
Prior GI Procedures:�
EGD:� several years ago sister unaware of findings
Colonoscopy:� several years ago sister unware of findings
Assessment / Plan
-
Pt is a 57yo with recurrent admission with hx cirrhosis presents with change in mental status currently at [facility] and noted with confusion. Pt with recent admission 06/26-07/01 then 07/06 - with similar symptoms and concern for
encephalopathy with inability to take lactulose. On discharge ammonia was 51 and now was 147 on return. During last visit I reviewed history with sister. Patient is a and has been through [facility] for [facility] with alcohol issues.
He in originally from [place] has been in several rehab program including [facility] in [place] along with recent [facility] [place] Sister related hx ETOH use even in 1 day transition in past. Pt states
ETOH several years ago but now states 6 hours ago but noted with confusion in exam.There was also question of hep C in past but RNA neg. Per sister prolonged admission in [place] which sounds like ETOH hepatitis and prolonged ETOH withdrawal and
was told he was not liver transplant candidate.
-hepatic encephalopathy with recurrent admission
-cirrhosis
-coagulopathy
-thrombocytopenia
-ETOH abuse
other medical problems:
-anxiety
-chronic back issue with prior narcotic use
-DM
-HTN
-anemia
-restless leg syndrome
-tobacco ause
PLAN:
etiology of hepatic encephalopathy likely related to medication non compliance
recent infectious work up neg last week
if not improving or develops fever will repeat testing
for lactulose enemas Q 4 hours -- advised to call for update if able to tolerate oral meds and can change to oral dosing
monitor mental status
keep electrolytes corrected
recent US and AFP completed 07/06 for HCC screening
will need follow up after discharge for repeat EGD for EV screening-- [facility] followed [facility] in [facility] and due follow up
in past not candidate for liver transplant in past due to continued ETOH use
resume Aldactone 50mg daily ( was not on lasix prior to admission ) when able to take PO meds
ETOH and tobacco abstinence
will follow
-
-
Thank you for consultation and allowing me to participate in the patient's care. Please call the personnel director GI physician during the after hours with any questions or concerns.
[2023-07-14 14:09] LABS: Direct Bilirubin 0.6 mg/dl (0.0-0.4)
--- NOTE | 2023-07-14 15:21 | CM ---
Cm noted from last admit patient only has VA insurance. Call placed to Valery from the [facility] [phone] ext [phone]. She asks that hospitalist at call their [facility] to have to conversation on best
place to continue patient's care. [facility] phone [phone]. sent TT to Dr Alyce NP in ER [facility] and to Dr. Leija requesting call be make.
Spoke to Jonas Napoles Np at [facility] where patient resides. She said patient has to see [facility] but he keeps missing appts due to hospitalizations. She feels the VA admitte him to [facility] would be in his
best interests.
--- NOTE | 2023-07-14 16:28 | CM ---
Called placed to Jonas Napoles NP, at [facility]([phone]).Patient was placed in their facility by [facility], prior to there he had been in a sober housing in [place] also thru the [facility] for at least 4 months. He went out and allegedly had a
drink that he did not realize had alcohol in it, and was unable to stay at [facility] and came to their facility. Per Jonas pt is normally fully independent but has no short term memory and is also a brittle diabetic. He was in the process of
transitioning to a PCP in [facility] when he needed to be admitted to . She said that when he is medically stable for discharge he will be in need of assisted living through the [facility] , hopefully closer to his original home in [place] where he has
elderly parents and a Sister( Pina Jhonathan [phone]). Jonas stated she spoke to Pina and she is aware he in the ED . She apparently is his POA and is looking for the POA document to clarify if it is Medical or both Medical or Financial.
Jonas also stated that 4 years ago he had been on a Liver Transplant list through the [facility], but not sure of the current status. He also has been tapped in the past but she does not know the last time that was done.
[2023-07-14 18:41] LABS: Glucose - Point of Care 120 mg/dl (70-99)
[2023-07-14] MEDS: NOVOLOG FLEXPEN-LOW RESISTANCE SC (19:55)
[2023-07-14] MEDS: DUONEB 3 ML INH (20:29)
[2023-07-14] MEDS: ADVAIR HFA 115/21 MCG INHALER 2 PUFF INH (20:29)
[2023-07-14] MEDS: NOVOLOG FLEXPEN-HIGH RESISTANCE SC (21:38)
[2023-07-14] MEDS: SODIUM BICARBONATE PO (21:39)
[2023-07-14] MEDS: ABILIFY 2 MG PO (21:43)
[2023-07-14] MEDS: SODIUM BICARBONATE 1300 MG PO (21:43)
[2023-07-14] MEDS: MINIPRESS 5 MG PO (21:43)
[2023-07-14] MEDS: VITAMIN B1 100 MG PO (21:43)
[2023-07-14] MEDS: XIFAXAN 550 MG PO (21:44)
[2023-07-14] MEDS: COLACE 100 MG PO (21:44)
[2023-07-14] MEDS: LACTULOSE ENEMA RECTAL (21:55)
[2023-07-14 22:05] LABS: Glucose - Point of Care 131 mg/dl (70-99)
[2023-07-14] MEDS: LANTUS 0.170000000000000012 UNITS SC (22:10)
[2023-07-14] MEDS: DUPHALAC/CHRONULAC PO (23:47)
--- NOTE | 2023-07-15 00:16 | PTCARENOTE ---
Pt ordered to receive Lactulose enemas Q4h. Per gastro note, lactulose to be changed to PO if tolerating PO intake. Dr. Becerra notified that pt tolerating PO intake. stated that rectal lactulose can be changed to PO. DEV Vasquez notified and
order changed to PO (see mar). Pt received lactulose enema at 2210. After enema, pt had 4 yellow unmeasurable liquid stools that saturated the bed. Continuing plan of care.
--- NOTE | 2023-07-15 05:14 | W.PN.UPDATE ---
Update Note
Progress Note Update
low platelets noted 59, better than previous platelets 39, Will stop Lovenox, will continue SCD's.
[2023-07-15 05:21] LABS: Hematocrit 25.4 % (39.0-52.0); Hemoglobin 9.1 g/dL (13.0-18.0); Mean Corp Hgb Conc. 35.8 g/dL (33.0-37.0); Mean Corpuscular Hgb 34.2 pg (27.0-31.0); Mean Corpuscular Volume 95.5 fL (80.0-94.0); Mean Platelet Volume 10.2 fL (7.4-10.4); Platelet Count 44 10^3/uL (130-400); Red Blood Cell Count 2.66 10^6/uL (4.70-6.10); Red Cell Dist. Width 15.5 % (11.5-14.5); White Blood Cell Count 2.5 10^3/uL (4.8-10.8)
[2023-07-15 05:32] LABS: Ammonia 35 umol/L (9-30)
[2023-07-15 06:49] LABS: ALT (SGPT) 50 U/L (0-50); AST (SGOT) 64 U/L (17-59); Albumin 2.4 g/dl (3.5-5.0); Alkaline Phosphatase 71 U/L (38-126); Blood Urea Nitrogen 20 mg/dl (9-20); Calcium 8.9 mg/dl (8.4-10.2); Carbon Dioxide 18 mmol/L (22-30); Chloride 113 mmol/L (98-107); Estimated Creatinine Clearance 91 ml/min; Glucose 136 mg/dl (70-99); Potassium 3.8 mmol/L (3.5-5.1); Sodium 139 mmol/L (135-145); Total Bilirubin 2.2 mg/dl (0.2-1.3); Total Protein 5.5 g/dl (6.3-8.2); eGFR > 60.00
[2023-07-15 07:00] VITALS: BP 111/59
[2023-07-15] MEDS: DUONEB INH (07:11)
[2023-07-15] MEDS: ADVAIR HFA 115/21 MCG INHALER 2 PUFF INH (07:41)
[2023-07-15] MEDS: DUONEB 3 ML INH ×2 (07:41→14:33)
[2023-07-15 08:09] LABS: Glucose - Point of Care 151 mg/dl (70-99)
--- NOTE | 2023-07-15 09:16 | W.PN.HOSP.TC ---
Addendum entered and electronically signed by Jasbir Mead DO 07/15/23 14:57:
I spoke with GI service, they are okay with discharge today. I sent a prescription for rifaximin to [facility].
Jazmyne Florian from the GI service was able to find samples of rifaximin to provide the patient with 9 tablets until he can get the prescription filled next week.
Original Note:
Today's Communication/Plan
-
Continue lactulose, rifaximin
Resume mealtime insulin
Assessment / Plan
Assessment / Plan
Gen-AAOx3, NAD
HEENT-NC, AT, anicteric, clear oral mm
Neck-supple
CV-reg, no M, +S1/S2
Lungs-clear B/L
Abd-soft, NT, ND
Ext-no edema
Musculoskeletal-no cyanosis, clubbing
Skin-warm and dry
Neuro-grossly non-focal, mild tremors
Psych-calm, cooperative
Recurrent hepatic encephalopathy -now the patient more awake, he states that he has been compliant with the lactulose. Denies missing any medication doses. States he has been having 3 bowel movements a day prior to admission. Was not taking
rifaximin as he is not familiar with this medication. I am not sure why he was not taking it as he was discharged on it recently. Now that he is much more awake can change to oral lactulose. Resume rifaximin.
Chronic pancytopenia -likely due to underlying cirrhosis.� Counts are stable.
Chronic alcoholic cirrhosis
History of alcohol dependence -reportedly sober for several years now.
Essential hypertension -stable.
DM2 with hyperglycemia -hemoglobin A1c was 8.8% on 06/27/2023.� Glucose 151 this morning, 131 last night. He received 17 units of Lantus last night. Resume NovoLog 5 units AC at home dose.
Restless leg syndrome
COPD without exacerbation -he is on fluticasone propionate/salmeterol inhaler twice daily.� As needed DuoNebs.
Obesity due to excess calories
Full code
Dispo -he has made a remarkable recovery over the past 24 hours. Encephalopathy is almost completely gone. Will discuss with GI whether or not he still needs to be transferred to the [facility]. Apparently they did not have a bed
yesterday. I did call the [facility] this morning and I got a voicemail.
Anticipated Discharge: Within 24 hours
Subjective/Interval History
-
Date of Service: July 15, 2023
Patient seen and examined. Looks and feels much better. No complaints. Finished breakfast.
Objective Data
-
Labs:
Laboratory Results
07/15/23
05:13
WBC 2.5 L
Hgb 9.1 L
Hct 25.4 L
Plt Count 44 L D
Sodium 139
Potassium 3.8
Chloride 113 H
Carbon Dioxide 18 L
BUN 20
Creatinine 1.2
Glucose 136 H
Calcium 8.9
Total Bilirubin 2.2 H
AST 64 H
ALT 50
Alkaline Phosphatase 71
Vital Signs:
Vital Signs
Temp Pulse Resp BP Pulse Ox
97.8 F 89 16 111/59 99
07/15/23 07:00 07/15/23 07:45 07/15/23 07:45 07/15/23 07:00 07/15/23 07:45
I&O
07/14/23 07/15/23 07/16/23
06:59 06:59 06:59
Intake Total 380 / 380
Balance 380 / 380
Review of Systems
-
History Source: Patient
All other systems: Reviewed and negative
[2023-07-15] MEDS: VITAMIN B1 100 MG PO (09:53)
[2023-07-15] MEDS: DUPHALAC/CHRONULAC 20 GRAMS PO (09:53)
[2023-07-15] MEDS: FEOSOL 325 MG PO (09:54)
[2023-07-15] MEDS: FOLVITE 1 MG PO (09:54)
[2023-07-15] MEDS: XIFAXAN 550 MG PO ×2 (09:54→15:30)
[2023-07-15] MEDS: ZESTRIL 10 MG PO (09:54)
[2023-07-15] MEDS: COLACE 100 MG PO (09:54)
[2023-07-15] MEDS: SODIUM BICARBONATE 1300 MG PO ×2 (09:54→15:30)
[2023-07-15] MEDS: ALDACTONE 50 MG PO (09:54)
[2023-07-15] MEDS: NOVOLOG FLEXPEN-LOW RESISTANCE 1 UNITS SC ×2 (09:54→12:40)
[2023-07-15] MEDS: NOVOLOG FLEXPEN-HIGH RESISTANCE 5 UNITS SC ×2 (09:55→12:40)
[2023-07-15 11:41] LABS: Glucose - Point of Care 187 mg/dl (70-99)
[2023-07-15] MEDS: EFFEXOR XR 37.5 MG PO (12:24)
[2023-07-15] MEDS: EFFEXOR XR 75 MG PO (12:24)
--- NOTE | 2023-07-15 12:32 | W.PN.GI.CBS2 ---
Addendum entered and electronically signed by DEV Bennett 07/15/23 16:47:
[facility] with [facility] multiple etiology for recurrent HE. Etiology unclear with no bleeding, stable electrolytes, no infection, no HCC etc. Confirmed pt has been compliance with lactulose at high dose. Best option in adding Xifaxan 550mg BID as
improved when added inpatient to prevent recurrence. Will also need hepatology evaluation to help ID any other cause for recurrent HE.
Addendum entered and electronically signed by Varsha Becerra MD 07/15/23 14:47:
He also has gallstones noted on ultrasound but currently asymptomatic from it
Addendum entered and electronically signed by Varsha Becerra MD 07/15/23 14:46:
I saw and examined the patient.
The SPORTS ANCHOR's note was reviewed and I agree with the note.
Comment: Alcohol cirrhosis with recurrent hepatic encephalopathy he says he has been compliant with his lactulose had not had a chance to case picker the Xifaxan yet that he was discharged on after his recent admission. We have given him some samples
of Xifaxan till his appointment at the [facility], reinforced compliance with lactulose and Xifaxan. No signs of infection, electrolytes pretty unremarkable with normal potassium at 3.8, ammonia trended down from 147-35. He also says he has been sober and
has not had recent alcohol
He did have an elevated lipase of 826 on admission with no symptoms and on recent ultrasound pancreas was normal repeat panel lipase from today is 171.
Okay to DC from GI perspective with follow-up soon at the [facility]
Addendum entered and electronically signed by DEV Bennett 07/15/23 13:25:
added repeat lipase for today
Addendum entered and electronically signed by DEV Bennett 07/15/23 13:22:
pt lipase 826 on admission. No abdominal pain, pancreas normal on US 07/07
Original Note:
Today's Communication / Plan
-
etiology of hepatic encephalopathy unclear -- pt admits to not missing medication, electrolytes stable, no infectionon recent work up no ascites to tap, creat stable, heme neg no signs of GI bleed, no constipation, no HCC, denies any recent ETOH
use.
07/13 MELD 3.0 16
pt more awake today still some asterixis
cont Lactulose will change to home dose of 45ml(30gram) TID
cont Xafaxan BID -- sample given to case management til VA can provide meds
monitor mental status
keep electrolytes corrected
recent US and AFP completed 07/06 for HCC screening
will need follow up after discharge for repeat EGD for EV screening-- pt will need VA follow up after discharge
in past not candidate for liver transplant in past due to continued ETOH use due for VA follow up to discuss
cont Aldactone 50mg daily ( was not on lasix prior to admission ) when able to take PO meds
ETOH and tobacco abstinence
will follow
Assessment / Plan
-
Pt is a 57yo with recurrent admission with hx cirrhosis presents with change in mental status currently at [facility] and noted with confusion. Pt with recent admission 06/26-07/01 then 07/06 - with similar symptoms and concern for
encephalopathy with inability to take lactulose. On discharge ammonia was 51 and now was 147 on return. During last visit I reviewed history with sister. Patient is a and [facility].
He in originally from [place] has been in several rehab program including [facility] in [place] along with [facility] [place], [place] and now [facility]. Sister related hx ETOH use even in 1 day transition in past. Pt states
ETOH several years ago but now states 6 hours ago but noted with confusion in exam.There was also question of hep C in past but RNA neg. Per sister prolonged admission in [place] which sounds like ETOH hepatitis and prolonged ETOH withdrawal and
was told he was not liver transplant candidate.
-hepatic encephalopathy with recurrent admission
-cirrhosis
-coagulopathy
-thrombocytopenia
-ETOH abuse
other medical problems:
-anxiety
-chronic back issue with prior narcotic use
-DM
-HTN
-anemia
-restless leg syndrome
-tobacco ause
PLAN:
etiology of hepatic encephalopathy unclear -- pt admits to not missing medication, electrolytes stable, no infection on recent work up no ascites to tap, creat stable, heme neg no signs of GI bleed, no constipation, no HCC, denies any recent ETOH
use.
3 MELD 3.0 16
pt more awake today still some asterixis
cont Lactulose will change to home dose of 45ml(30gram) TID
cont Xafaxan BID -- sample given to case management til VA can provide meds
monitor mental status
keep electrolytes corrected
recent US and AFP completed 07/06 for HCC screening
will need follow up after discharge for repeat EGD for EV screening-- pt will need VA follow up on discharge
in past not candidate for liver transplant in past due to continued ETOH use due for VA follow up to discuss
cont Aldactone 50mg daily ( was not on lasix prior to admission ) when able to take PO meds
ETOH and tobacco abstinence
spoke with Jonas Napoles SPORTS ANCHOR at facility confirms no med changes or skipped meds stressed need for follow up which is to be soon as looking for assisted living for patient
will follow
Subjective
Subjective
Date of Service: July 15, 2023
3 4 stools, on ADA diet no fever or WBC elevation -- pt more awake denies medication non compliance at [facility]
Objective
Data Reviewed
Laboratory Data:
Laboratory Results
07/15/23 05:13
07/15/23 05:13
Laboratory Results
PT 17.1 Sec (11.4-14.6) H 07/14/23 09:47
INR 1.39 07/14/23 09:47
Total Bilirubin 2.2 mg/dl (0.2-1.3) H 07/15/23 05:13
AST 64 U/L (17-59) H 07/15/23 05:13
ALT 50 U/L (0-50) 07/15/23 05:13
Alkaline Phosphatase 71 U/L (38-126) 07/15/23 05:13
Lipase 826 U/L (23-300) H 07/14/23 09:47
Vital Signs and I&O:
Vital Signs
Temp Pulse Resp BP Pulse Ox
97.8 F 89 16 111/59 99
07/15/23 07:00 07/15/23 07:45 07/15/23 07:45 07/15/23 09:54 07/15/23 07:45
I&O
07/14/23 07/15/23 07/16/23
06:59 06:59 06:59
Intake Total 380 / 380
Balance 380 / 380
Physical Exam
Physical Exam
HEENT: Anicteric and Moist mucous membranes
Cardiology: Normal Sinus Rhythm
Pulmonary: Clear
GI: Soft, Non Distended and Non Tender
Rectal: Other (yellow heme neg )
Extremities: No Edema
Neuro: Non Focal and Other (mild tremor)
--- NOTE | 2023-07-15 13:13 | CM ---
indicated that patient has improved and can return to [facility].
Spoke with Jonas Napoles NP, at [facility]([phone])she was notified that he is discharge today.
Pt provided with Xifaxan sample . Jonas said to give to patient and he will given medicines as ordered.
DC summary to be given to patient.
As per Jonas van will be provided him ride back to house.
PLAN Return to [facility] via their van
[2023-07-15 13:53] LABS: Lipase 171 U/L (23-300)
--- NOTE | 2023-07-15 14:55 | W.DS.TRANS ---
DC Summary - Receiving Teller
-
Discharge Instructions:
Discharge Diagnosis/Procedures Hepatic encephalopathy, cirrhosis, pancytopenia
Diet Diabetic, Carb Controlled,2 Gram Sodium
Activity As tolerated
Driving Restrictions No driving
Bathing Restrictions None
Instructions:
Stand-Alone Forms:
Changes to Home Medications: No
Discharge Medications:
DC Medications w/original date entered in [employer]
ascorbic acid (vitamin C) 500 mg tablet (Vitamin C) 500 mg PO DAILY Supplement 06/26/23
diclofenac sodium 1 % topical gel 1 g topical DAILYPRN PRN apply to B/L knees 06/26/23
docusate sodium 100 mg capsule 100 mg PO BID Constipation 06/26/23
ferrous sulfate 325 mg (65 mg iron) tablet 325 mg PO DAILY Supplement 06/26/23
fluticasone 250 mcg-salmeterol 50 mcg/dose blistr powdr for inhalation ([employer] Inhub) 1 inh inhalation R BID Lung/Breathing Issues 06/26/23
insulin aspart U-100 100 unit/mL (3 mL) subcutaneous pen (Novolog FlexPen U-100 Insulin aspart) 0 sliding scale dose SC ACHS Diabetes 06/26/23
ipratropium 0.5 mg-albuterol 3 mg (2.5 mg base)/3 mL nebulization soln 3 ml inhalation R TID Lung/Breathing Issues 06/26/23
lisinopril 10 mg tablet 10 mg PO DAILY Blood Pressure 06/26/23
prazosin 5 mg capsule 5 mg PO HS Blood Pressure 06/26/23
aripiprazole 2 mg tablet 2 mg PO HS Mental Health/Anxiety #30 tabs 07/01/23
lactulose 10 gram/15 mL oral solution 45 ml PO TID Liver Issues #0 mL 07/01/23
sodium bicarbonate 650 mg tablet 1,300 mg PO TID Acidosis #90 tabs 07/01/23
spironolactone 100 mg tablet 50 mg PO DAILY Liver Issues #0 tabs 07/01/23
insulin glargine 100 unit/mL (3 mL) subcutaneous pen (Basaglar KwikPen U-100 Insulin) 17 unit SC HS diabetes 07/06/23
venlafaxine 37.5 mg capsule,extended release 24 hr (Effexor XR) 37.5 mg PO DAILY depression 07/06/23
venlafaxine 75 mg capsule,extended release 24 hr 75 mg PO DAILY depression 07/06/23
folic acid 1 mg tablet 1 mg PO DAILY #0 tabs 07/08/23
insulin aspart U-100 100 unit/mL (3 mL) subcutaneous pen (Novolog FlexPen U-100 Insulin aspart) 5 unit (0.05 mL) SC AC diabetes #0 mL 07/08/23
thiamine HCl (vitamin B1) 100 mg tablet 100 mg PO BID #0 tabs 07/08/23
rifaximin 550 mg tablet (Xifaxan) 550 mg PO BID #60 tabs 07/15/23
Home Medication Changes
Pending Results: No
[2023-07-15] MEDS: DUPHALAC/CHRONULAC 30 GRAMS PO (15:32)
[2023-07-16 08:54] LABS: Alcohol, Urine Screen/Quant Negative mg/dL (Cutoff 40)
== END 2023-07-15 16:27 | disposition home or self-care (01) | DRG 433 ==
LOC: 3 WEST ACU 13:33
PROVIDERS: Nurse Practitioner; Registered Nurse; ADMITTING PHYSICIAN Hospitalist; CONSULT PHYSICIAN Internal Medicine Gastroenterology; EMERGENCY PHYSICIAN Emergency Medicine
DX: K70.30 Alcoholic cirrhosis of liver without ascites (principal); D61.818 Other pancytopenia; D68.9 Coagulation defect, unspecified; K76.6 Portal hypertension; E87.1 Hypo-osmolality and hyponatremia; K76.82 Hepatic encephalopathy; D63.8 Anemia in other chronic diseases classified elsewhere; E11.65 Type 2 diabetes mellitus with hyperglycemia; I10 Essential (primary) hypertension; J44.9 Chronic obstructive pulmonary disease, unspecified; G25.81 Restless legs syndrome; E66.09 Other obesity due to excess calories; G89.29 Other chronic pain; F41.9 Anxiety disorder, unspecified; K80.20 Calculus of gallbladder without cholecystitis without obstruction; F32.A Depression, unspecified; F10.21 Alcohol dependence, in remission; Z91.148 Patient's other noncompliance with medication regimen for other reason; Z68.34 Body mass index [BMI] 34.0-34.9, adult; Z91.030 Bee allergy status; Z79.4 Long term (current) use of insulin; Z91.85 Personal history of military service; Z87.891 Personal history of nicotine dependence
CPT/HCPCS: 70450; 80053; 80307; 81003; 82077; 82140; 82248; 82962; 83690; 85025; 85027; 85610; 87070; 94640; 99285